=== PATIENT | male | born 1940 | race Caucasian/White ===

== ENCOUNTER 2023-10-09 04:10 | Emergency (ER) | payer MEDICARE, OTHER, SELFPAY ==
[2023-10-09 04:11] VITALS: BP 196/104; PULSE 83; RESP 16; TEMP 35.9; O2SAT 96; BMI 37.8
--- NOTE | 2023-10-09 04:39 | CT_ITS ---
INDICATION: RLQ pain EXAMINATION: CT ABDOMEN AND PELVIS WITHOUT CONTRAST - CT Abdomen And Pelvis W/O Contrast Injection TECHNIQUE: Helically acquired images were obtained of the abdomen and pelvis without oral or IV contrast. A radiation dose optimization technique was used for this scan. IV Contrast dosage and agent: None. Oral contrast: None. RADIATION DOSAGE (If Supplied By Facility): CTDIvol = ( 20.77 ) mGy, DLP = ( 1230.08 ) mGycm COMPARISON: No relevant prior comparison study available FINDINGS: LOWER CHEST: Groundglass opacities dependently could be atelectasis or chronic change. Coronary artery calcifications. No cardiomegaly or pericardial effusion. LIVER: The liver is normal in size, shape, and attenuation. No focal mass. GALLBLADDER AND BILIARY TREE: Cholecystectomy. No intra- or extrahepatic biliary ductal dilation. PANCREAS: No focal cystic or solid mass. SPLEEN: Normal size without focal cystic or solid mass. ADRENAL GLANDS: No nodules. KIDNEYS AND URETERS: Normal renal size and position. Simple cyst of the right kidney requires no specific follow-up. Mild to moderate bilateral hydroureteronephrosis. No obstructing calculus. The ureters are dilated to the bladder. PERITONEUM: No ascites or free air. No other fluid collection. BOWEL: The stomach is unremarkable. Normal caliber small bowel. No obstruction. Colonic diverticulosis without diverticulitis. No colonic wall thickening or inflammatory changes. No evidence of acute appendicitis. LYMPH NODES: No enlarged mesenteric or retroperitoneal lymph nodes. VESSELS: Aorta is non-dilated. Mild atherosclerotic calcifications. URINARY BLADDER: Distended bladder. No wall thickening. REPRODUCTIVE ORGANS: Enlarged prostate encroaching upon the base of the bladder. The prostate measures 7 cm transverse. ABDOMINAL WALL: No discrete abdominal or pelvic wall hernia. BONES: No acute or suspicious osseous abnormality. Degenerative changes are seen throughout the spine. Mild degenerative changes of the hips. CT/Abdomen/Pelvis without Cont IMPRESSION: Prostatomegaly with significantly distended bladder. Mild to moderate bilateral hydroureteronephrosis. This suggests outlet obstruction. Electronically Signed: Robert Valle MD at 5:54 EST ,
--- NOTE | 2023-10-09 04:42 | EDS_ITS ---
HPI HPI - GI History of Present Illness Chief Complaint: Abd Pain Informant: patient and spouse/S.O. Narrative Narrative: Patient presents with lower abdominal discomfort. Patient states that about a week or week and a half ago he started to get kind of discomfort in his lower abdomen. It is a little bit right of center but not completely to the right lower quadrant. He also noticed that he had to strain more to move his bowels. He still moving them. There is no blood or black. But he does have to push harder. He also then started to having occasional problems passing his urine. Sometimes he has a good stream and sometimes he has to push harder to get the urine out. Occasionally that has a small amount of discomfort with it. All these problems are new. He has had no fevers chills nausea or vomiting. He still eating and drinking fine. Last colonoscopy was approximately 5 years ago. He thinks he might have been told there was a small diverticula on one of his prior colonoscopies. But he is never had diverticulitis. Only abdominal surgery is cholecystectomy in the . Past medical history: High blood pressure high cholesterol Medications: Atenolol and atorvastatin No known drug allergies Surgeries: Cholecystectomy [facility] Medical History Failed total knee, left Home Medications atenolol 25 mg tablet 25 mg PO DAILY 10/09/23 [History Last Taken Unknown] atorvastatin 10 mg tablet 10 mg PO DAILY 10/09/23 [History Last Taken Unknown] tamsulosin 0.4 mg capsule (Flomax) 0.4 mg PO DAILY #30 caps 10/09/23 [Rx Last Taken Unknown] Allergy/AdvReac Type Severity Reaction Status Date / Time bee venom protein (honey bee) Allergy Mild Upset Verified 10/09/23 04:16 Stomach Surgical History (Updated 10/09/23 @ 04:17 by Naty Posada) History of cholecystectomy Social History Smoking Status: Never smoker ROS ROS ED ROS Narrative A complete review of systems was performed and is negative except as documented in the history of present illness. Some specific details below. Constitutional: No recent fevers or chills. He does not feel generalized ill. No malaise. EYE: No visual complaints or pain. ENT: No difficulty swallowing. No swelling. No pain. No GERD CV: No chest pain or palpitations. Respiratory: No dyspnea. No hemoptysis. No difficulty taking breaths. GI: Please see history of present illness. : See history of present illness. Musculoskeletal: No recent trauma. No pains. Skin: No rash. Nondiaphoretic. Neuro: No weakness or numbness. Endocrine: No polyuria or polydipsia. EXAM Physical Exam Narrative Exam Narrative: CONSTITUTIONAL: Patient is nontoxic in appearance. The patient looks comfortable. HEENT: No notable trauma. Mucous membranes moist. No sinus tenderness. No indication of pain with swallowing. EYES: No conjunctival injection. No proptosis. No pallor. No icterus. CARDIOVASCULAR: Regular rate. Regular rhythm. No notable murmur. No JVD. RESPIRATORY: No respiratory distress. Breathing is unlabored. No wheezes. GASTROINTESTINAL: Abdomen is somewhat obese but does not look distended. Bowel sounds do sound normal. There is very mild tenderness across the lower abdomen slightly more right than left. But it is mild. There is no rebound or guar ding. I feel no mass. GENITOURINARY: No tenderness over the bladder. No CVA tenderness noted on either side. MUSCULOSKELETAL: Atraumatic. No peripheral edema. NEUROLOGICAL: Patient is alert and appropriate. No focal deficit noted. SKIN: No noted rashes. No diaphoresis. PSYCHIATRIC: Patient is calm. Mood is appropriate. Const Vital Signs: 10/09/23 04:11 10/09/23 04:50 10/09/23 06:15 Temperature 96.7 F L Temperature Source Temporal Pulse Rate 83 64 61 Respiratory Rate 16 18 16 Blood Pressure 196/104 H 198/98 H 191/102 H Blood Pressure Mean 134 131 131 Pulse Ox 96 94 97 Oxygen Delivery Method Room Air Room Air Room Air MDM MDM MDM Narrative Medical decision making narrative: Patient CBC shows no marked abnormalities. Hemoglobin and platelets are both normal. Patient's electrolytes show high BUN and creatinine. But I have no prior lab test. I tried to sign onto the [employer] system but I am not able to gain access tonight I do not know if this is an acute or chronic issue. Patient's urine is overall clean on his urinalysis. My independent interpretation of the CT scan of the abdomen shows diverticula but no acute diverticulitis. I do note that his bladder is quite large. This may be the cause of his symptoms. This CT was done after he gave the urine sample. Postvoid residual still shows 1000 cc when we are able to get a bladder scanner down here. The urinary obstruction could definitely cause his symptoms with a distended bladder. This may be contributing to his elevated creatinine although I do not know if this is new or not. In either case, placing a Urena should relieve his symptoms, pressure, and should improve his creatinine. I was able to discuss the case with Dr. Suárez. We discussed the history findings slight bleeding afterwards and the elevated creatinine. We both expect this creatinine to come down. He can follow-up with the patient beginning of this coming week. My concern was that the patient it does not have an established primary care doctor now. His recently retired and he is trying to get in with Dr. Garcia but does not have an appointment yet. But he will follow- up with urology. He very likely will need a TURP in the future. I will get him started on Flomax. We will leave the catheter in. I rechecked the patient his urine is already coming out clear. There never were clots. He had some pinkish colored urine but it is already clearing. Lab Data Attestation: I reviewed the patient's lab results. Labs: Laboratory Results - last 24 hr 10/09/23 10/09/23 04:23 04:35 WBC 7.2 RBC 5.17 Hgb 15.7 Hct 46.0 MCV 89.0 MCH 30.4 MCHC 34.1 RDW Std Deviation 40.1 RDW Coeff of Herminio 12.3 Plt Count 158 MPV 9.4 Immature Gran % (Auto) 0.300 Neut % (Auto) 66.2 Lymph % (Auto) 16.5 L [place] % (Auto) 11.6 H Eos % (Auto) 4.7 Baso % (Auto) 0.7 Absolute Neuts (auto) 4.7 Absolute Lymphs (auto) 1.18 Nucleated RBC % 0 Sodium 144 Potassium 4.0 Chloride 113 H Carbon Dioxide 22.0 Anion Gap 9 BUN 43 H Creatinine 3.96 H Estim Creat Clear Calc 14.15 Est GFR (MDRD) Af Amer 19 L Est GFR (MDRD) Non-Af 16 L BUN/Creatinine Ratio 10.9 Glucose 110 H Calcium 8.6 Urine Color Yellow Urine Clarity Clear Urine pH 5.0 Ur Specific Bryant 1.015 Urine Protein Negative Urine Glucose (UA) Normal Urine Ketones Negative Urine Occult Blood Negative Urine Nitrite Negative Urine Bilirubin Negative Urine Urobilinogen Normal Ur Leukocyte Esterase Negative Urine RBC 0 SEEN Urine WBC 0 SEEN Ur Squamous Epith Cells 0 SEEN Urine Bacteria 0 SEEN Urine Mucus 0 SEEN Radiography Diagnostic Testing: Clinical Impression(s) from Imaging Studies Abdomen/Pelvis CT 10/09/23 04:39 IMPRESSION: Prostatomegaly with significantly distended bladder. Mild to moderate bilateral hydroureteronephrosis. This suggests outlet obstruction. Electronically Signed: Robert Valle MD at 5:54 EST , Discharge Plan Triage Chief Complaint: Abd Pain ED Provider: Kleber Bear Dx/Rx/DC Orders Clinical Impression: Acute kidney injury, Hematuria, Acute urinary retention, Prostatic hypertrophy Instructions: ED BPH (Enlarged Prostate), ED Urinary Retention, Male Prescriptions: New tamsulosin [Flomax] 0.4 mg capsule 0.4 mg PO DAILY Qty: 30 0RF No Action atenolol 25 mg tablet 25 mg PO DAILY Patient Comments: TAKE 1 TABLET BY MOUTH EVERY DAY atorvastatin 10 mg tablet 10 mg PO DAILY Patient Comments: TAKE 1 TABLET BY MOUTH EVERY DAY Primary Care Provider: NOT,DEFINED Referrals: Danial Suárez MD [Med Staff - Active Staff] - As soon as possible (Call today for an appointment early this coming week.) NOT,DEFINED [Primary Care Provider] - Disposition Disposition: Home, Self Care
[2023-10-09 04:44] LABS: Bacteria 0 SEEN /hpf (None Seen); Mucous, Urine 0 SEEN /hpf (<or=2+); Red Blood Cells-Urine 0 SEEN /hpf (0-5); Squamous Epithelial Cells - UA 0 SEEN /hpf (0-5); White Blood Cells 0 SEEN /hpf (0-5)
[2023-10-09] MEDS: 0.9% Normal Saline (1000mL) 500 ML 1000 ML IV (04:46)
[2023-10-09 04:49] LABS: Absolute Lymphocyte Count 1.18 X10^3/uL (0.83-4.51); Absolute Neutrophil Count 4.7 X10^3/uL (2.0-7.7); Basophil# 0.05 X10^3/uL; Basophil% 0.7 % (0-1); Eosinophil# 0.34 X10^3/uL; Eosinophils% 4.7 % (0-5); Hemoglobin 15.7 g/dL (13.0-16.5); Lymphocyte # 1.18 X10^3/ul (0.83-4.51); Lymphocyte % 16.5 % (19-41); Mean Corp Hgb Conc 34.1 g/dL (32-36); Mean Corpuscular Hgb 30.4 pg (27.0-32.0); Mean Platelet Vol. 9.4 fl (6.2-12.0); Monocyte# 0.83 X10^3/uL; Monocyte% 11.6 % (0-10); NRBC Flagged by Analyzer 0 % (0-5); Neutrophil # 4.74 X10^3/uL (2.7-7.7); Neutrophil % 66.2 % (47-70); Platelet Count 158 K/mm3 (150-450); RBC Distribution Width CV 12.3 % (11.6-14.6); RBC Distribution Width SD 40.1 fl (35.1-43.9); Red Blood Count 5.17 M/mm3 (4.6-6.2); White Blood Count 7.2 K/mm3 (4.4-11.0)
[2023-10-09 04:50] VITALS: BP 198/98; PULSE 64; RESP 18; O2SAT 94
[2023-10-09 04:50] LABS: Color, Urine Yellow (Yellow); Glucose, Dipstick Normal (Normal); Ketone-Dipstick Negative (Negative); Leukocyte Esterase-Dipstick Negative /ul (Negative); Nitrite-Dipstick Negative (Negative); Occult Blood-Urine Negative /ul (Negative); Protein-Dipstick Negative (Negative); Specific Gravity, Urine 1.015 (1.002-1.030); Urine Bilirubin Dipstick Negative (Negative); Urine Clarity Clear (Clear); Urine Urobilinogen Normal (Normal)
[2023-10-09 05:12] LABS: Anion Gap 9 (5-15); BUN 43 mg/dL (7-18); BUN/Creat Ratio 10.9 RATIO (10-20); Calcium,Total 8.6 mg/dL (8.5-10.1); Chloride 113 mmol/L (98-107); Creatinine, Serum 3.96 mg/dL (0.70-1.30); EST Glomerular Filtration Rate 16 mL/min (>60); Est Glom Filt Rate - Afr Amer 19 mL/min (>60); Estimated Creatinine Clearance 14.15 ml/min; Glucose 110 mg/dL (74-106); Sodium Level 144 mmol/L (136-145)
[2023-10-09 06:15] VITALS: BP 191/102; PULSE 61; RESP 16; O2SAT 97
== END 2023-10-09 09:24 | disposition home or self-care (01) ==
PROVIDERS: Emergency Provider Emergency Medicine; Visit Provider Emergency Medicine
DX: N17.9 Acute kidney failure, unspecified (principal); R31.9 Hematuria, unspecified; R33.8 Other retention of urine; N40.1 Benign prostatic hyperplasia with lower urinary tract symptoms; E78.00 Pure hypercholesterolemia, unspecified; I10 Essential (primary) hypertension; Z79.899 Other long term (current) drug therapy
CPT/HCPCS: 51702; 74176; 80048; 81001; 85025; 87086; 96360; 99283; J7040; A4216

== ENCOUNTER → 2023-10-13 | Outpatient (CLI) | payer MEDICARE, OTHER, SELFPAY ==
[2023-10-13 17:34] LABS: Absolute Lymphocyte Count 1.59 X10^3/uL (0.83-4.51); Absolute Neutrophil Count 4.7 X10^3/uL (2.0-7.7); Basophil# 0.04 X10^3/uL; Basophil% 0.5 % (0-1); Eosinophil# 0.48 X10^3/uL; Hematocrit 47.5 % (40-54); Hemoglobin 15.9 g/dL (13.0-16.5); Lymphocyte # 1.59 X10^3/ul (0.83-4.51); Lymphocyte % 19.9 % (19-41); Mean Corp Hgb Conc 33.5 g/dL (32-36); Mean Corpuscular Hgb 30.1 pg (27.0-32.0); Mean Corpuscular Volume 89.8 fL (80-94); Mean Platelet Vol. 9.8 fl (6.2-12.0); Monocyte# 1.13 X10^3/uL; Monocyte% 14.1 % (0-10); NRBC Flagged by Analyzer 0 % (0-5); Neutrophil # 4.72 X10^3/uL (2.7-7.7); Neutrophil % 58.9 % (47-70); Platelet Count 192 K/mm3 (150-450); RBC Distribution Width CV 12.1 % (11.6-14.6); RBC Distribution Width SD 39.8 fl (35.1-43.9); Red Blood Count 5.29 M/mm3 (4.6-6.2)
[2023-10-13 18:08] LABS: AST(SGOT) 18 U/L (15-37); Alanine Aminotransfer ALT/SGPT 28 U/L (16-61); Albumin, Serum 3.6 g/dL (3.2-5.0); Alkaline Phosphatase 118 U/L (45-117); Anion Gap 8 (5-15); BUN 25 mg/dL (7-18); BUN/Creat Ratio 11.7 RATIO (10-20); Calcium,Total 8.8 mg/dL (8.5-10.1); Chloride 107 mmol/L (98-107); Cholesterol 95 mg/dL (200); Creatinine, Serum 2.13 mg/dL (0.70-1.30); EST Glomerular Filtration Rate 32 mL/min (>60); Est Glom Filt Rate - Afr Amer 39 mL/min (>60); Globulin 3.7 g/dL (2.2-4.2); Glucose 106 mg/dL (74-106); High Density Lipoprotein 32 mg/dL; PSA,Total - Annual Screen 6.05 ng/mL (0.00-4.00); Potassium 4.2 mmol/L (3.5-5.1); Protein, Total 7.3 g/dL (6.4-8.2); Sodium Level 140 mmol/L (136-145); Triglycerides 78 mg/dL; Very Low Density Lipoprotein 16 mg/dL (5-40)
== END | disposition home or self-care (01) ==
LOC: MFPLAB 15:37
PROVIDERS: PCP Family Medicine; Visit Provider Family Medicine
DX: E78.5 Hyperlipidemia, unspecified (principal); N40.0 Benign prostatic hyperplasia without lower urinary tract symptoms; I10 Essential (primary) hypertension; Z12.5 Encounter for screening for malignant neoplasm of prostate
CPT/HCPCS: 36415; 80053; 80061; 84153; 85025; G0103

== ENCOUNTER 2023-11-04 17:09 | Inpatient (IN) | payer MEDICARE, OTHER, SELFPAY ==
[2023-11-04] VITALS (11 sets, daily range): BP systolic 129–169; BP diastolic 69–95; PULSE 54–99; RESP 14–18; TEMP 36.2–37.3; O2SAT 92–100; BMI 35.3; BMI 34.8
[2023-11-04] MEDS: Lactated Ringers 1,000 ML 15 ML IV ×2 (11:15→16:41)
--- NOTE | 2023-11-04 12:45 | PROSB_PTH ---
PATHOLOGY RESULTS PATIENT: REA LAWRENCE LOC: MS3 U#:[id number] AGE/SX: 83/M [facility] [facility] [place]04[place]: Dr. Danial Suárez MD : 1940 BED: 1 DIS: 11/06/2023 SPEC #: [id number] RECD: 11/05/23 07:31 STATUS: AMANDA OZUNA #: [id number] SUZETTE: 11/04/23 12:[address]: Danial Suárez DEPT: SURGICAL PATHOLOGY RECD BY: Anita Henley ENTERED: 11/05/23 07:31 SP TYPE: PROST BX OTHR DR: Yamileth Garcia MD Tissues: Prostate, NOS Procedures: Surgery Specimen Level V HEADER OPERATION: Laparoscopic robotic simple prostatectomy PRE-OP DIAGNOSIS: BPH with obstruction and urinary retention TISSUE SUBMITTED: Prostate tissue MICROSCOPIC DIAGNOSIS Prostate tissue, simple prostatectomy: Benign prostatic hyperplasia, glandular and stromal type. Chronic inflammation. SJ:chaitanya 11/06/2023 MICROSCOPIC DESCRIPTION Slides are reviewed. GROSS DESCRIPTION Received in fixative is one container labeled with the patient's name and designated prostate tissue. The specimen consists of a simple prostatectomy specimen in multiple pieces weighing 23.1 gm and measuring in aggregate 6.0 x 7.0 x 3.0 cm. The largest piece measures 4.0 cm in greatest dimension. Sections do not reveal any mass lesions. Chief Financial Officer sections are submitted in ten cassettes. / CASEY:chaitanya 11/05/2023 TC:5 CPT: 93102
[2023-11-04] MEDS: Cefazolin 2 GM in 0.9% Normal Saline (100mL Bag) 100 ML IV (13:36)
[2023-11-04] MEDS: Bupivacaine Mpf 0.5% 30 ML VIAL (16:07)
--- NOTE | 2023-11-04 16:23 | DCINST_ITS ---
Discharge Instructions Diet Discharge Diet: No restrictions, Light diet - advance as tolerated and Soft diet Activity Discharge Activity: Return to Normal Activity and May Drive Dressing / Incision Call your doctor if you observe: Fever of 101 or Higher Suture Line Care: Avoid Pulling/Pushing and Avoid Pinching/Bending Cleanse incision/area with: Soap & Water Catheter: Mendiola to leg bag and Mendiola to large bag Drain: [place] Follow Up Care Please Follow Up With: Danial Suárez MD When: 10 days to have mendiola removed Test Results: Test results from this visit will be discussed in further detail at your follow- up appointment, if applicable. Discharge Plan Admission Primary Reason for Your Visit: Simple prostatectomy Attending Provider: Danial Suárez Primary Care Provider: Yamileth Garcia Discharge Orders/Prescriptions Prescriptions: New ciprofloxacin HCl [Cipro] 500 mg tablet 500 mg PO BID Qty: 14 0RF oxycodone 5 mg tablet 5 mg PO Q6H PRN (Reason: pain) 7 Days Qty: 14 0RF Continued amlodipine 5 mg tablet 5 mg PO DAILY Patient Comments: TAKE 1 TABLET BY MOUTH EVERY DAY atenolol 25 mg tablet 25 mg PO DAILY Patient Comments: TAKE 1 TABLET BY MOUTH EVERY DAY atorvastatin 10 mg tablet 10 mg PO DAILY Patient Comments: TAKE 1 TABLET BY MOUTH EVERY DAY tamsulosin [Flomax] 0.4 mg capsule 0.4 mg PO DAILY Qty: 30 0RF Referrals / Follow Up: Yamileth Garcia MD [Primary Care Provider] - Danial Suárez MD [Med Staff - Active Staff] - Disposition Disposition (needs filled in before D/C Order can be placed): Home, Self Care
--- NOTE | 2023-11-04 16:23 | PCM.HP.STD ---
HPI - General General Date of Service: 11/04/23 Chief Complaint: Retention of urine HPI Narrative REA LAWRENCE, is a 83 M who presents For a simple robotic prostatectomy has a very large prostate we plan to proceed with a simple robotic prostatectomy for retention of urine PFSH Medical History (Updated 11/04/23 @ 16:[address] Danial Suárez MD) Failed total knee, left High cholesterol Hypertension Prostate disease Wears dentures Wears glasses Wears hearing aid Home Medications atenolol 25 mg tablet 25 mg PO DAILY 10/09/23 [History Last Taken 11/04/23] atorvastatin 10 mg tablet 10 mg PO DAILY 10/09/23 [History Last Taken 11/03/23] tamsulosin 0.4 mg capsule (Flomax) 0.4 mg PO DAILY #30 caps 10/09/23 [Rx Last Taken 11/03/23] amlodipine 5 mg tablet 5 mg PO DAILY 10/22/23 [History Last Taken 11/04/23] ciprofloxacin HCl 500 mg tablet (Cipro) 500 mg PO BID #14 tabs 11/04/23 [Rx Last Taken Unknown] oxycodone 5 mg tablet 5 mg PO Q6H PRN pain 7 days #14 tabs 11/04/23 [Rx Last Taken Unknown] Allergy/AdvReac Type Severity Reaction Status Date / Time bee venom protein (honey bee) Allergy Mild Upset Verified 11/04/23 11:00 Stomach Surgical History (Updated 10/22/23 @ 13:38 by Samantha Carlos) History of cholecystectomy History of colonoscopy History of total left knee replacement (TKR) Social History Smoking Status: Never smoker Vital Signs Vital Signs Vital Signs: 11/04/23 11:01 11/04/23 11:01 Temperature 97.7 F L Temperature Source Temporal Pulse Rate 60 Respiratory Rate 18 Respiratory Pattern Normal Blood Pressure 146/91 H Blood Pressure Mean 109 Blood Pressure Source Monitor Blood Pressure Position Semi-Fowlers Blood Pressure Location Left Arm Pulse Ox 97 Oxygen Delivery Method Room Air Weight Weight: 105.4 kg Body Mass Index (BMI) 35.3
--- NOTE | 2023-11-04 16:24 | PCM.OPRPT ---
Report of Operation Date of Procedure: 11/04/23 Pre-Operative Diagnosis: BPH with retention of urine very large prostate Post-Operative Diagnosis: Same Surgery/Procedure Performed:: Laparoscopic assisted robotic prostatectomy, simple Description of Surgical Findings:: Patient presents for a simple robotic prostatectomy. He understands that organ to do enucleation of the obstructing adenoma and then after his surgery he will need a catheter to allow this to heal. He understands is no guarantees that after the surgery he will be able to urinate spontaneously and may need to learn how to do self intermittent catheterization. We also talked about the risk of surgery which involves risk of bleeding and infection scar tissue formation bladder neck contracture. Patient was taken back to the operating room at this induction of anesthesia he underwent and intubation and was placed supine on the table. The abdomen was shaved prepped and draped in usual sterile fashion. A Urena catheter was placed into the penis. I then infiltrated the skin above the umbilicus with lidocaine and made a small 5 mm incision in the skin. I then advanced a Veress needle into the peritoneal cavity and inflated the peritoneal cavity with CO2 gas. Once the pressure was at 15 mm and a nice distention of the abdomen then the camera trocar was put into the abdomen. We then looked in with the 0 degree lens and we placed a right arm trocar and left arm trocar and then an air seal suction port high up in the abdomen to allow the program support assistant to use this for suction. The robot was then docked and then we proceeded with the dissection. The colon was mobilized from the flexure of the colon on the patient's left side once this was freed up then the bladder was distended with 300 cc of sterile normal saline. I then made an incision in the bladder in the midline once we got inside the bladder that drained out all the saline we then used 2 Kevin needles to retract the bladder laterally. Once the bladder was retracted in a clamshell fashion laterally then we got inside the bladder inspected the bladder deflated the balloon left the catheter in place. We then started with scoring the mucosa circumferentially all the way around very large protruding adenomatous prostate. I then dissected between the adenoma and the bladder inferiorly working my way in the avascular enucleation plane between the adenoma and the prostate capsule, pseudocapsule all the way inferiorly I then started working my way laterally up on the right side of the prostate until I got to the anterior part freeing up the adenomatous tissue from the prostate and the anterior tissue and cutting through the bladder muscle and mucosa. We then worked our way laterally on the left side of the adenomatous tissue freeing up the adenoma from the prostate and the bladder muscle and mucosa I then came on top of the adenoma and was able to retract the adenoma out and then split the adenoma in half and identified the catheter and then identified the urethral strip the urethral strip was then carefully transected and then the right adenomatous tissue was removed and then the left adenomatous tissue was removed all intact and all this was placed in Endo Catch bag. Then we cauterized the prostate fossa extensively to control hemostasis Floseal was placed in the prostatic fossa. I then used a 3 oh V-Loc stitch to bring down the mucosa and advance it down towards the urethra circumferentially to advance the mucosa down to the urethral stump. We then placed a Urena catheter, 20 Mauritanian into the bladder with no continuous irrigation. Irrigate out the bladder irrigate all the clots out we then closed the bladder with 2 layers using 2 oh V-Loc stitch and then a 4-0 Vicryl stitch. Both the Kevin needles were removed that were retracting the bladder. We then undocked the robot we extracted the prostate adenoma through the umbilicus port we closed the air seal port with 1012 stitch and then we closed all the other ports with subcuticular stitches once the prostate was extracted to the camera port and we reapproximated the fascia and the camera port with a 0 Vicryl [id number] fashion stitch. Minimal blood loss during the case catheter was irrigated and draining well patient anesthetic was reversed and he was taken back to the PACU in good condition. Surgeon: Danial Suárez Type of Anesthesia: General Drains: 22fr 3 way Estimated Blood Loss (mL): 250 Admit VTE Documentation VTE Present on Admission: No VTE Mechan Device Prophylaxis: SCD's VTE Pharm Prophylaxis ordered?: No
--- NOTE | 2023-11-04 17:31 | SUR.PHASEI ---
paper prescription for discharge pain meds was sent with pt, per md couldn't file them electronically.
[2023-11-04] MEDS: 0.9% Normal Saline (1000mL) 1,000 ML 50 ML IV (18:35)
[2023-11-04] MEDS: Tamsulosin HCl 0.4 MG Capsule 0.400000000000000022 MG PO (18:35)
[2023-11-04] MEDS: Ciprofloxacin 400 MG/200 ML BAG 200 MG IV (21:27)
[2023-11-04] MEDS: oxyCODONE 5 MG Tablet PO (21:29)
[2023-11-04] MEDS: Atorvastatin Calcium 10 MG Tablet PO (21:29)
[2023-11-04] MEDS: 0.9% Saline Lock 10 ML Syringe IV (21:29)
[2023-11-04] MEDS: Docusate Sodium 100 MG Capsule 200 MG PO (21:29)
[2023-11-04] MEDS: Tolterodine Tartrate 4 MG CAP.SA PO (22:39)
[2023-11-05] VITALS (7 sets, daily range): BP systolic 128–144; BP diastolic 68–90; PULSE 62–94; RESP 16–18; TEMP 36.6–37.7; O2SAT 92–96
[2023-11-05 05:40] LABS: Hematocrit 41.4 % (40-54); Hemoglobin 13.6 g/dL (13.0-16.5); Mean Corp Hgb Conc 32.9 g/dL (32-36); Mean Corpuscular Hgb 29.7 pg (27.0-32.0); Mean Corpuscular Volume 90.4 fL (80-94); Mean Platelet Vol. 9.1 fl (6.2-12.0); Platelet Count 171 K/mm3 (150-450); RBC Distribution Width CV 12.2 % (11.6-14.6); RBC Distribution Width SD 39.5 fl (35.1-43.9); Red Blood Count 4.58 M/mm3 (4.6-6.2); White Blood Count 9.6 K/mm3 (4.4-11.0)
[2023-11-05 06:08] LABS: Anion Gap 6 (5-15); BUN 23 mg/dL (7-18); BUN/Creat Ratio 13.4 RATIO (10-20); Calcium,Total 8.2 mg/dL (8.5-10.1); Chloride 107 mmol/L (98-107); Creatinine, Serum 1.72 mg/dL (0.70-1.30); EST Glomerular Filtration Rate 41 mL/min (>60); Est Glom Filt Rate - Afr Amer 49 mL/min (>60); Estimated Creatinine Clearance 32.59 ml/min; Glucose 145 mg/dL (74-106); Potassium 4.6 mmol/L (3.5-5.1); Sodium Level 140 mmol/L (136-145)
[2023-11-05] MEDS: Docusate Sodium 100 MG Capsule 200 MG PO ×2 (08:30→21:52)
[2023-11-05] MEDS: Atenolol 25 MG Tablet PO (08:30)
[2023-11-05] MEDS: amLODIPine 5 MG Tablet PO (08:30)
[2023-11-05] MEDS: Ciprofloxacin 400 MG/200 ML BAG 200 MG IV (10:09)
--- NOTE | 2023-11-05 11:24 | CASEMGMT ---
Social Work SW met with pt to discuss advance directives.? Pt confirms he has completed a living will and health care POA naming his Deedee Ybarra.? Pt notified that documents are not on file at [facility] and SW requested they be brought in for scanning into the EMR.? IRINEO Loja
[2023-11-05 12:01] LABS: Bedside Glucose 168 mg/dL (74-106)
[2023-11-05] MEDS: 0.9% Normal Saline (1000mL) 1,000 ML 50 ML IV (13:35)
--- NOTE | 2023-11-05 16:58 | CASEMGMT ---
Met with patient to complete CRANDALL form. CRANDALL form explained to patient who voiced understanding and signed form. Original form placed in pt?s chart and copy provided to patient.? Alayna Flores, Discharge Planning Asst
[2023-11-05] MEDS: Tamsulosin HCl 0.4 MG Capsule 0.400000000000000022 MG PO (17:17)
[2023-11-05] MEDS: Atorvastatin Calcium 10 MG Tablet PO (21:52)
[2023-11-06 02:43] VITALS: BP 148/82; PULSE 92; RESP 18; TEMP 36.7; O2SAT 92
[2023-11-06 07:00] VITALS: O2SAT 93
[2023-11-06] MEDS: Docusate Sodium 100 MG Capsule 200 MG PO (08:04)
[2023-11-06] MEDS: Atenolol 25 MG Tablet PO (08:04)
[2023-11-06] MEDS: amLODIPine 5 MG Tablet PO (08:04)
[2023-11-06 09:27] VITALS: BP 98/70; PULSE 88; RESP 16; TEMP 37.2; O2SAT 92
--- NOTE | 2023-11-06 10:30 | CASEMGMT ---
This RN CM to pt bedside at this time regarding pt DC needs. Pt states his only concern regarding DC is if his insurance will pay for his stay here. HARPER Miller CM to f/u on this. Pt also states that he is comfortable with Urena care, as he has had this in the past. Pt denies any other needs at time of DC. Pt states that he is independent and is ready to go home.
[2023-11-06 11:30] VITALS: BP 124/55; PULSE 88; RESP 16; TEMP 36.8; O2SAT 92
--- NOTE | 2023-11-06 14:00 | CASEMGMT ---
HARPER BATES Follow-up: This RN CM met with pt face to face. Pt alert sitting up in the chair. Pt states he was told if the documentation was appropriate he could be an inpt rather than an observation pt. Explained to pt that the is currently an observation outpatient due to his procedure being an outpatient procedure and not being on the inpt only list. Pt states he anticipates being discharged on this date to home. Informed pt that if he were to remain hospitalized, his case will be reviewed for possible conversion to inpt status if appropriate. Pt expressed understanding and denied any further questions at this time. Jefe Duran RN AC
[2023-11-06 15:20] VITALS: BP 111/67; PULSE 91; RESP 16; TEMP 37; O2SAT 92
--- NOTE | 2023-11-06 16:34 | PCM.PN.GU ---
Subjective Subjective Patient is status post simple radical prostatectomy robotically we will have to keep him longer so he will be inpatient because of bleeding postop Objective Data Objective Data Vital Signs: Vital Signs Temp Pulse Resp BP Pulse Ox O2 Del Method O2 Flow Rate 98.6 F 91 16 111/67 92 Room Air 2 11/06/23 15:20 11/06/23 15:20 11/06/23 15:20 11/06/23 15:20 11/06/23 15:20 11/06/23 15:20 11/05/23 01:24 Oxygen Flow Rate (L/min) 2 Oxygen Delivery Method Room Air Weight: 105.4 kg Body Mass Index (BMI) 34.8 Intake & Output: Intake and Output for Last 24 Hours 11/04/23 11/05/23 11/06/23 23:59 23:59 23:59 Intake Total 2488.92 / 2488.92 1328.34 / 1328.34 250 / 250 Output Total 4250 / 4250 1600 / 1600 Balance -1761.08 / -1761.08 -271.66 / -271.66 250 / 250 Lab / Micro Data 11/05/23 05:10 11/05/23 05:10
--- NOTE | 2023-11-06 16:35 | DS.PCM_ITS ---
Providers Date of Admission: 11/04/23 Date of Discharge: 11/06/23 Primary Care Physician: Yamileth Garcia MD Reason For Visit: Laparoscopic Robotic Simple Prostat Medications at Discharge Home Medications atenolol 25 mg tablet 25 mg PO DAILY 10/09/23 atorvastatin 10 mg tablet 10 mg PO DAILY 10/09/23 tamsulosin 0.4 mg capsule (Flomax) 0.4 mg PO DAILY #30 caps 10/09/23 amlodipine 5 mg tablet 5 mg PO DAILY 10/22/23 ciprofloxacin HCl 500 mg tablet (Cipro) 500 mg PO BID #14 tabs 11/04/23 oxycodone 5 mg tablet 5 mg PO Q6H PRN pain 7 days #14 tabs 11/04/23 Hospital Course Summary of Care Provided Minutes Spent on Discharge: 20 Hospital Course: 83-year-old male status post simple robotic prostatectomy had to stay tonight in the hospital because of postop bleeding finally stabilized to go home today with a catheter to gravity drainage Physical Exam Const alert and oriented x3 General Appearance: cooperative HEENT normocephalic and head/scalp atraumatic Eyes PERRL and EOMs intact bilaterally Neck supple, no JVD and no carotid bruits Resp normal respiratory effort, normal air movement and clear to auscultation bila terally Cardio regular rate and no murmurs GI normal to inspection, nondistended, normoactive bowel sounds and soft to palpation Extremity normal capillary refill General Extremity: no tenderness to palpation of joints or extremities; Negative for edema Skin no rashes or lesions noted and no wounds General Skin Exam: no breakdown Neuro CN's II-XII intact bilaterally Psych affect normal Appearance: appropriate Weight / BMI Weight Weight: 105.4 kg Body Mass Index (BMI) 34.8 ABG / Lab / Microbiology Data 11/05/23 05:10 11/05/23 05:10 D/C Instructions Discharge Diet: No restrictions, Light diet - advance as tolerated and Soft diet Call your doctor if you observe: Fever of 101 or Higher Suture Line Care: Avoid Pulling/Pushing and Avoid Pinching/Bending Cleanse incision/area with: Soap & Water Catheter: Mendiola to leg bag and [place]iola to large bag Drain: [place] Please Follow Up With: Danial Suárez MD When: 10 days to have mendiola removed Meaningful Use Info Meaningful Use Diagnoses (Choose all that apply): None applicable Discharge Plan Admission Admit Date/Time: 11/04/23 17:09 Primary Reason for Your Visit: Simple prostatectomy Attending Provider: Danial Suárez Primary Care Provider: Yamileth Garcia Discharge Orders/Prescriptions Prescriptions: New ciprofloxacin HCl [Cipro] 500 mg tablet 500 mg PO BID Qty: 14 0RF oxycodone 5 mg tablet 5 mg PO Q6H PRN (Reason: pain) 7 Days Qty: 14 0RF Continued amlodipine 5 mg tablet 5 mg PO DAILY Patient Comments: TAKE 1 TABLET BY MOUTH EVERY DAY atenolol 25 mg tablet 25 mg PO DAILY Patient Comments: TAKE 1 TABLET BY MOUTH EVERY DAY atorvastatin 10 mg tablet 10 mg PO DAILY Patient Comments: TAKE 1 TABLET BY MOUTH EVERY DAY tamsulosin [Flomax] 0.4 mg capsule 0.4 mg PO DAILY Qty: 30 0RF Referrals / Follow Up: Yamileth Garcia MD [Primary Care Provider] - Danial Suárez MD [Med Staff - Active Staff] -
--- OUTSIDE RECORDS SUMMARY | 2023-11-06 20:47 | XMS RPT_ITS | CCD ---
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 Name Role Phone Ming Levy Attending Unavailable Ina De Luna Primary Care Unavailable Ina De Luna Primary Care Unavailable Gregory Schafer Admitting Unavailable Gregory Schafer Attending Unavailable Garcia Pereira Consulting Unavailable Deyvi Bowling Admitting Unavailable Deyvi Bowling Attending Unavailable Deyvi Bowling Referring Unavailable Ina De Luna Primary Care Unavailable Ming Levy Attending Unavailable Ina De Luna Primary Care Unavailable Ina De Luna Primary Care Provider Ina De Luna Primary Care Provider INA DE LUNA Primary Care Unavailable MYRIAM OLSEN Attending Unava ilable Ina De Luna Primary Care Provider Ina De Luna MD Primary Care Provider Prabhakar Mcleod Unavailable GERMAN BLACKWELL Attending Unavailable INA DE LUNA Primary Care Unavailable GERMAN BLACKWELL Referring Unavailable INA DE LUNA Primary Care Unavailable GERMAN BLACKWELL Referring Unavailable GERMAN BLACKWELL Attending Unavailable Allergies Allergy Classification Reported Allergen(s) Allergy Type Date of Onset Reaction(s) Facility (5 sources) Bee Sting; Translations: [BEE STING] Allergy to substance 11-22-2014 Vomiting [facility] Medications Current Medications Medication Drug Class(es) Dates Sig (Normalized) Sig (Original) benoxinate hydrochloride 4 mg/ml / fluorescein sodium 2.5 mg/ml ophthalmic solution (1 source) Diagnostic Dye Start: 04-22-2022 End: 04-22-2022 fluorescein-benoxin ate 0.25-0.4 % 1 Drop (FLURESS) phenylephrine hydrochloride 25 mg/ml ophthalmic solution (3 sources) alpha-1 Adrenergic Agonist Start: 09-09-2023 End: 09-09-2023 PHENYLephrine 2.5 % 1 Drop (AK-DILATE, ROSEMARY-SYNEPHRINE) Completed/Discontinued Medications Medication Drug Class(es) Dates Sig (Normalized) Sig (Original) atorvastatin 10 mg oral tablet (4 sources) HMG-CoA Reductase Inhibitor take 1 tablet by mouth once daily atorvastatin (LIPITOR) 10 mg tablet Take 10 mg by mouth once daily. 0 Active Problems Problem Classification Problem Date Documented Da te Episodic/Chronic Blindness and vision defects (7 sources) Visual field defect; Translations: [Unspecified visual field defects] Onset: 01-28-2021 01-28-2021 Episodic Cataract (5 sources) Bilateral pseudophakia; Translations: [Presence of intraocular lens] Onset: 09-11-2016 09-11-2016 Chronic Chronic obstructive pulmonary disease and bronchiectasis (2 sources) Bronchitis, not specified as acute or chronic; Translations: [Bronchitis, not specified as acute or chronic] Onset: 09-08-2022 Episodic Essential hypertension (8 sources) Essential hypertension; Translations: [Essential (primary) hypertension] Onset: 12-14-2020 Chronic Glaucoma (11 sources) Low tension glaucoma of right eye; Translations: [Low-tension glaucoma, right eye, mild stage] Onset: 01-28-2021 Chronic Inflammation; infection of eye (except that caused by tuberculosis or sexually transmitteddisease) (4 sources) Bilateral punctate keratitis of eyes; Translations: [Punctate keratitis, bilateral] Onset: 09-10-2017 09-10-2017 Chronic Other eye disorders (8 sources) Optic cupping; Translations: [Glaucomatous optic atrophy, bilateral] Onset: 11-24-2020 Chronic Other eye disorders (4 sources) Bilateral vitreous floaters; Translations: [Other vitreous opacities, bilateral] Onset: 11-22-2014 09-11-2015 Chronic Results Test Name Value Interpretation Reference Range Facil ity Vital Signs Date Time Vital Sign Value Performing Clinician Cristian marcum 04-22-2022 11:18-0400 Diastolic blood pressure 96 mm[Hg] German Blackwell MD Work Phone: [facility] 04-22-2022 11:18-0400 Heart rate 89 /min German Blackwell MD Work Phone: [facility] 04-22-2022 11:18-0400 Systolic blood pressure 124 mm[Hg] German Blackwell MD Work Phone: [facility] Encounters Encounter Date Encounter Type Care Provider Facility Start: 09-09-2023 End: 09-09-2023 ambulatory GERMAN BLACKWELL Facility:[facility] Start: 09-09-2023 End: 09-09-2023 Patient encounter procedure German Blackwell MD Work Phone: Ophthalmology Procedures Date Procedure Procedure Detail Performing Clinician Start: 09-09-2023 End: 09-09-2023 Fundus photography w/interpretation & report German Blackwell MD Work Phone: Start: 09-09-2023 Visual field xm uni/ bi w/interp extended exam German Blackwell MD Work Phone: Start: 03-09-2023 History of laser ass isted in situ keratomileusis Hx of LASIK German Blackwell MD Work Phone: Start: 03-09-2023 End: 03-09-2023 Visual field xm uni/bi w/interp extended exam German Blackwell MD Work Phone: Start: 08-29-2022 Fundus photography w/interpretation & report German Blackwell MD Work Phone: Start: 04-22-2022 End: 04-22-2022 Visual field xm uni/bi w/interp extended exam German Blackwell MD Work Phone: Start: 12-14-2019 Follow-up visit Plan of Treatment Date Care Activity Detail Author Start: 07-10-2023 Covid-19 Vaccine ( season) Covid-19 Vaccine ( season) [facility] Start: 11-09-2022 ADVANCE DIRECTIVE DISCUSSION ADVANCE DIRECTIVE DISCUSSION [facility] Start: 11-09-2022 DEPRESSION ASSESSMENT DEPRESSION ASS ESSMENT [facility] Start: 07-10-2022 Influenza vaccination INFLUENZA (#1) [facility] Start: 02-08-2022 COVID-19 VACCINE (4 - Booster for Moderna series) COVID-19 VACCINE (4 - Booster for Moderna series) [facility] Start: 12-05-2021 COVID-19 VACCINE (4 - Booster for Moderna series) COVID-19 VACCINE (4 - Booster for Moderna series) [facility] Start: 11-09-2021 ADVANCE DIRECTIVE DISCUSSION ADVANCE DIRECTIVE DISCUSSION [facility] Start: 11-09-2021 DEPRESSION ASSESSMENT DEPRESSION ASS ESSMENT [facility] Start: 09-30-2018 Pneumococcal Vaccine : 65+ (2 - PCV) Pneumococcal Vaccine: 65+ (2 - PCV) [facility] Start: 2007 PNEUMOCOCCAL: 65+ (1 - PCV) PNEUMOCOCCAL: 65+ (1 - PCV) [facility] Start: 2002 RSV Vaccine (1 - 1-d ose 60+ series) RSV Vaccine (1 - 1-dose 60+ series) [facility] Start: 1992 SHINGRIX VACCINE (1 of 2) SHINGRIX V ACCINE (1 of 2) [facility] Start: 1987 DIABETES SCREEN [facility] Start: 1987 Diabetes Screening Diabetes Screenin g [facility] Start: 1961 Urine microalbumin profile [facility] Start: 1960 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 ELISA DISEASE VISIT ANNUAL PCP TEAM CHRONIC DISEASE VISIT [facility] Start: 1960 BP CONTROLLED (<130/80) BP CONTROLLE D (<130/80) [facility] Start: 1954 Adult depression screening assessment DEPRESSION SCREENING [facility] Payers Date Payer Category Payer Unknown 2016 Medicare [place] [employer]E [employer] VELIA MOSESS SUPPLEMENT [id number] 2016-Present [phone] [place], [place] [address] [address] Medicare [id number] 2007 Medicare [id number] 2007 Medicare 2007 Medicare MEDICARE MEDICAR E A AND B [id number] 2007-Present [phone] [address] [address] [place] [address] Medicare [id number] 1942 Unknown [id number] 1942 Unknown [id number] 1942 Unknown [id number] 1942 Unknown [id number] 1942 Unknown [id number] 1942 Unknown [id number] 1942 Unknown [id number] Medicare [id number] Unknown [id number] Social History Date Type Detail Facility Start: 11-22-2014 End: 11-04-2018 Tobacco smoking status MIIS Never smoked tobacco [facility] Start: 11-22-2014 End: 11-04-2018 Tobacco use and exposure Smokeless tobacco non-user [facility] Start: 04-22-2022 End: 09-09-2023 Alcohol intake Ex-drinker (finding) [facility] Start: 1940 Sex Assigned At Not on file [facility] Start: 04-12-2022 End: 08-29-2022 Exposure to SARS-CoV-2 (event) Not sure [facility] Start: 09-09-2023 History of Social function [facility] Start: 09-09-2023 Tobacco use panel [facility] National Score (1-10 0), lower number is lower risk 59 [facility] Clinical Notes 03-22-2021 to 09-09-2023 Patient InstructionsGerman Blackwell MD - 09/09/2023 9:43 AM EDTPatient InstructionsMojevon Blackwell MD - 03/09/2023 9:10 AM EDT Note Date & Type Note Facility 09-09-2023 Note HNO ID: [id number] Author: German Blackwell MD Service: ? Author Type: Physician Type: Progress Notes Filed: 09/09/2023 10:30 AM Note Text: ASSESSMENT/PLAN: 1. Primary open angle glaucoma (POAG) of both eyes, moderate stage - ICD9: 365.11, 365.72, ICD10: H40.1132 (primary diagnosis) 2. 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 The nature of glaucoma was discussed, with emphasis on the non-reversible damage to the optic nerve. Treatment options and the importance of regular examinations and testing were covered in detail, as well as the consequences of non-compliance. The patient was given the opportunity to ask questions. 3. Visual field loss - ICD9: 368.40, ICD10: H53.40 -Continue to monitor 4. Essential hypertension - ICD9: 401.9, ICD10: I10 -Continue to monitor with primary care physician. I have confirmed and edited as necessary the relevant ophthalmic history, review of systems, surgical history, and ophthalmological examination findings as obtained by the ophthalmic technical staff. I have seen and examined Rea Ybarra. I have discussed the examination findings, diagnosis, and treatment options with Rea Ybarra and/or his family. I have also reviewed and agree with the assessment and plan as stated above and agree with all its relevant components. I gave the patient the opportunity to ask questions about the findings, diagnosis, and treatment options. German Blackwell MD [facility] 09-09-2023 Instructions German Blackwell MD - 09/09/2023 10:30 AM EDT If you have any questions please contact our office at [phone]. After office hours or on the weekend, please call Dr. Blackwell on his cell phone at [phone]. documented in this encounter [facility] 09-09-2023 History of Present illness Narrative ASSESSMENT/PLAN: 1. Primary open angle glaucoma (POAG) of both eyes, moderate stage - ICD9: 365.11, 365.72, ICD10: H40.1132 (primary diagnosis) 2. 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 The nature of glaucoma was discussed, with emphasis on the non-reversible damage to the optic nerve. Treatment options and the importance of regular examinations and testing were covered in detail, as well as the consequences of non-compliance. The patient was given the opportunity to ask questions. 3. Visual field loss - ICD9: 368.40, ICD10: H53.40 -Continue to monitor 4. Essential hypertension - ICD9: 401.9, ICD10: I10 -Continue to monitor with primary care physician. I have confirmed and edited as necessary the relevant ophthalmic history, review of systems, surgical history, and ophthalmological examination findings as obtained by the ophthalmic technical staff. I have seen and examined Rea Ybarra. I have discussed the examination findings, diagnosis, and treatment options with Rea Ybarra and/or his family. I have also reviewed and agree with the assessment and plan as stated above and agree with all its relevant components. I gave the patient the opportunity to ask questions about the findings, diagnosis, and treatment options. German Blackwell MD documented in this encounter [facility] 03-09-2023 Note HNO ID: [id number] Author: German Blackwell MD Service: ? Author Type: Physician Type: Progress Notes Filed: 03/09/2023 9:57 AM Note Text: ASSESSMENT/PLAN: 1. Primary open angle glaucoma (POAG) of both eyes, mild stage - ICD9: 365.11, 365.71, ICD10: H40.1131 (primary diagnosis) 2. Optic cupping of both eyes - ICD9: 377.14, ICD10: H47.233 Selected laser trabeculoplasty right eye 08/12/2021 Selected laser trabeculoplasty left eye 04/19/2021 The nature of glaucoma was discussed, with emphasis on the non-reversible damage to the optic nerve. Treatment options and the importance of regular examinations and testing were covered in detail, as well as the consequences of non-compliance. The patient was given the opportunity to ask questions. 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 3. Pseudophakia of both eyes - ICD9: V43.1, ICD10: Z96.1 -Intraocular lens in good position Both eyes/ stable 4. Essential hypertension - ICD9: 401.9, ICD10: I10 -continue care with PCP I have confirmed and edited as necessary the relevant ophthalmic history, review of systems, surgical history, and ophthalmological examination findings as obtained by the ophthalmic technical staff. I have seen and examined Rea Ybarra. I have discussed the examination findings, diagnosis, and treatment options with Rea Ybarra and/or his family. I have also reviewed and agree with the assessment and plan as stated above and agree with all its relevant components. I gave the patient the opportunity to ask questions about the findings, diagnosis, and treatment options. German Blackwell MD [facility] 03-09-2023 Instructions German Blackwell MD - 03/09/2023 9:11 AM EDT The nature of glaucoma was discussed, with emphasis on the non-reversible damage to the optic nerve. Treatment options and the importance of regular examinations and testing were covered in detail, as well as the consequences of non-compliance. The patient was given the opportunity to ask questions. If you have any questions please contact our office at [phone]. After office hours or on the weekend, please call Dr. Blackwell on his cell phone at [phone]. documented in this encounter [facility] 03-09-2023 History of Present illness Narrative ASSESSMENT/PLAN: 1. Primary open angle glaucoma (POAG) of both eyes, mild stage - ICD9: 365.11, 365.71, ICD10: H40.1131 (primary diagnosis) 2. Optic cupping of both eyes - ICD9: 377.14, ICD10: H47.233 Selected laser trabeculoplasty right eye 08/12/2021 Selected laser trabeculoplasty left eye 04/19/2021 The nature of glaucoma was discussed, with emphasis on the non-reversible damage to the optic nerve. Treatment options and the importance of regular examinations and testing were covered in detail, as well as the consequences of non-compliance. The patient was given the opportunity to ask questions. 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 3. Pseudophakia of both eyes - ICD9: V43.1, ICD10: Z96.1 -Intraocular lens in good position Both eyes/ stable 4. Essential hypertension - ICD9: 401.9, ICD10: I10 -continue care with PCP I have confirmed and edited as necessary the relevant ophthalmic history, review of systems, surgical history, and ophthalmological examination findings as obtained by the ophthalmic technical staff. I have seen and examined Rea Ybarra. I have discussed the examination findings, diagnosis, and treatment options with Rea Ybarra and/or his family. I have also reviewed and agree with the assessment and plan as stated above and agree with all its relevant components. I gave the patient the opportunity to ask questions about the findings, diagnosis, and treatment options. German Blackwell MD documented in this encounter [facility] documented as of this encounter (statuses as of 09/09/2023) [facility] History of Present illness Narrative* German Blackwell MD - 08/29/2022 8:31 AM EDT ASSESSMENT/PLAN: 1. Normal tension glaucoma of right eye, mild stage - ICD9: 365.12, 365.71, ICD10: H40.1211 (primary diagnosis) 2. Normal tension glaucoma of left eye, severe stage - ICD9: 365.12, 365.73, ICD10: H40.1223 Selected laser trabeculoplasty right eye 08/12/2021 Selected laser trabeculoplasty left eye 04/19/2021 3. Optic cupping of both eyes - ICD9: 377.14, ICD10: H47.233 Monitor 4. Visual field loss - ICD9: 368.40, ICD10: H53.40 Monitor for progression Left Eye 5. Essential hypertension - ICD9: 401.9, ICD10: I10 Continue to monitor with primary care physician. BP slightly elevated at today's exam. Recommend patient seeing Dr. De Luna for further evaluation. German Blackwell MD I have confirmed and edited as necessary the relevant ophthalmic history, review of systems, surgical history, and ophthalmological examination findings as obtained by the ophthalmic technical staff.I have seen and examined Rea Ybarra. I have discussed the examination findings, diagnosis, and treatment options with Rea Ybarra and/or his family. I have also reviewed and agree with the assessment and plan as stated above and agree with all its relevant components. I gave the patient the opportunity to ask questions about the findings, diagnosis, and treatment options. [facility]* Patient Instructions* German Blackwell MD - 04/22/2022 11:33 AM EDT If you have any questions please contact our office at [phone]. After office hours or on the weekend, please call Dr. Blackwell on his cell phone at [phone]. [facility] History of Present illness Narrative* German Blackwell MD - 04/22/2022 11:14 AM EDT ASSESSMENT/PLAN: 1. Normal tension glaucoma of right eye, mild stage - ICD9: 365.12, 365.71, ICD10: H40.1211 (primary diagnosis) 2. Normal tension glaucoma of left eye, severe stage - ICD9: 365.12, 365.73, ICD10: H40.1223 Selected laser trabeculoplasty right eye 08/12/2021 Selected laser trabeculoplasty left eye 04/19/2021 Disc hemorrhage Left Eye resolved Follow up in 4 months for dilated exam/ fundus photos 3. Optic cupping of both eyes - ICD9: 377.14, ICD10: H47.233 Monitor 4. Visual field loss - ICD9: 368.40, ICD10: H53.40 Monitor for progression Left Eye 5. Essential hypertension - ICD9: 401.9, ICD10: I10 Continue to monitor with primary care physician. BP slightly elevated at today's exam. Recommend patient seeing Dr. De Luna for further evaluation. German Blackwell MD I have confirmed and edited as necessary the relevant ophthalmic history, review of systems, surgical history, and ophthalmological examination findings as obtained by the ophthalmic technical staff.I have seen and examined Rea Ybarra. I have discussed the examination findings, diagnosis, and treatment options with Rea Ybarra and/or his family. I have also reviewed and agree with the assessment and plan as stated above and agree with all its relevant components. I gave the patient the opportunity to ask questions about the findings, diagnosis, and treatment options. [facility] History of Past illness Narrative* Problem Noted Date Resolved Date Optic disc hemorrhage, right 01/28/202102/2021 Glaucoma suspect of both eyes 12/14/2020 Optic disc hemorrhage, left 12/14/2020 1002/2021 Dry eye 09/11/2015 09/11/2016 Pseudophakia, both eyes 11/22/2014 09/11/20 16 documented as of this encounter (statuses as of 04/22/2022) [facility] History of Past illness Narrative* Problem Noted Date Resolved Date Normal tension glaucoma of both eyes, mild stage 01/28/2021 08/29/2022 Optic disc hemorrhage, right 01/28/202102/2021 Glaucoma suspect of both eyes 12/14/2020 Optic disc hemorrhage, left 12/14/20200 02/2021 Dry eye 09/11/2015 09/11/2016 Pseudophakia, both eyes 11/22/2014 09/11/20 16 documented as of this encounter (statuses as of 08/29/2022) [facility] History of Past illness Narrative* Problem Noted Date Resolved Date Normal tension glaucoma of both eyes, mild stage 01/28/2021 08/29/2022 Optic disc hemorrhage, right 01/28/202102/2021 Glaucoma suspect of both eyes 12/14/2020 Optic disc hemorrhage, left 12/14/202002/2021 Dry eye 09/11/2015 09/11/2016 Pseudophakia, both eyes 11/22/2014 09/11/20 16 documented as of this encounter (statuses as of 03/09/2023) [facility] Normal tension glaucoma of right eye, 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, 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 Essential hypertension Unspecified essential hypertension [facility] Diagnosis Normal tension glaucoma of right eye, 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, 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, unspecified Essential hypertension Unspecified essential hypertension [facility] Diagnosis Primary open angle glaucoma (POAG) of both eyes, moderate stage- Primary 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, unspecified Hx of LASIK Other states following surgery of eye and adnexa Pseudophakia of both eyes Lens replaced by other means Essential hypertension Unspecified essential hypertension [facility] Diagnosis Primary open angle glaucoma (POAG) of both eyes, moderate stage- Primary 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, unspecified Essential hypertension Unspecified essential hypertension documented in this encounter [facility] Summary Purpose Family History No Family History Records FoundNo Family History Records FoundNo Family History Records FoundNo Family History Records FoundNo Family History Records FoundNo Family History Records Found Advance Directives No Advanced Directives Records FoundNo Advanced Directives Records FoundNo Advanced Directives Records FoundNo Advanced Directives Records FoundNo Advanced Directives Records FoundNo Advanced Directives Records Found Medications Administered Section Active Administered Medications - up to 3 most recent administrations Medication Order MAR Action Action Date Dose Rate Site PHENYLephrine 2.5 % 1 Drop (AK-DILATE, ROSEMARY-SYNEPHRINE) 1 Drop, BOTH EYES, DIRECTED, Starting on Thu08/29/22 at 0900, Until Thu08/29/22 at 2028, Administer for dilation PROTECT FROM LIGHT Given 08/29/2022 9:00 AM EDT 1 Drop proparacaine 0.5 % 1 Drop (ALCAINE) 1 Drop, BOTH EYES, DIRECTED, Starting on Thu08/29/22 at 0900, Until Thu08/29/22 at 2028, Administer for pneumo tonometry, tonopen tonometry, or pachymetry. In the event of a proparacaine shortage, administer tetracaine 0.5% ophthalmic drops 1 drop in the left eye as directed for pneumo tonometry, tonopen tonometry, or pachymetry Given 08/29/2022 9:00 AM EDT 1 Drop tropicamide 1 % 1 Drop (MYDRIACYL) 1 Drop, BOTH EYES, DIRECTED, Starting on Thu08/29/22 at 0900, Until Thu08/29/22 at 2028, Administer for dilation Given 08/29/2022 9:00 AM EDT 1 Drop Active Administered Medications - up to 3 most recent administrations Medication Order MAR Action Action Date Dose Rate Site PHENYLephrine 2.5 % 1 Drop (AK-DILATE, ROSEMARY-SYNEPHRINE) 1 Drop, BOTH EYES, DIRECTED, Starting on Thu03/09/23 at 0930, Until Thu03/09/23 at 2128, Administer for dilation PROTECT FROM LIGHT Given 03/09/2023 9:30 AM EDT 1 Drop proparacaine 0.5 % 1 Drop (ALCAINE) 1 Drop, BOTH EYES, DIRECTED, Starting on Thu03/09/23 at 0930, Until Thu03/09/23 at 2128, Administer for pneumo tonometry, tonopen tonometry, or pachymetry. In the event of a proparacaine shortage, administer tetracaine 0.5% ophthalmic drops 1 drop in the left eye as directed for pneumo tonometry, tonopen tonometry, or pachymetry Given 03/09/2023 9:30 AM EDT 1 Drop tropicamide 1 % 1 Drop (MYDRIACYL) 1 Drop, BOTH EYES, DIRECTED, Starting on Thu03/09/23 at 0930, Until Thu03/09/23 at 2128, Administer for dilation Given 03/09/2023 9:30 AM EDT 1 Drop Active Administered Medications - up to 3 most recent administrations Medication Order MAR Action Action Date Dose Rate Site PHENYLephrine 2.5 % 1 Drop (AK-DILATE, ROSEMARY-SYNEPHRINE) 1 Drop, BOTH EYES, DIRECTED, Starting on Thu09/09/23 at 0930, Until Thu09/09/23 at 2128, Administer for dilation PROTECT FROM LIGHT Given 09/09/2023 9:30 AM EDT 1 Drop proparacaine 0.5 % 1 Drop (ALCAINE) 1 Drop, BOTH EYES, DIRECTED, Starting on Thu09/09/23 at 0930, Until Thu09/09/23 at 2128, Administer for pneumo tonometry, tonopen tonometry, or pachymetry. In the event of a proparacaine shortage, administer tetracaine 0.5% ophthalmic drops 1 drop in the left eye as directed for pneumo tonometry, tonopen tonometry, or pachymetry Given 09/09/2023 9:30 AM EDT 1 Drop tropicamide 1 % 1 Drop (MYDRIACYL) 1 Drop, BOTH EYES, DIRECTED, Starting on Thu09/09/23 at 0930, Until Thu09/09/23 at 2128, Administer for dilation Given 09/09/2023 9:30 AM EDT 1 Drop Additional Source Comments (unrecognized sect ion and content) No Status Records FoundNo Status Records FoundNo Status Records FoundNo Status Records FoundNo Status Records FoundNo Status Records Found INFORMATION SOURCE (unrecogn ized section and content) DATE CREATED AUTHOR AUTHOR'S ORGANIZ ATION 12/28/2018 [facility] DATE CREATED AUTHOR AUTHOR'S ORGANIZ ATION 11/20/2019 [facility] DATE CREATED AUTHOR AUTHOR'S ORGANIZ ATION 12/14/2019 [facility] DATE CREATED AUTHOR AUTHOR'S ORGANIZ ATION 09/14/2022 [facility] DATE CREATED AUTHOR AUTHOR'S ORGANIZ ATION 09/10/2023 [facility] Source Comments (unrecognize d section and content) In the event this informatio n is protected by the Federal Confidentiality of Alcohol and Drug Abuse Patient Records regulations: The Federal rules restrict any use of the information to criminally investigate or prosecute any alcohol or drug abuse patient.[facility] Campus[facility] the event this information is protected by the Federal Confidentiality of Alcohol and Drug Abuse Patient Records regulations: The Federal rules restrict any use of the information to criminally investigate or prosecute any alcohol or drug abuse patient.[facility] Campus[facility] the event this information is protected by the Federal Confidentiality of Alcohol and Drug Abuse Patient Records regulations: The Federal rules restrict any use of the information to criminally investigate or prosecute any alcohol or drug abuse patient.[facility] Campus[facility] the event this information is protected by the Federal Confidentiality of Alcohol and Drug Abuse Patient Records regulations: The Federal rules restrict any use of the information to criminally investigate or prosecute any alcohol or drug abuse patient.[facility] Reason for Visit (unrecogniz ed section and content) Reason Comments Normal Tension Glaucoma Follow Up Reason Comments Glaucoma Follow Up Both eyes Pseudophakia Both eyes Reason Comments Primary Open Angle Glaucoma Follow Up Blurred Vision Left Eye Part of vision, intermittent Foreign Body Sensation Left eye, tempora l corner, intermittent Care Teams (unrecognized sec tion and content) Registered Safety Engineer Relationship Specialty Start Date End Date Ina De Luna PCP - General Family Medicine 07/21/12 Registered Safety Engineer Relationship Specialty Start Date End Date Ina De Luna PCP - General Family Medicine 07/21/12 Registered Safety Engineer Relationship Specialty Start Date End Date Ina De Luna MD PCP - General Family Medicine 07/21/12 [facility] [address] [id number] Optometry 09/09/23 FOR RECORDS PERTAINING TO PATIENTS WHO ARE OR HAVE BEEN ENROLLED IN A CHEMICAL DEPENDENCY/SUBSTANCEABUSE PROGRAM, SOME INFORMATION MAY BE OMITTED. This clinical summary was aggregated from multiple sources. Caution should be exercised in using it in the provision of clinical care. This summary normalizes information from multiple sources, and as a consequence, information in this document may materially change the coding, format and clinical context of patient data. In addition, data may be omitted in some cases. CLINICAL DECISIONS SHOULD BE BASED ON THE PRIMARY CLINICAL RECORDS. [facility]. provides no warranty or guarantee of the accuracy or completeness of information in this document.
== END 2023-11-06 17:14 | disposition home or self-care (01) | DRG 988 ==
LOC: MS3 11-05 08:51 → SDC 11-05 11:41 → MS3 11-06 16:58
PROVIDERS: Admitting Provider Urology; PCP Family Medicine; Referring Provider Urology; Visit Provider Urology
PROC: 0VT04ZZ Resection of Prostate, Percutaneous Endoscopic Approach (ICD-10-PCS; CPT 55867; principal; 2023-11-04 12:25)
DX: N99.820 Postprocedural hemorrhage of a genitourinary system organ or structure following a genitourinary system procedure (principal); N13.8 Other obstructive and reflux uropathy; I10 Essential (primary) hypertension; E78.00 Pure hypercholesterolemia, unspecified; N40.1 Benign prostatic hyperplasia with lower urinary tract symptoms; R33.8 Other retention of urine; Z79.899 Other long term (current) drug therapy
CPT/HCPCS: 36415; 80048; 82962; 85027; 88305; 88307; 94668; J7030; J7120; A4216; J0744; J2405

== ENCOUNTER 2023-11-18 07:41 | Emergency (ER) | payer MEDICARE, OTHER, SELFPAY ==
[2023-11-18 07:41] VITALS: BP 204/102; PULSE 81; RESP 18; TEMP 35.5; O2SAT 97; BMI 35.2
--- NOTE | 2023-11-18 08:00 | EDS_ITS ---
HPI History of Present Illness Chief Complaint: Complaint Detail of Chief Complaint: Urinary retention Informant: patient Narrative Narrative: Patient presents to the emergency department with complaint of inability to void. Patient states that he had robotic prostate surgery on November 04 and had a Urena catheter in place until yesterday. The catheter was removed yesterday and patient has been unable to void since that time. Patient denies fever or chills. Denies other complaints. [facility] Medical History (Updated 11/18/23 @ 09:[address] Matthias Smith DO) Failed total knee, left High cholesterol Hypertension Prostate disease Wears dentures Wears glasses Wears hearing aid Home Medications atenolol 25 mg tablet 25 mg PO DAILY 10/09/23 [History Last Taken 11/04/23] atorvastatin 10 mg tablet 10 mg PO DAILY 10/09/23 [History Last Taken 11/03/23] tamsulosin 0.4 mg capsule (Flomax) 0.4 mg PO DAILY #30 caps 10/09/23 [Rx Last Taken 11/03/23] amlodipine 5 mg tablet 5 mg PO DAILY 10/22/23 [History Last Taken 11/04/23] ciprofloxacin HCl 500 mg tablet (Cipro) 500 mg PO BID #14 tabs 11/04/23 [Rx Last Taken Unknown] oxycodone 5 mg tablet 5 mg PO Q6H PRN pain 7 days #14 tabs 11/04/23 [Rx Last Taken Unknown] cephalexin 500 mg capsule 500 mg PO Q6 #28 CAPSULES 11/18/23 [Rx Last Taken Unknown] Allergy/AdvReac Type Severity Reaction Status Date / Time bee venom protein (honey bee) Allergy Mild Upset Verified 11/18/23 07:52 Stomach Surgical History History of cholecystectomy History of colonoscopy History of total left knee replacement (TKR) Social History Smoking Status: Never smoker ROS ROS ED Review of Systems ROS Unobtainable: other Constitutional Constitutional ED: Reports lethargy; Denies chills, fever(s), sweats or weight loss Eyes Eyes: Denies blurry vision, change in vision or diplopia ENT ENT ED: Denies rhinorrhea or sore throat Cardiovascular Cardiovascular: Denies chest pain, orthopnea or racing heartbeat Respiratory/Chest Respiratory/Chest: Denies cough, dyspnea, dyspnea on exertion, orthopnea or sputum Gastrointestinal Gastrointestinal: Reports abdominal pain; Denies diarrhea, nausea or vomiting Genitourinary Genitourinary ED: Reports other Details: Urinary retention ; Denies dysuria, hematuria or urinary frequency Musculoskeletal Musculoskeletal: Denies arthralgias, back pain, myalgias or neck pain Integumentary Denies abscess, Abrasions or rash Neurologic Neurologic: Denies headache(s) or weakness Psychiatric Psychiatric: Denies anxiety, depression or suicidal thoughts Endocrine Endocrinology: Denies polydipsia, polyphagia or polyuria Hematologic/Lymphatic Hematologic/Lymphatic: Denies easy bleeding, easy bruising or lymphadenopathy Allergic/Immunologic Allergic/Immunologic ED: Denies mouth swelling, tongue swelling or urticaria EXAM Physical Exam Const Vital Signs: 11/18/23 07:41 Temperature 96 F L Temperature Source Temporal Pulse Rate 81 Respiratory Rate 18 Blood Pressure 204/102 H Blood Pressure Mean 136 Pulse Ox 97 Oxygen Delivery Method Room Air Positive well nourished and well developed General Appearance ED: well developed and NAD HEENT Reports TM's clear and moist mucous membranes normocephalic and atraumatic; Negative for trauma or tenderness Tympanic Membrane ED: Yes TM's clear Eyes PERRL and EOMs intact bilaterally General Eye ED: Negative for pale conjunctiva or scleral icterus Neck no lymphadenopathy, supple and no JVD General: Negative for tenderness Chest Wall inspection of chest normal and palpation of chest normal Chest: Negative for tenderness Resp normal respiratory effort and clear to auscultation bilaterally Effort and Inspection: Negative for respiratory distress or pain with movement Auscultation: Negative for rhonchi, wheezes or diminished lung sounds Cardio regular rate, regular rhythm, S1 normal heart sound, S2 normal heart sound and no murmurs Peripheral Pulses: pulses 2+ throughout GI normal to inspection, nondistended, normoactive bowel sounds, soft to palpation, non-distended and no masses GI Narrative: Mild fullness suprapubic region with diffuse tenderness to palpation. There is no rebound, rigidity, or pineal signs. No mass palpated. Back/Spine no CVA tenderness and no thoracic nor lumbar tenderness Extremity normal to inspection General Extremety ED: Negative for edema General Extremity: Negative for edema Neuro oriented x3, CN's II-XII intact bilaterally, no sensory deficits noted and gait normal Sensorium / Orientation: awake, alert, oriented to person, oriented to place and oriented to time Motor Exam: strength 5/5 throughout and strength abnormal Psych mental status grossly normal Skin no rashes or lesions noted and no wounds MDM MDM MDM Narrative Medical decision making narrative: Patient presents with urinary retention after prostate surgery and having his catheter removed yesterday. Patient had a Urena catheter placed and approximately a liter of fluid/urine was obtained. Patient had a urinalysis performed which showed 50-100 RBCs and 5-10 WBCs as well as +1 bacteria. I did send off a culture. Will attempt to contact patient's urologist to arrange close follow-up to attempt to remove catheter again. Will apparently start pat ient on Keflex. Lab Data Labs: Laboratory Results - last 24 hr 11/18/23 08:40 Urine Color Yellow Urine Clarity Sl Cldy Urine pH 5.0 Ur Specific [place] 1.015 Urine Protein 100 H Urine Glucose (UA) Normal Urine Ketones Negative Urine Occult Blood 250 H Urine Nitrite Negative Urine Bilirubin Negative Urine Urobilinogen Normal Ur Leukocyte Esterase 25 H Urine RBC 50-100 SEEN Urine WBC 5-10 SEEN Ur Squamous Epith Cells 0 SEEN Urine Bacteria 1+ Urine Mucus 0 SEEN Discharge Plan Triage Chief Complaint: Complaint ED Provider: Matthias Smith Dx/Rx/DC Orders Clinical Impression: Acute urinary retention Instructions: ED Urinary Retention, Male Prescriptions: New cephalexin [cephalexin] 500 mg capsule 500 mg PO Q6 Qty: 28 0RF No Action amlodipine 5 mg tablet 5 mg PO DAILY Patient Comments: TAKE 1 TABLET BY MOUTH EVERY DAY ciprofloxacin HCl [Cipro] 500 mg tablet 500 mg PO BID Qty: 14 0RF oxycodone 5 mg tablet 5 mg PO Q6H PRN (Reason: pain) 7 Days Qty: 14 0RF atenolol 25 mg tablet 25 mg PO DAILY Patient Comments: TAKE 1 TABLET BY MOUTH EVERY DAY atorvastatin 10 mg tablet 10 mg PO DAILY Patient Comments: TAKE 1 TABLET BY MOUTH EVERY DAY tamsulosin [Flomax] 0.4 mg capsule 0.4 mg PO DAILY Qty: 30 0RF Primary Care Provider: Yamileth Garcia Referrals: Yamileth Garcia MD [Primary Care Provider] - Danial Suárez MD [Med Staff - Active Staff] - 3-5 Days Disposition Disposition: Home, Self Care Discharge Date/Time: 11/18/23 10:12
[2023-11-18 08:49] LABS: Mucous, Urine 0 SEEN /hpf (<or=2+); Squamous Epithelial Cells - UA 0 SEEN /hpf (0-5)
[2023-11-18 09:12] LABS: Glucose, Dipstick Normal (Normal); Ketone-Dipstick Negative (Negative); Leukocyte Esterase-Dipstick 25 /ul (Negative); Nitrite-Dipstick Negative (Negative); Occult Blood-Urine 250 /ul (Negative); Protein-Dipstick 100 mg/dl (Negative); Specific Gravity, Urine 1.015 (1.002-1.030); Urine Bilirubin Dipstick Negative (Negative); Urine Urobilinogen Normal (Normal)
[2023-11-18 09:18] LABS: Color, Urine Yellow (Yellow); Urine Clarity Sl Cldy (Clear)
[2023-11-18 09:21] LABS: Red Blood Cells-Urine 50-100 SEEN /hpf (0-5)
[2023-11-18 09:22] LABS: Bacteria 1+ /hpf (None Seen); White Blood Cells 5-10 SEEN /hpf (0-5)
== END 2023-11-18 10:12 | disposition home or self-care (01) ==
PROVIDERS: Emergency Provider Emergency Medicine; PCP Family Medicine; Visit Provider Emergency Medicine
DX: R33.9 Retention of urine, unspecified (principal)
CPT/HCPCS: 51702; 81001; 87086; 99283

== ENCOUNTER 2023-12-07 20:48 | Emergency (ER) | payer MEDICARE, OTHER, SELFPAY ==
[2023-12-07 20:49] VITALS: BP 160/91; PULSE 117; RESP 18; TEMP 36.6; O2SAT 99; BMI 35.6
--- OUTSIDE RECORDS SUMMARY | 2023-12-07 22:15 | XMS RPT_ITS | CCD ---
Author Name Unknown Address [address] [place] [address] Organization [facility] Care Team Providers Care Volunteer Services Assistant Name Role Phone Ming Levy Attending Unavailable Ina De Luna Primary Care Unavailable Ina De Luna Primary Care Unavailable Gregory Schafer Admitting Unavailable Gregory Schafer Attending Unavailable Garcia Pereira Consulting Unavailable eDyvi Bowling Admitting Unavailable Deyvi Bowling Attending Unavailable [...] [BEE STING] Allergy to substance 11-22-2014 Vomiting [facility] Medications Current Medications Medication Drug Class(es) Dates [...] 96 mm[Hg] German Blackwell MD Work Phone: [facility] 04-22-2022 11:18-0400 Heart rate 89 /min German Blackwell MD Work Phone: [facility] 04-22-2022 11:18-0400 Systolic blood pressure 124 mm[Hg] German Blackwell MD Work Phone: [facility] Encounters Encounter Date Encounter Type Care Provider Facility Start: 09-09-2023 End: 09-09-2023 ambulatory GERMAN BLACKWELL Facility:[facility] Start: 09-09-2023 End: 09-09-2023 Patient [...] Vaccine ( season) Covid-19 Vaccine ( season) [facility] Start: 11-09-2022 ADVANCE DIRECTIVE DISCUSSION ADVANCE DIRECTIVE DISCUSSION [facility] Start: 11-09-2022 DEPRESSION ASSESSMENT DEPRESSION ASS ESSMENT [facility] Start: 07-10-2022 Influenza vaccination INFLUENZA (#1) [facility] Start: 02-08-2022 COVID-19 VACCINE (4 - Booster for Moderna series) COVID-19 VACCINE (4 - Booster for Moderna series) [facility] Start: 12-05-2021 COVID-19 VACCINE (4 - Booster for Moderna series) COVID-19 VACCINE (4 - Booster for Moderna series) [facility] Start: 11-09-2021 ADVANCE DIRECTIVE DISCUSSION ADVANCE DIRECTIVE DISCUSSION [facility] Start: 11-09-2021 DEPRESSION ASSESSMENT DEPRESSION ASS ESSMENT [facility] Start: 09-30-2018 Pneumococcal Vaccine : 65+ (2 - PCV) Pneumococcal Vaccine: 65+ (2 - PCV) [facility] Start: 2007 PNEUMOCOCCAL: 65+ (1 - PCV) PNEUMOCOCCAL: 65+ (1 - PCV) [facility] Start: 2002 RSV Vaccine (1 - 1-d ose 60+ series) RSV Vaccine (1 - 1-dose 60+ series) [facility] Start: 1992 SHINGRIX VACCINE (1 of 2) SHINGRIX V ACCINE (1 of 2) [facility] Start: 1987 [facility]EN [facility] Start: 1987 Diabetes Screening Diabetes Screenin g [facility] Start: 1961 Urine microalbumin profile [facility] Start: 1960 ANNUAL PCP TEAM HEALTH INSURANCE AGENT ELISA DISEASE VISIT ANNUAL PCP TEAM CHRONIC DISEASE VISIT [facility] Start: 1960 BP CONTROLLED (<130/80) BP CONTROLLE D (<130/80) [facility] Start: 1954 Adult depression screening assessment DEPRESSION SCREENING [facility] Payers Date Payer Category Payer Unknown 2016 Medicare [employer]IA MOS[employer] SUPPLEMENT [id number] 2016-Present [phone] [place], [place] [address] [address] Medicare [id number] 2007 Medicare [id number] 2007 Medicare 2007 Medicare MEDICARE MEDICAR E A AND B [id number] 2007-Present [phone] [address] [address] [place] [address] Medicare [id number] 1942 Unknown [id number] 1942 Unknown [id number] 1942 Unknown [id number] 1942 Unknown [id number] 1942 Unknown [id number] 1942 Unknown [id number] 1942 Unknown [id number] Medicare [id number] Unknown [id number] Social History Date Type Detail Facility Start: 11-22-2014 End: 11-04-2018 Tobacco smoking status MOIS Never smoked tobacco [facility] Start: 11-22-2014 End: 11-04-2018 Tobacco use and exposure Smokeless tobacco non-user [facility] Start: 04-22-2022 End: 09-09-2023 Alcohol intake Ex-drinker (finding) [facility] Start: 1940 Sex Assigned At Not on file [facility] Start: 04-12-2022 End: 08-29-2022 Exposure to SARS-CoV-2 (event) Not sure [facility] Start: 09-09-2023 History of Social function [facility] Start: 09-09-2023 Tobacco use panel [facility] National Score (1-10 0), lower number is lower risk 59 [facility] Clinical Notes 03-22-2021 to 09-09-2023 Patient InstructionsGerman Blacwkell MD - 09/09/2023 9:43 AM EDTPatient InstructionsMojevon Blackwell MD - 03/09/2023 9:10 AM EDT Note Date & Type Note Facility 09-09-2023 Note HNO ID: [id number] Author: German Blackwell MD Service: ? Author [...] diagnosis, and treatment options. German Blackwell MD [facility] 09-09-2023 Instructions German Blackwell MD - 09/09/2023 10:30 AM EDT If you have any questions please contact our office at [phone]. After office hours or on the weekend, please call Dr. Blackwell on his cell phone at [phone]. documented in this encounter [facility] 09-09-2023 History of Present illness Narrative ASSESSMENT/PLAN: [...] German Blackwell MD documented in this encounter [facility] 03-09-2023 Note HNO ID: [id number] Author: German Blackwell MD Service: ? Author [...] diagnosis, and treatment options. German Blackwell MD [facility] 03-09-2023 Instructions German Blackwell MD - 03/09/2023 [...] any questions please contact our office at [phone]. After office hours or on the weekend, please call Dr. Blackwell on his cell phone at [phone]. documented in this encounter [facility] 03-09-2023 History of Present illness Narrative ASSESSMENT/PLAN: [...] German Blackwell MD documented in this encounter [facility] documented as of this encounter (statuses as of 09/09/2023) [facility]10-21-2022 History of Present illness Narrative* German Blackwell [...] diagnosis, and treatment options. [facility] Instructions* Patient Instructions* German Blackwell MD - 04/22/2022 11:33 AM EDT If you have any questions please contact our office at [phone]. After office hours or on the weekend, please call Dr. Blackwell on his cell phone at [phone]. [facility] History of Present illness Narrative* German Blackwell [...] diagnosis, and treatment options. [facility] History of Past illness Narrative* Problem Noted Date Resolved Date Optic disc hemorrhage, right 01/28/202102/2021 Glaucoma suspect of both eyes 12/14/2020 Optic disc hemorrhage, left 12/14/2020 1002/2021 Dry eye 09/11/2015 09/11/2016 Pseudophakia, both eyes 11/22/2014 09/11/20 16 documented as of this encounter (statuses as of 04/22/2022) [facility] History of Past illness Narrative* Problem Noted Date Resolved Date Normal tension glaucoma of both eyes, mild stage 01/28/2021 08/29/2022 Optic disc hemorrhage, right 01/28/202102/2021 Glaucoma suspect of both eyes 12/14/2020 Optic disc hemorrhage, left 12/14/20200 02/2021 Dry eye 09/11/2015 09/11/2016 Pseudophakia, both eyes 11/22/2014 09/11/20 16 documented as of this encounter (statuses as of 08/29/2022) [facility] History of Past illness Narrative* Problem Noted Date Resolved Date Normal tension glaucoma of both eyes, mild stage 01/28/2021 08/29/2022 Optic disc hemorrhage, right 01/28/202102/2021 Glaucoma suspect of both eyes 12/14/2020 Optic disc hemorrhage, left 12/14/202002/2021 Dry eye 09/11/2015 09/11/2016 Pseudophakia, both eyes 11/22/2014 09/11/20 16 documented as of this encounter (statuses as of 03/09/2023) [facility] Diagnosis Normal tension glaucoma of right eye, 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, 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 Essential hypertension Unspecified essential hypertension [facility] Diagnosis Normal tension glaucoma of right eye, 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, 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, unspecified Essential hypertension Unspecified essential hypertension [facility] Diagnosis Primary open angle glaucoma (POAG) of both eyes, moderate stage- Primary 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, unspecified Hx of LASIK Other states following surgery of eye and adnexa Pseudophakia of both eyes Lens replaced by other means Essential hypertension Unspecified essential hypertension [facility] Diagnosis Primary open angle glaucoma (POAG) of both eyes, moderate stage- Primary 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, unspecified Essential hypertension Unspecified essential hypertension documented in this encounter [facility] Summary Purpose Family History No Family History [...] DATE CREATED AUTHOR AUTHOR'S ORGANIZ ATION 12/28/2018 [facility] DATE CREATED AUTHOR AUTHOR'S ORGANIZ ATION 11/20/2019 [facility] DATE CREATED AUTHOR AUTHOR'S ORGANIZ ATION 12/14/2019 [facility] DATE CREATED AUTHOR AUTHOR'S ORGANIZ ATION 09/14/2022 [facility] DATE CREATED AUTHOR AUTHOR'S ORGANIZ ATION 09/10/2023 [facility] Source Comments (unrecognize d section and content) In the event this informatio n is protected by the Federal Confidentiality of Alcohol and Drug Abuse Patient Records regulations: The Federal rules restrict any use of the information to criminally investigate or prosecute any alcohol or drug abuse patient.[facility] the event this information is protected by the Federal Confidentiality of Alcohol and Drug Abuse Patient Records regulations: The Federal rules restrict any use of the information to criminally investigate or prosecute any alcohol or drug abuse patient.[facility] Hospital[facility] the event this information is protected by the Federal Confidentiality of Alcohol and Drug Abuse Patient Records regulations: The Federal rules restrict any use of the information to criminally investigate or prosecute any alcohol or drug abuse patient.[facility] Hospital[facility] the event this information is protected by the Federal Confidentiality of Alcohol and Drug Abuse Patient Records regulations: The Federal rules restrict any use of the information to criminally investigate or prosecute any alcohol or drug abuse patient.[facility] Reason for Visit (unrecogniz ed section and content) Reason Comments Normal Tension Glaucoma Follow Up Reason Comments Glaucoma Follow Up Both eyes Pseudophakia Both eyes Reason Comments Primary Open Angle Glaucoma Follow Up Blurred Vision Left Eye Part of vision, intermittent Foreign Body Sensation Left eye, tempora l corner, intermittent Care Teams (unrecognized sec tion and content) Volunteer Services Assistant Relationship Specialty Start Date End Date Ina De Luna PCP - General Family Medicine 07/21/12 Volunteer Services Assistant Relationship Specialty Start Date End Date Ina De Luna PCP - General Family Medicine 07/21/12 Volunteer Services Assistant Relationship Specialty Start Date End Date Ina De Luna MD PCP - General Family Medicine 07/21/12 [facility] [address] [address] Optometry 09/09/23 FOR RECORDS PERTAINING [...] BE BASED ON THE PRIMARY CLINICAL RECORDS. [facility]. provides no warranty or guarantee of the accuracy or completeness of information in this document.
--- NOTE | 2023-12-07 22:29 | EX.ED.GUMALE ---
HPI History of Present Illness Chief Complaint: Male Pain/Injury Informant: patient Narrative Narrative: Patient is an 83-year-old male with history of BPH, urinary retention with laparoscopic assisted robotic prostatectomy with Dr. Suárez performed on 11/04/2023. Postop course was complicated by bleeding which was stabilized and he was discharged home 2 days later. Urena catheter was in place. Patient was subsequently seen in our ER on 11/18 for urinary retention and a Urena catheter had to be replaced.He was placed on Keflex at that time, however urine culture actually showed no growth. Patient states he woke up today with red testicular pain and swelling. He never had this before. He notes he has been urinating well and while he does have some hesitancy he denies any dysuria or hematuria. He feels like he is adequately emptying his bladder. Patient states he developed a fever today of 101.7 around 730 this evening. He had Tylenol at 4 PM (500 mg). Notes has been getting chills intermittently for the past month has not had any fevers. He is also having some intermittent myalgias. Denies any nausea, vomiting, change in bowel habits or any URI/flu symptoms. No other complaints or concerns at this time. [facility] Medical History Failed total knee, left High cholesterol Hypertension Prostate disease Wears dentures Wears glasses Wears hearing aid Home Medications atenolol 25 mg tablet 25 mg PO DAILY 10/09/23 [History Last Taken 11/04/23] atorvastatin 10 mg tablet 10 mg PO DAILY 10/09/23 [History Last Taken 11/03/23] tamsulosin 0.4 mg capsule (Flomax) 0.4 mg PO DAILY #30 caps 10/09/23 [Rx Last Taken 11/03/23] amlodipine 5 mg tablet 5 mg PO DAILY 10/22/23 [History Last Taken 11/04/23] ciprofloxacin HCl 500 mg tablet (Cipro) 500 mg PO BID #14 tabs 11/04/23 [Rx Last Taken Unknown] oxycodone 5 mg tablet 5 mg PO Q6H PRN pain 7 days #14 tabs 11/04/23 [Rx Last Taken Unknown] cephalexin 500 mg capsule 500 mg PO Q6 #28 CAPSULES 11/18/23 [Rx Last Taken Unknown] sulfamethoxazole 800 mg-trimethoprim 160 mg tablet (Bactrim DS) 1 tab PO BID 10 days #20 tabs 12/08/23 [Rx Last Taken Unknown] Allergy/AdvReac Type Severity Reaction Status Date / Time bee venom protein (honey bee) Allergy Mild Upset Verified 12/07/23 20:48 Stomach Surgical History History of cholecystectomy History of colonoscopy History of total left knee replacement (TKR) Social History Smoking Status: Never smoker ROS ROS ED Constitutional Constitutional ED: Reports chills and fever(s) ENT ENT ED: Denies rhinorrhea or sore throat Cardiovascular Cardiovascular: Denies chest pain Respiratory/Chest Respiratory/Chest: Denies cough or dyspnea Gastrointestinal Gastrointestinal: Reports abdominal pain; Denies diarrhea, nausea or vomiting Genitourinary Genitourinary ED: Reports other Details: Mild hesitancy, improving. Positive right testicular pain, swelling and redness ; Denies dysuria, hematuria or urinary frequency Musculoskeletal Musculoskeletal: Reports myalgias; Denies arthralgias Integumentary Denies rash Neurologic Neurologic: Denies headache(s) or weakness Psychiatric Psychiatric: Denies anxiety Hematologic/Lymphatic Hematologic/Lymphatic: Denies easy bleeding or easy bruising EXAM Physical Exam Const Vital Signs: 12/07/23 20:49 12/07/23 22:40 12/08/23 00:17 Temperature 97.9 F 102.9 F H 100.6 F H Temperature Source Temporal Oral Oral Pulse Rate 117 H 109 H Respiratory Rate 18 18 Blood Pressure 160/91 H 134/79 H Blood Pressure Mean 114 97 Pulse Ox 99 93 Oxygen Delivery Method Room Air Positive well nourished and well developed General Appearance ED: well developed and NAD HEENT Reports moist mucous membranes Eyes PERRL Neck supple Resp normal respiratory effort and clear to auscultation bilaterally Cardio regular rhythm and no murmurs Rate: tachycardic GI Inspection: Negative for abdominal distention Auscultation: normoactive bowel sounds Palpation: soft and tender RLQ and McBurney's point; Negative for guarding Narrative: Patient has asymmetric swelling of the right testicle. Is diffusely tender. Normal lie. Testicle itself is enlarged feeling and more firm. There is no abscess or drainage appreciated. Mild tenderness palpation along the right inguinal area/groin. Mild erythema noted to the right testicle. Groin / Perineum Exam: Negative for edema or lesions Extremity normal to inspection Neuro oriented x3 and moves all extremities Sensorium / Orientation: alert Psych mental status grossly normal Skin Skin Narrative: Healing abrasion to the proximal right thigh which patient states was from the Urena catheter. Healing surgical incisions to the abdomen from recent laparoscopic surgery. Mild erythema of the scrotum more pronounced on the right without a well-demarcated transition. MDM MDM MDM Narrative Medical decision making narrative: Patient evaluated for fever and right testicular pain and swelling. He is tachycardic on arrival. Will obtain a lactate in addition to blood work and ultrasound of the testicle. Patient declined any medication for pain at this time. Differential includes testicular abscess, epididymitis and less likely torsion. More concern for infectious etiology. Patient does not have leukocytosis. Mild anemia with hemoglobin 12.7 which appears stable. Creatinine is at baseline 1.61. Lactate is normal. While he meet SIRS criteria with likely epididymoorchitis/UTI as a cause of his symptoms he does not meet criteria for severe sepsis or septic shock. I am overall he is well-appearing is only had symptoms for a day as I feel like he can be treated on outpatient basis. Will follow-up with urology. Started on Bactrim which should cover for urinary tract infection as well as epididymitis. Patient agreeable this plan of care. Is given return precautions. Discharged home in stable condition. Counseled alternate ibuprofen and Tylenol as needed for fever control. Patient does not feel like he needs anything stronger for pain at time of discharge. History & Record Review Additional record(s) reviewed:: Prior inpatient record (see HPI) Lab Data Attestation: I reviewed the patient's lab results. Labs: Laboratory Results - last 24 hr 12/07/23 12/08/23 22:40 00:05 WBC 10.7 RBC 4.33 L Hgb 12.7 L Hct 39.0 L MCV 90.1 MCH 29.3 MCHC 32.6 RDW Std Deviation 41.8 RDW Coeff of Herminio 12.5 Plt Count 212 MPV 8.6 Immature Gran % (Auto) 0.500 Neut % (Auto) 79.2 H Lymph % (Auto) 8.7 L [place] % (Auto) 8.6 Eos % (Auto) 2.5 Baso % (Auto) 0.5 Absolute Neuts (auto) 8.5 H Absolute Lymphs (auto) 0.93 Nucleated RBC % 0 Sodium 137 Potassium 3.8 Chloride 107 Carbon Dioxide 24.0 Anion Gap 6 BUN 21 H Creatinine 1.61 H Estim Creat Clear Calc 42.55 Est GFR (MDRD) Af Amer 53 L Est GFR (MDRD) Non-Af 44 L BUN/Creatinine Ratio 13.0 Glucose 149 H Lactic Acid 1.0 Calcium 9.0 Total Bilirubin 0.90 AST 26 ALT 37 Alkaline Phosphatase 138 H Total Protein 6.5 Albumin 3.0 L Globulin 3.5 Albumin/Globulin Ratio 0.9 Urine Color Yellow Urine Clarity Cloudy Urine pH 6.0 Ur Specific Arabi 1.020 Urine Protein 100 H Urine Glucose (UA) Normal Urine Ketones 5 H Urine Occult Blood 250 H Urine Nitrite Positive H Urine Bilirubin Negative Urine Urobilinogen Normal Ur Leukocyte Esterase 500 H Urine RBC 0-5 SEEN Urine WBC >100 SEEN Ur Squamous Epith Cells 0 SEEN Urine Bacteria 2+ Urine Mucus 0 SEEN Radiography Diagnostic Testing: Clinical Impression(s) from Imaging Studies Testicular Ultrasound 12/07/23 22:36 IMPRESSION: Findings are most consistent with right epididymoorchitis. Mild right scrotal wall thickening. Mild-moderate and mildly complex right hydrocele. Hypervascular appearance of the right testis and epididymal head compared to the left. Electronically Signed: Nelly Pantoja MD at 0:30 EST Reading Location ID and State: [facility] / MD Tel , Service support , Discharge Plan Triage Chief Complaint: Male Pain/Injury ED Provider: Rebecca Saleh Dx/Rx/DC Orders Clinical Impression: Acute epididymo-orchitis, Urinary tract infection Instructions: ED Epididymitis, ED Orchitis, ED Bladder Infection, Male (Adult) Prescriptions: New sulfamethoxazole-trimethoprim [Bactrim DS] 800-160 mg tablet 1 tab PO BID 10 Days Qty: 20 0RF No Action amlodipine 5 mg tablet 5 mg PO DAILY Patient Comments: TAKE 1 TABLET BY MOUTH EVERY DAY ciprofloxacin HCl [Cipro] 500 mg tablet 500 mg PO BID Qty: 14 0RF oxycodone 5 mg tablet 5 mg PO Q6H PRN (Reason: pain) 7 Days Qty: 14 0RF atenolol 25 mg tablet 25 mg PO DAILY Patient Comments: TAKE 1 TABLET BY MOUTH EVERY DAY atorvastatin 10 mg tablet 10 mg PO DAILY Patient Comments: TAKE 1 TABLET BY MOUTH EVERY DAY tamsulosin [Flomax] 0.4 mg capsule 0.4 mg PO DAILY Qty: 30 0RF cephalexin [cephalexin] 500 mg capsule 500 mg PO Q6 Qty: 28 0RF Primary Care Provider: Yamileth Garcia Referrals: Yamileth Garcia MD [Primary Care Provider] - Danial Suárez MD [Med Staff - Active Staff] - As soon as possible Activity Restrictions/Additional Instructions: Your lab work was relatively normal. Your ultrasound showed inflammation of your right epididymis as well as your right testicle (we call this epididymoorchitis). Your urinalysis was also consistent with infection. You can start antibiotics to cover for this. You may alternate ibuprofen and Tylenol as needed for fever and pain control. Use ice and high riding underwear to help with the pain of your testicle. Please return to the ER if your symptoms progress or worsen. Please follow-up closely with your urologist.
--- NOTE | 2023-12-07 22:36 | US_ITS ---
EXAM: US SCROTUM CLINICAL INDICATION: right pain and swelling TECHNIQUE: Realtime ultrasound of the testicles was performed with grayscale and Color Doppler analysis. COMPARISON: No relevant prior studies available. FINDINGS: RIGHT TESTICLE: 4.1 cm x 3.1 cm x 3.2 cm. Normal in size and echotexture. No focal lesion. Increased arterial and venous blood flow is present compared to the left testis. LEFT TESTICLE: 3.8 cm x 2.2 cm x 1.9 cm. Normal in size and echotexture. No focal lesion. Normal blood flow is present. EPIDIDYMIDES: Mildly hypervascular appearance of the right epididymal head compared to the left. Right epididymal head 1.2 cm x 1.0 cm x 1.3 cm with a eccentric 3 mm cyst or spermatocele. 3.4 mm maximum diameter cyst or spermatocele in the left epididymal head left epididymal head 1.1 cm x 0.6 cm x 1.0 cm SCROTUM: Slightly thick-walled appearance of the anterior wall of the right scrotum compared to the left and mild increased vascularity in the scrotal wall between the testes, right anterior scrotal wall 6 mm compared to 4 mm on the left. Mild-moderate hydroceles, larger on the right with some slight low level echoes and a few incomplete septations or fibrinous strands, appears mildly complex on the right. No varicocele. US/Testicular with Arterial Flow IMPRESSION: Findings are most consistent with right epididymoorchitis. Mild right scrotal wall thickening. Mild-moderate and mildly complex right hydrocele. Hypervascular appearance of the right testis and epididymal head compared to the left. Electronically Signed: Nelly Pantoja MD at 0:30 EST ,
[2023-12-07] MEDS: 0.9% Normal Saline (1000mL) 1,000 ML 150 ML IV (22:39)
[2023-12-07 22:40] VITALS: TEMP 39.4
[2023-12-07 22:49] LABS: Absolute Lymphocyte Count 0.93 X10^3/uL (0.83-4.51); Absolute Neutrophil Count 8.5 X10^3/uL (2.0-7.7); Basophil# 0.05 X10^3/uL; Basophil% 0.5 % (0-1); Eosinophil# 0.27 X10^3/uL; Eosinophils% 2.5 % (0-5); Hemoglobin 12.7 g/dL (13.0-16.5); Lymphocyte # 0.93 X10^3/ul (0.83-4.51); Lymphocyte % 8.7 % (19-41); Mean Corp Hgb Conc 32.6 g/dL (32-36); Mean Corpuscular Hgb 29.3 pg (27.0-32.0); Mean Corpuscular Volume 90.1 fL (80-94); Mean Platelet Vol. 8.6 fl (6.2-12.0); Monocyte# 0.92 X10^3/uL; Monocyte% 8.6 % (0-10); NRBC Flagged by Analyzer 0 % (0-5); Neutrophil # 8.51 X10^3/uL (2.7-7.7); Neutrophil % 79.2 % (47-70); Platelet Count 212 K/mm3 (150-450); RBC Distribution Width CV 12.5 % (11.6-14.6); RBC Distribution Width SD 41.8 fl (35.1-43.9); Red Blood Count 4.33 M/mm3 (4.6-6.2); White Blood Count 10.7 K/mm3 (4.4-11.0)
[2023-12-07 23:07] LABS: ALB/GLOB Ratio 0.9 RATIO (0.9-2.4); AST(SGOT) 26 U/L (15-37); Alanine Aminotransfer ALT/SGPT 37 U/L (16-61); Alkaline Phosphatase 138 U/L (45-117); Anion Gap 6 (5-15); BUN 21 mg/dL (7-18); Chloride 107 mmol/L (98-107); Creatinine, Serum 1.61 mg/dL (0.70-1.30); EST Glomerular Filtration Rate 44 mL/min (>60); Est Glom Filt Rate - Afr Amer 53 mL/min (>60); Estimated Creatinine Clearance 42.55 ml/min; Globulin 3.5 g/dL (2.2-4.2); Glucose 149 mg/dL (74-106); Potassium 3.8 mmol/L (3.5-5.1); Protein, Total 6.5 g/dL (6.4-8.2); Sodium Level 137 mmol/L (136-145)
[2023-12-07] MEDS: Ketorolac 15 MG/ML Vial IV (23:07)
[2023-12-08 00:12] LABS: Mucous, Urine 0 SEEN /hpf (<or=2+); Squamous Epithelial Cells - UA 0 SEEN /hpf (0-5)
[2023-12-08 00:17] VITALS: BP 134/79; PULSE 109; RESP 18; TEMP 38.1; O2SAT 93
[2023-12-08 00:19] LABS: Color, Urine Yellow (Yellow); Glucose, Dipstick Normal (Normal); Ketone-Dipstick 5 mg/dl (Negative); Leukocyte Esterase-Dipstick 500 /ul (Negative); Nitrite-Dipstick Positive (Negative); Occult Blood-Urine 250 /ul (Negative); Protein-Dipstick 100 mg/dl (Negative); Urine Bilirubin Dipstick Negative (Negative); Urine Clarity Cloudy (Clear); Urine Urobilinogen Normal (Normal)
[2023-12-08 00:59] LABS: Red Blood Cells-Urine 0-5 SEEN /hpf (0-5); White Blood Cells >100 SEEN /hpf (0-5)
[2023-12-08 01:00] LABS: Bacteria 2+ /hpf (None Seen)
[2023-12-08 02:00] VITALS: BP 129/78; PULSE 98; RESP 18; TEMP 36.4; O2SAT 99
[2023-12-08] MEDS: Smz/Tmp Ds Tablet 1 TABLET PO (02:16)
[2023-12-08 02:18] VITALS: BP 129/78; PULSE 98; RESP 16; O2SAT 99
== END 2023-12-08 02:20 | disposition home or self-care (01) ==
PROVIDERS: Emergency Provider Emergency Medicine; PCP Family Medicine; Visit Provider Emergency Medicine
DX: N45.3 Epididymo-orchitis (principal); N39.0 Urinary tract infection, site not specified
CPT/HCPCS: 76870; 80053; 81001; 83605; 85025; 87077; 87086; 87088; 87186; 93976; 96374; 99283; J7030; A4216

== ENCOUNTER → 2023-12-08 | Outpatient (CLI) | payer MEDICARE, OTHER, SELFPAY ==
--- OUTSIDE RECORDS SUMMARY | 2023-12-08 16:51 | XMS RPT_ITS | CCD ---
Author Name Unknown Address [address] [place] [address] Organization [facility] Care Team Providers Care [employer] Name Role Phone Ming Levy Attending Unavailable [...] Ina De Luna MD Primary Care Provider [phone] Prabhakar Mcleod Unavailable GERMAN BLACKWELL Attending Unavailable INA DE LUNA Primary Care Unavailable GERMAN BLACKWELL Referring Unavailable INA DE LUNA Primary Care Unavailable GERMAN BLACKWELL Referring Unavailable GERMAN BLACKWELL Attending Unavailable Allergies Allergy Classification Reported Allergen(s) Allergy Type Date of Onset Reaction(s) Facility (5 sources) Bee Sting; Translations: [BEE STING] Allergy to substance 11-22-2014 Vomiting [facility] Medications Current Medications Medication Drug Class(es) [...] 96 mm[Hg] German Blackwell MD Work Phone: [facility] 04-22-2022 11:18-0400 Heart rate 89 /min German Blackwell MD Work Phone: [facility] 04-22-2022 11:18-0400 Systolic blood pressure 124 mm[Hg] German Blackwell MD Work Phone: [facility] Encounters Encounter Date Encounter Type Care Provider Facility Start: 09-09-2023 End: 09-09-2023 ambulatory GERMAN BLACKWELL Facility:[facility] Start: 09-09-2023 End: 09-09-2023 Patient encounter procedure [...] Vaccine ( season) Covid-19 Vaccine ( season) [facility] Start: 11-09-2022 ADVANCE DIRECTIVE DISCUSSION ADVANCE DIRECTIVE DISCUSSION [facility] Start: 11-09-2022 DEPRESSION ASSESSMENT DEPRESSION ASS ESSMENT [facility] Start: 07-10-2022 Influenza vaccination INFLUENZA (#1) [facility] Start: 02-08-2022 COVID-19 VACCINE (4 - Booster for Moderna series) COVID-19 VACCINE (4 - Booster for Moderna series) [facility] Start: 12-05-2021 COVID-19 VACCINE (4 - Booster for Moderna series) COVID-19 VACCINE (4 - Booster for Moderna series) [facility] Start: 11-09-2021 ADVANCE DIRECTIVE DISCUSSION ADVANCE DIRECTIVE DISCUSSION [facility] Start: 11-09-2021 DEPRESSION ASSESSMENT DEPRESSION ASS ESSMENT [facility] Start: 09-30-2018 Pneumococcal Vaccine : 65+ (2 - PCV) Pneumococcal Vaccine: 65+ (2 - PCV) [facility] Start: 2007 PNEUMOCOCCAL: 65+ (1 - PCV) PNEUMOCOCCAL: 65+ (1 - PCV) [facility] Start: 2002 RSV Vaccine (1 - 1-d ose 60+ series) RSV Vaccine (1 - 1-dose 60+ series) [facility] Start: 1992 SHINGRIX VACCINE (1 of 2) SHINGRIX V ACCINE (1 of 2) [facility] Start: 1987 [facility] Start: 1987 Diabetes Screening Diabetes Screenin g [facility] Start: 1961 Urine microalbumin profile [facility] Start: 1960 ANNUAL PCP TEAM GAS CONTROLLER ELISA DISEASE VISIT ANNUAL PCP TEAM CHRONIC DISEASE VISIT [facility] Start: 1960 BP CONTROLLED (<130/80) BP CONTROLLE D (<130/80) [facility] Start: 1954 Adult depression screening assessment DEPRESSION SCREENING [facility] Payers Date Payer Category Payer Unknown 2016 Medicare [place] [employer]ELIA [employer] SUPPLEMENT [id number] 2016-Present [phone] [address] [place], [place] [address], [place] [address] Medicare [id number] 2007 Medicare [id number] 2007 Medicare 2007 Medicare MEDICARE MEDICAR E A AND B [id number] 2007-Present [phone] [address] [address] [place] [address] Medicare [id number] 1942 Unknown [id number] 1942 Unknown [id number] 1942 Unknown [id number] 1942 Unknown [id number] 1942 Unknown [id number] 1942 Unknown [id number] 1942 Unknown [id number] Medicare [id number] Unknown [id number] Social History Date Type Detail Facility Start: 11-22-2014 End: 11-04-2018 Tobacco smoking status ARIS Never smoked tobacco [facility] Start: 11-22-2014 End: 11-04-2018 Tobacco use and exposure Smokeless tobacco non-user [facility] Start: 04-22-2022 End: 09-09-2023 Alcohol intake Ex-drinker (finding) [facility] Start: 1940 Sex Assigned At Not on file [facility] Start: 04-12-2022 End: 08-29-2022 Exposure to SARS-CoV-2 (event) Not sure [facility] Start: 09-09-2023 History of Social function [facility] Start: 09-09-2023 Tobacco use panel [facility] National Score (1-10 0), lower number is lower risk 59 [facility] Clinical Notes 03-22-2021 to 09-09-2023 Patient InstructionsGerman Blackwell MD - 09/09/2023 9:43 AM EDTPatient InstructionsMojevon Blackwell MD - 03/09/2023 9:10 AM EDT Note Date & Type Note Facility 09-09-2023 Note HNO ID: [id number] Author: German Blackwell MD Service: ? Author [...] diagnosis, and treatment options. German Blackwell MD [facility] 09-09-2023 Instructions German Blackwell MD - 09/09/2023 10:30 AM EDT If you have any questions please contact our office at [phone]. After office hours or on the weekend, please call Dr. Blackwell on his cell phone at [phone]. documented in this encounter [facility] 09-09-2023 History of Present illness Narrative [...] German Blackwell MD documented in this encounter [facility] 03-09-2023 Note HNO ID: [id number] Author: German Blackwell MD Service: ? Author [...] diagnosis, and treatment options. German Blackwell MD [facility] 03-09-2023 Instructions German Blackwell MD - 03/09/2023 [...] any questions please contact our office at [phone]. After office hours or on the weekend, please call Dr. Blackwell on his cell phone at [phone]. documented in this encounter [facility] 03-09-2023 History of Present illness Narrative [...] German Blackwell MD documented in this encounter [facility] documented as of this encounter (statuses as of 09/09/2023) [facility]10-21-2022 History of Present illness Narrative* German [...] diagnosis, and treatment options. [facility] Instructions* Patient Instructions* German Blackwell MD - 04/22/2022 11:33 AM EDT If you have any questions please contact our office at [phone]. After office hours or on the weekend, please call Dr. Blackwell on his cell phone at [phone]. [facility] History of Present illness Narrative* German [...] diagnosis, and treatment options. [facility] History of Past illness Narrative* Problem Noted Date Resolved Date Optic disc hemorrhage, right 01/28/202102/2021 Glaucoma suspect of both eyes 12/14/2020 Optic disc hemorrhage, left 12/14/2020 1002/2021 Dry eye 09/11/2015 09/11/2016 Pseudophakia, both eyes 11/22/2014 09/11/20 16 documented as of this encounter (statuses as of 04/22/2022) [facility] History of Past illness Narrative* Problem Noted Date Resolved Date Normal tension glaucoma of both eyes, mild stage 01/28/2021 08/29/2022 Optic disc hemorrhage, right 01/28/202102/2021 Glaucoma suspect of both eyes 12/14/2020 Optic disc hemorrhage, left 12/14/20200 02/2021 Dry eye 09/11/2015 09/11/2016 Pseudophakia, both eyes 11/22/2014 09/11/20 16 documented as of this encounter (statuses as of 08/29/2022) [facility] History of Past illness Narrative* Problem Noted Date Resolved Date Normal tension glaucoma of both eyes, mild stage 01/28/2021 08/29/2022 Optic disc hemorrhage, right 01/28/202102/2021 Glaucoma suspect of both eyes 12/14/2020 Optic disc hemorrhage, left 12/14/202002/2021 Dry eye 09/11/2015 09/11/2016 Pseudophakia, both eyes 11/22/2014 09/11/20 16 documented as of this encounter (statuses as of 03/09/2023) [facility] Diagnosis Normal tension glaucoma of right eye, 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, 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 Essential hypertension Unspecified essential hypertension [facility] Diagnosis Normal tension glaucoma of right eye, 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, 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, unspecified Essential hypertension Unspecified essential hypertension [facility] Diagnosis Primary open angle glaucoma (POAG) of both eyes, moderate stage- Primary 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, unspecified Hx of LASIK Other states following surgery of eye and adnexa Pseudophakia of both eyes Lens replaced by other means Essential hypertension Unspecified essential hypertension [facility] Diagnosis Primary open angle glaucoma (POAG) of both eyes, moderate stage- Primary 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, unspecified Essential hypertension Unspecified essential hypertension documented in this encounter [facility] Summary Purpose Family History No Family [...] DATE CREATED AUTHOR AUTHOR'S ORGANIZ ATION 12/28/2018 [facility] DATE CREATED AUTHOR AUTHOR'S ORGANIZ ATION 11/20/2019 [facility] DATE CREATED AUTHOR AUTHOR'S ORGANIZ ATION 12/14/2019 [employer] DATE CREATED AUTHOR AUTHOR'S ORGANIZ ATION 09/14/2022 [facility] DATE CREATED AUTHOR AUTHOR'S ORGANIZ ATION 09/10/2023 [facility] Source Comments (unrecognize d section and content) In the event this informatio n is protected by the Federal Confidentiality of Alcohol and Drug Abuse Patient Records regulations: The Federal rules restrict any use of the information to criminally investigate or prosecute any alcohol or drug abuse patient.[facility] the event this information is protected by the Federal Confidentiality of Alcohol and Drug Abuse Patient Records regulations: The Federal rules restrict any use of the information to criminally investigate or prosecute any alcohol or drug abuse patient.[facility] the event this information is protected by the Federal Confidentiality of Alcohol and Drug Abuse Patient Records regulations: The Federal rules restrict any use of the information to criminally investigate or prosecute any alcohol or drug abuse patient.[facility] the event this information is protected by the Federal Confidentiality of Alcohol and Drug Abuse Patient Records regulations: The Federal rules restrict any use of the information to criminally investigate or prosecute any alcohol or drug abuse patient.[facility] Reason for Visit (unrecogniz ed section and content) Reason Comments Normal Tension Glaucoma Follow Up Reason Comments Glaucoma Follow Up Both eyes Pseudophakia Both eyes Reason Comments Primary Open Angle Glaucoma Follow Up Blurred Vision Left Eye Part of vision, intermittent Foreign Body Sensation Left eye, tempora l corner, intermittent Care Teams (unrecognized sec tion and content) [employer] Field Techn[employer] Relationship Specialty Start Date End Date Ina De Luna PCP - General Family Medicine 07/21/12 [employer] Relationship Specialty Start Date End Date Ina De Luna PCP - General Family Medicine 07/21/12 [employer] Relationship Specialty Start Date End Date Ina De Luna MD PCP - General Family Medicine 07/21/12 Prabhakar Mcleod [address] [address] Optometry 09/09/23 FOR RECORDS PERTAINING [...] BE BASED ON THE PRIMARY CLINICAL RECORDS. [facility] [employer] [facility]. provides no warranty or guarantee of the accuracy or completeness of information in this document.
== END | disposition home or self-care (01) ==
LOC: LABSPEC 16:12
PROVIDERS: PCP Family Medicine; Referring Provider Urology; Visit Provider Urology
DX: N45.3 Epididymo-orchitis (principal)
CPT/HCPCS: 87077; 87086; 87088; 87186

== ENCOUNTER → 2023-12-18 | Outpatient (CLI) | payer MEDICARE, OTHER, SELFPAY ==
--- NOTE | 2023-12-18 10:54 | US_ITS ---
HISTORY: Swollen right testicle. TECHNIQUE: Realtime ultrasound of the testicles was performed with grayscale, Color Doppler and spectral Doppler analysis. 100 images. COMPARISON: 12/07/2023. FINDINGS: Right- TESTIS: 3.5 x 4 x 2.8 cm. Heterogeneous without focal lesion demonstrated. COLOR DOPPLER: Increased flow to the right testicle EPIDIDYMIS: 8 x 10 mm with a 5 mm complex cyst. No focal hyperemia. EXTRATESTICULAR CONTENTS: Increased moderate hydrocele with septations, echogenic material possible adhesions, and internal echoes. Increased right scrotal wall thickening. Left- TESTIS: 2.6 x 3.6 x 2.1 cm. Homogeneous echotexture with a 4 mm cyst again seen. COLOR DOPPLER: Normal arterial flow present in the testicle with monophasic waveforms. EPIDIDYMIS: 7 x 10 mm with 5 mm and 4 mm cysts. [No focal hyperemia. EXTRATESTICULAR CONTENTS: No significant hydrocele US/Testicular with Arterial Flow IMPRESSION: Right testicular heterogeneity with persistent hyperemia, concerning for persistent orchitis. Increased size of moderate complex right hydrocele with pyocele not excluded. Scrotal wall thickening. Small epididymal cysts. Electronically Signed: Nancy Lim MD at 10:53 EST ,
== END | disposition home or self-care (01) ==
LOC: US 10:51
PROVIDERS: PCP Family Medicine; Referring Provider Family Medicine; Visit Provider Family Medicine
DX: N50.89 Other specified disorders of the male genital organs (principal)
CPT/HCPCS: 76870; 93976

== ENCOUNTER 2024-01-04 17:08 | Inpatient (IN) | payer MEDICARE, OTHER, SELFPAY ==
[2024-01-04] VITALS (9 sets, daily range): BP systolic 111–143; BP diastolic 71–87; PULSE 93–119; RESP 18–93; TEMP 36.5–37.6; O2SAT 89–97; BMI 34.0; BMI 32.8
--- NOTE | 2024-01-04 18:46 | EX.ED.DYSGE1 ---
HPI <RUDY Rodrigues - Last Filed: 01/04/24 21:35> History of Present Illness Chief Complaint: Weakness Narrative Narrative: 83-year-old male with PMH of HTN has had 2 days of fever, chills, shakiness and weakness. He had his assist him when walking around today. He has no congestion or cough. No chest pain or shortness of breath. No GI symptoms. He is having normal bladder and bowel movements. Last dose of Tylenol was this morning. PFSH <RUDY Rodrigues - Last Filed: 01/04/24 21:35> PFSH Medical History Failed total knee, left High cholesterol Hypertension Prostate disease Wears dentures Wears glasses Wears hearing aid Home Medications amlodipine 10 mg tablet 10 mg PO DAILY 01/04/24 [History Last Taken Unknown] furosemide 20 mg tablet 20 mg PO DAILY PRN PRN swelling 01/04/24 [History Last Taken Unknown] Allergy/AdvReac Type Severity Reaction Status Date / Time bee venom protein (honey bee) Allergy Mild Upset Verified 01/04/24 17:11 Stomach Surgical History History of cholecystectomy History of colonoscopy History of total left knee replacement (TKR) Social History Smoking Status: Never smoker ROS <RUDY Rodrigues - Last Filed: 01/04/24 21:35> ROS ED ROS Narrative Constitutional: Positive for fever, chills, malaise. CVS: Negative for chest pain, syncope. Respiratory: Negative for shortness of breath, cough. GI: Negative for abdominal pain, nausea, vomiting, diarrhea. : Negative for dysuria. Neuro: Negative for headache. EXAM <RUDY Rodrigues - Last Filed: 01/04/24 21:35> Physical Exam Narrative Exam Narrative: CONST: Patient appears ill but nontoxic. EYES: Normal inspection. ENT: Normal inspection, slightly dry mucous membranes. NECK: Normal inspection. No meningismus. RESP: No respiratory distress, CTAB. CVS: Tachycardic with regular rhythm, no murmur, no gallop. ABD: Soft and nontender, no guarding or rebound, nondistended. SKIN: Color normal, no rash, warm, dry, intact. EXTREMITIES: Normal appearance, no pedal edema. NEURO: Oriented x4. PSYCH: Normal affect. Const Vital Signs: 01/04/24 17:09 01/04/24 18:57 01/04/24 19:02 Temperature 97.7 F L 99.6 F H Temperature Source Temporal Oral Pulse Rate 119 H 113 H Respiratory Rate 20 H 93 H Respiratory Effort Normal Non-Labored Respiratory Pattern Normal Blood Pressure 125/87 H 125/75 H Blood Pressure Mean 99 91 Pulse Ox 95 92 Oxygen Delivery Method Room Air Room Air 01/04/24 19:15 01/04/24 19:30 01/04/24 19:45 Temperature Temperature Source Pulse Rate Respiratory Rate Respiratory Effort Respiratory Pattern Blood Pressure 122/71 H 113/75 111/74 Blood Pressure Mean 86 87 84 Pulse Ox 92 89 Oxygen Delivery Method 01/04/24 20:00 01/04/24 20:29 Temperature 98.4 F Temperature Source Pulse Rate 93 Respiratory Rate 22 H Respiratory Effort Respiratory Pattern Blood Pressure 132/77 H 122/72 H Blood Pressure Mean 92 88 Pulse Ox 91 92 Oxygen Delivery Method <Geronimo Quan MD - Last Filed: 01/04/24 21:39> Physical Exam Const Vital Signs: 01/04/24 17:09 01/04/24 18:57 01/04/24 19:02 Temperature 97.7 F L 99.6 F H Temperature Source Temporal Oral Pulse Rate 119 H 113 H Respiratory Rate 20 H 93 H Respiratory Effort Normal Non-Labored Respiratory Pattern Normal Blood Pressure 125/87 H 125/75 H Blood Pressure Mean 99 91 Pulse Ox 95 92 Oxygen Delivery Method Room Air Room Air 01/04/24 19:15 01/04/24 19:30 01/04/24 19:45 Temperature Temperature Source Pulse Rate Respiratory Rate Respiratory Effort Respiratory Pattern Blood Pressure 122/71 H 113/75 111/74 Blood Pressure Mean 86 87 84 Pulse Ox 92 89 Oxygen Delivery Method 01/04/24 20:00 01/04/24 20:29 Temperature 98.4 F Temperature Source Pulse Rate 93 Respiratory Rate 22 H Respiratory Effort Respiratory Pattern Blood Pressure 132/77 H 122/72 H Blood Pressure Mean 92 88 Pulse Ox 91 92 Oxygen Delivery Method [facility] <RUDY Rodrigues - Last Filed: 01/04/24 21:35> MDM MDM Narrative Medical decision making narrative: History gathered from: Patient and Differential: Viral illness, pneumonia, UTI Patient is 2 days of fever, chills, and shakes. No other specific symptoms just does not feel well. He appears ill but nontoxic. HR is 119 with otherwise normal vital signs. He has slightly dry mucous membranes. Heart is rapid but regular with no murmurs. Lungs clear. Abdomen soft and nontender. CBC is WNL. Electrolytes are normal with BUN of 24, creatinine 2.03. Prior creatinine was 1.61. Urinalysis is positive for infection. Past cultures show pansensitive E. coli so I ordered Rocephin. Patient's heart rate has improved but he does not look well and is diaphoretic and I feel he should be admitted for observation. states he has been very weak at home. Case will be discussed with the hospitalist. Lab Data Attestation: I reviewed the patient's lab results. Labs: Laboratory Results - last 24 hr 01/04/24 01/04/24 18:50 19:30 WBC 9.5 RBC 4.98 Hgb 14.6 Hct 43.6 MCV 87.6 MCH 29.3 MCHC 33.5 RDW Std Deviation 42.6 RDW Coeff of Herminio 13.5 Plt Count 277 MPV 8.8 Immature Gran % (Auto) 0.900 Neut % (Auto) 70.8 H Lymph % (Auto) 10.1 L [place] % (Auto) 10.7 H Eos % (Auto) 6.7 H Baso % (Auto) 0.8 Absolute Neuts (auto) 6.7 Absolute Lymphs (auto) 0.96 Nucleated RBC % 0 Sodium 138 Potassium 4.1 Chloride 107 Carbon Dioxide 24.0 Anion Gap 7 BUN 24 H Creatinine 2.03 H Estim Creat Clear Calc 32.95 Est GFR (MDRD) Af Amer 41 L Est GFR (MDRD) Non-Af 34 L BUN/Creatinine Ratio 11.8 Glucose 128 H Calcium 9.6 Urine Color Yellow Urine Clarity Cloudy Urine pH 6.0 Ur Specific [place] 1.025 Urine Protein 30 H Urine Glucose (UA) Normal Urine Ketones 5 H Urine Occult Blood 150 H Urine Nitrite Positive H Urine Bilirubin Negative Urine Urobilinogen Normal Ur Leukocyte Esterase 500 H Urine RBC 0 SEEN Urine WBC >100 SEEN Ur Squamous Epith Cells 0 SEEN Urine Bacteria 0 SEEN Urine Mucus 0 SEEN Radiography Diagnostic Testing: Clinical Impression(s) from Imaging Studies Chest X-Ray 01/04/24 18:54 IMPRESSION: No radiographic evidence of acute cardiopulmonary disease. Electronically Signed: Tere Barton MD at 19:38 EST Reading Location ID and State: Replaced by [facility] / [place] Tel , Service support , <Geronimo Quan MD - Last Filed: 01/04/24 21:39> MDM MDM Narrative Medical decision making narrative: History gathered from: Patient and Differential: Viral illness, pneumonia, UTI Patient is 2 days of fever, chills, and shakes. No other specific symptoms just does not feel well. He appears ill but nontoxic. HR is 119 with otherwise normal vital signs. He has slightly dry mucous membranes. Heart is rapid but regular with no murmurs. Lungs clear. Abdomen soft and nontender. CBC is WNL. Electrolytes are normal with BUN of 24, creatinine 2.03. Prior creatinine was 1.61. Urinalysis is positive for infection. Past cultures show pansensitive E. coli so I ordered Rocephin. Patient's heart rate has improved but he does not look well and is diaphoretic and I feel he should be admitted for observation. states he has been very weak at home. Case will be discussed with the hospitalist. Dr. Quan: I have personally performed a face to face assessment of the patient and have reviewed the CHENCHO Note. I performed a substantive portion of the visit including all aspects of the following. My ray findings include: History is chills, generalized weakness, history of UTI Exam is afebrile. Vital signs noted. Regular rate and rhythm. Lungs clear to auscultation bilaterally. Abdomen soft and nontender with normal active bowel sounds. Medical Decision Making: Concern is for infectious cause of patient's diaphoresis, and shaking chills yesterday. Check labs. Check UA. Check respiratory swabs, check chest x-ray. Chest x-ray interpreted by myself and 1 view shows no evidence of an acute process, no pneumonia, no pneumothorax. Urinalysis positive for UTI. Given patient's age and diaphoresis with rigors, antibiotics and discussion with the hospitalist to be placed on observation. Patient is in stable condition. Other additions or changes: [None] History & Record Review Discussion w/independent historian: Patient and Family (Spouse) Lab Data Labs: Laboratory Results - last 24 hr 01/04/24 01/04/24 18:50 19:30 WBC 9.5 RBC 4.98 Hgb 14.6 Hct 43.6 MCV 87.6 MCH 29.3 MCHC 33.5 RDW Std Deviation 42.6 RDW Coeff of Herminio 13.5 Plt Count 277 MPV 8.8 Immature Gran % (Auto) 0.900 Neut % (Auto) 70.8 H Lymph % (Auto) 10.1 L [place] % (Auto) 10.7 H Eos % (Auto) 6.7 H Baso % (Auto) 0.8 Absolute Neuts (auto) 6.7 Absolute Lymphs (auto) 0.96 Nucleated RBC % 0 Sodium 138 Potassium 4.1 Chloride 107 Carbon Dioxide 24.0 Anion Gap 7 BUN 24 H Creatinine 2.03 H Estim Creat Clear Calc 32.95 Est GFR (MDRD) Af Amer 41 L Est GFR (MDRD) Non-Af 34 L BUN/Creatinine Ratio 11.8 Glucose 128 H Calcium 9.6 Urine Color Yellow Urine Clarity Cloudy Urine pH 6.0 Ur Specific [place] 1.025 Urine Protein 30 H Urine Glucose (UA) Normal Urine Ketones 5 H Urine Occult Blood 150 H Urine Nitrite Positive H Urine Bilirubin Negative Urine Urobilinogen Normal Ur Leukocyte Esterase 500 H Urine RBC 0 SEEN Urine WBC >100 SEEN Ur Squamous Epith Cells 0 SEEN Urine Bacteria 0 SEEN Urine Mucus 0 SEEN Radiography Diagnostic Testing: Clinical Impression(s) from Imaging Studies Chest X-Ray 01/04/24 18:54 IMPRESSION: No radiographic evidence of acute cardiopulmonary disease. Electronically Signed: Tere Barton MD at 19:38 EST , Discharge Plan Triage Chief Complaint: Weakness ED Midlevel Provider: Angela Martin ED Provider: Geronimo Quan Dx/Rx/DC Orders Clinical Impression: Acute UTI, Generalized weakness, DEAN (acute kidney injury) Prescriptions: No Action furosemide 20 mg tablet 20 mg PO DAILY PRN PRN (Reason: swelling) Patient Comments: 1 (ONE) TABLET BY MOUTH NEEDED, ONE A DAY NEEDED FOR SWOLLEN ANKLES amlodipine 10 mg tablet 10 mg PO DAILY Patient Comments: TAKE 1 TABLET BY MOUTH EVERY DAY Primary Care Provider: Yamileth Garcia Referrals: Yamileth Garcia MD [Primary Care Provider] -
[2024-01-04 18:54] LABS: Absolute Lymphocyte Count 0.96 X10^3/uL (0.83-4.51); Absolute Neutrophil Count 6.7 X10^3/uL (2.0-7.7); Basophil# 0.08 X10^3/uL; Basophil% 0.8 % (0-1); Eosinophil# 0.64 X10^3/uL; Eosinophils% 6.7 % (0-5); Hematocrit 43.6 % (40-54); Hemoglobin 14.6 g/dL (13.0-16.5); Lymphocyte # 0.96 X10^3/ul (0.83-4.51); Lymphocyte % 10.1 % (19-41); Mean Corp Hgb Conc 33.5 g/dL (32-36); Mean Corpuscular Hgb 29.3 pg (27.0-32.0); Mean Corpuscular Volume 87.6 fL (80-94); Mean Platelet Vol. 8.8 fl (6.2-12.0); Monocyte# 1.02 X10^3/uL; Monocyte% 10.7 % (0-10); NRBC Flagged by Analyzer 0 % (0-5); Neutrophil # 6.71 X10^3/uL (2.7-7.7); Neutrophil % 70.8 % (47-70); Platelet Count 277 K/mm3 (150-450); RBC Distribution Width CV 13.5 % (11.6-14.6); RBC Distribution Width SD 42.6 fl (35.1-43.9); Red Blood Count 4.98 M/mm3 (4.6-6.2); White Blood Count 9.5 K/mm3 (4.4-11.0)
[2024-01-04] MEDS: Acetaminophen 325 MG Tablet 650 MG PO (18:54)
--- NOTE | 2024-01-04 18:54 | RAD_ITS ---
INDICATION: fever EXAMINATION/TECHNIQUE: X-RAY - XR Chest 2 frontal images COMPARISON: CT of the abdomen and pelvis dated October 09, 2023 FINDINGS: LINES/DEVICES: None. LUNGS: There are low lung volumes. No consolidation, edema or effusion. No pneumothorax. MEDIASTINUM AND CARDIOVASCULAR STRUCTURES: Cardiac silhouette not enlarged. Central airways and mediastinal contour are unremarkable. BONES AND SOFT TISSUES: There are degenerative changes of the shoulders. RAD/Chest 1 View (Portable) IMPRESSION: No radiographic evidence of acute cardiopulmonary disease. Electronically Signed: Tere Barton MD at 19:38 EST ,
[2024-01-04] MEDS: 0.9% Normal Saline (1000mL) 1,000 ML 999 ML IV (18:55)
[2024-01-04 19:10] LABS: Anion Gap 7 (5-15); BUN 24 mg/dL (7-18); BUN/Creat Ratio 11.8 RATIO (10-20); Calcium,Total 9.6 mg/dL (8.5-10.1); Chloride 107 mmol/L (98-107); Creatinine, Serum 2.03 mg/dL (0.70-1.30); EST Glomerular Filtration Rate 34 mL/min (>60); Est Glom Filt Rate - Afr Amer 41 mL/min (>60); Estimated Creatinine Clearance 32.95 ml/min; Glucose 128 mg/dL (74-106); Potassium 4.1 mmol/L (3.5-5.1); Sodium Level 138 mmol/L (136-145)
[2024-01-04 19:39] LABS: Bacteria 0 SEEN /hpf (None Seen); Mucous, Urine 0 SEEN /hpf (<or=2+); Red Blood Cells-Urine 0 SEEN /hpf (0-5); Squamous Epithelial Cells - UA 0 SEEN /hpf (0-5)
[2024-01-04 19:44] LABS: Color, Urine Yellow (Yellow); Glucose, Dipstick Normal (Normal); Ketone-Dipstick 5 mg/dl (Negative); Leukocyte Esterase-Dipstick 500 /ul (Negative); Nitrite-Dipstick Positive (Negative); Occult Blood-Urine 150 /ul (Negative); Protein-Dipstick 30 mg/dl (Negative); Specific Gravity, Urine 1.025 (1.002-1.030); Urine Bilirubin Dipstick Negative (Negative); Urine Clarity Cloudy (Clear); Urine Urobilinogen Normal (Normal)
[2024-01-04 19:52] LABS: White Blood Cells >100 SEEN /hpf (0-5)
[2024-01-04] MEDS: Ceftriaxone 1 GM/50 ML BAG IV (20:28)
--- NOTE | 2024-01-04 21:23 | HP.PCM.HOS_ITS ---
[facility] - General General Date of Admission: 01/04/24 Date of Service: 01/04/24 Chief Complaint: Fevers, Chills and Malaise x 2 Days. HPI Narrative REA LAWRENCE, is a 83 M with a past medical history of essential hypertension, hyperlipidemia, obesity; with BMI of 34 this admission, BPH and OA; with history of failed Left TKR who presents to [facility] ER complaining of fever, chills and malaise. Mr. Lawrence reports his symptoms began approximately two days prior to admission with the gradual-onset of generalized weakness, fe miah and chills. He also admits to poor oral intake and his weakness worsening so that his had to assist him walking around today so they finally decided to come in for further evaluation and treatment after he took Tylenol which did help partially relieve his symptoms. He denies dysuria, abdominal pain, nausea, vomiting, diarrhea, constipation, chest pain or SOB. In the ER he was noted to have UA positive for acute cystitis; without hematuria complicated by laboratory evidence of acute kidney injury with elevated serum creatinine of 2.03 mg/dL (up from his baseline of 1.6 mg/dL few weeks ago) compounded by clinical evidence of generalized weakness with ambulatory dysfunction and he was then admitted to the general medical floor for ongoing care for status expected to be greater than 48 hours. [facility] Medical History Failed total knee, left High cholesterol Hypertension Prostate disease Wears dentures Wears glasses Wears hearing aid Home Medications amlodipine 10 mg tablet 10 mg PO DAILY 01/04/24 [History Last Taken Unknown] furosemide 20 mg tablet 20 mg PO DAILY PRN PRN swelling 01/04/24 [History Last Taken Unknown] Allergy/AdvReac Type Severity Reaction Status Date / Time bee venom protein (honey bee) Allergy Mild Upset Verified 01/04/24 17:11 Stomach Surgical History History of cholecystectomy History of colonoscopy History of total left knee replacement (TKR) Social History Smoking Status: Never smoker ROS ROS Narrative Review of systems: General: Patient admits to fever, chills and malaise. HENT: Denies headache, denies stuffy nose, denies sore throat EYES: Denies changes in vision or discharge from eyes Resp: Denies cough, denies shortness of breath Cardiac: Denies chest pain or palpitations GI: Denies abdominal pain, denies changes in bowel, denies nausea or vomiting : Patient admits to discolored and foul-smelling urine. Extremity: Denies swelling Musculoskeletal: Feels somewhat generally weak and unwell Neuro: Denies any numbness/tingling Heme: Denies any bleeding or bruising Skin: Denies rashes Psychiatric: No complaints voiced related to uncontrolled depression or anxiety. Endocrine: No polyuria, polydipsia or polyphagia. The rest of the 14 point ROS was negative except for positives in HPI. Vital Signs Vital Signs Vital Signs: 01/04/24 17:09 01/04/24 18:57 01/04/24 19:02 Temperature 97.7 F L 99.6 F H Temperature Source Temporal Oral Pulse Rate 119 H 113 H Respiratory Rate 20 H 93 H Respiratory Effort Normal Non-Labored Respiratory Pattern Normal Blood Pressure 125/87 H 125/75 H Blood Pressure Mean 99 91 Pulse Ox 95 92 Oxygen Delivery Method Room Air Room Air 01/04/24 19:15 01/04/24 19:30 01/04/24 19:45 Temperature Temperature Source Pulse Rate Respiratory Rate Respiratory Effort Respiratory Pattern Blood Pressure 122/71 H 113/75 111/74 Blood Pressure Mean 86 87 84 Pulse Ox 92 89 Oxygen Delivery Method 01/04/24 20:00 01/04/24 20:29 Temperature 98.4 F Temperature Source Pulse Rate 93 Respiratory Rate 22 H Respiratory Effort Respiratory Pattern Blood Pressure 132/77 H 122/72 H Blood Pressure Mean 92 88 Pulse Ox 91 92 Oxygen Delivery Method Weight Weight: 223 lb 11.2 oz Body Mass Index (BMI) 34.0 Physical Exam Const alert, oriented x3, no apparent distress and average body habitus General Appearance: cooperative HEENT normocephalic, head/scalp atraumatic, hearing grossly normal bilaterally and moist oral mucous membranes Eyes PERRL, EOMs intact bilaterally and conjunctivae normal Neck no lymphadenopathy and supple Resp normal respiratory effort, no retractions, no use of accessory muscles and clear to auscultation bilaterally Cardio regular rate and regular rhythm GI normal to inspection, nondistended, normoactive bowel sounds, soft to palpation, non-tender and non-distended Extremity normal to inspection, full ROM and no clubbing, cyanosis or edema Skin Skin Narrative: Patient has no evidence of rash or jaundice at this time. Neuro oriented x3, CN's II-XII intact bilaterally, moves all extremities and no focal motor deficits Sensorium / Orientation: awake, alert, oriented to person, oriented to place and oriented to time Speech: speech normal Motor Exam: strength 5/5 throughout Psych affect normal Results Medical Records Data Attestation: I reviewed the patient's medical records Lab / Micro Data Attestation: I reviewed the patient's lab results. 01/04/24 18:50 01/04/24 18:50 Labs: Laboratory Results - last 24 hr 01/04/24 18:50: WBC 9.5, RBC 4.98, Hgb 14.6, Hct 43.6, MCV 87.6, MCH 29.3, MCHC 33.5, RDW Std Deviation 42.6, RDW Coeff of Herminio 13.5, Plt Count 277, MPV 8.8, Immature Gran % (Auto) 0.900, Neut % (Auto) 70.8 H, Lymph % (Auto) 10.1 L, Perkins % (Auto) 10.7 H, Eos % (Auto) 6.7 H, Baso % (Auto) 0.8, Absolute Neuts (auto) 6.7, Absolute Lymphs (auto) 0.96, Nucleated RBC % 0, Sodium 138, Potassium 4.1, Chloride 107, Carbon Dioxide 24.0, Anion Gap 7, BUN 24 H, Creatinine 2.03 H, Estim Creat Clear Calc 32.95, Est GFR (MDRD) Af Amer 41 L, Est GFR (MDRD) Non-Af 34 L, BUN/Creatinine Ratio 11.8, Glucose 128 H, Calcium 9.6 01/04/24 19:30: Urine Color Yellow, Urine Clarity Cloudy, Urine pH 6.0, Ur Specific Freeland 1.025, Urine Protein 30 H, Urine Glucose (UA) Normal, Urine Ketones 5 H, Urine Occult Blood 150 H, Urine Nitrite Positive H, Urine Bilirubin Negative, Urine Urobilinogen Normal, Ur Leukocyte Esterase 500 H, Urine RBC 0 SEEN, Urine WBC >100 SEEN, Ur Squamous Epith Cells 0 SEEN, Urine Bacteria 0 SEEN, Urine Mucus 0 SEEN Micro: Microbiology 01/04/24 18:50 Mucosa - Nose SARS-CoV-2, Influenza & RSV (PCR) - Final Imaging Radiology Impression Chest X-Ray 01/04/24 18:54 IMPRESSION: No radiographic evidence of acute cardiopulmonary disease. Electronically Signed: Tere Barton MD at 19:38 EST Reading Location ID and State: [facility] / [place] Tel , Service support , Assessment & Plan Assessment/Plan (1) Acute cystitis without hematuria: (2) DEAN (acute kidney injury): (3) BPH (benign prostatic hyperplasia): QUALIFIERS: Lower urinary tract symptom detail: unspecified Lower urinary tract symptom presence: symptoms present Qualified Code(s): N40.1 - Benign prostatic hyperplasia with lower urinary tract symptoms (4) Generalized weakness: PLAN: Plan 1. Acute cystitis; without hematuria - Admit to general medical floor. Continue broad-spectrum antibiotics with IV Merrem and await culture and sensitivity data since patient continued to spike high temperatures on IV Rocephin. Give Tylenol as needed pain or fever. 2. Acute kidney injury; secondary to dehydration with serum creatinine of 2.03 mg/dL present on admission (up from baseline of 1.61 mg/dL one month ago) arising from #1 - Resume vigorous volume resuscitation begun in the ER and recheck BMP in the a.m. to ensure improvement. Avoid potentially nephrotoxic agents. 3. Generalized weakness with ambulatory dysfunction attributable to #1 & #2 - PT/OT and case management to consult and treat on rounds in the a.m. with help appreciated in advance. 4. Essential hypertension - Hold scheduled antihypertensives until volume status is corrected. Give IV hydralazine as needed for systolic blood pressure greater than 160 mmHg. 5. Hyperlipidemia - Stable. Check lipid profile this admission with patient currently not on treatment. 6. Obesity; with BMI of 34 this admission - Weight loss will be recommended. Check TSH. 7. BPH - Stable. Check PSA screen in light of #1 and #2. 8. OA; with history of failed Left TKR - Noted. Give Tylenol as needed. 9. DVT prophylaxis - Lovenox 30 mg subcu daily. Total time: Approximately 55 minutes. Charges/Coding Visit Charges Inpatient E&M: 94139 Init Hosp L2
[2024-01-04] MEDS: 0.9% Normal Saline (1000mL) 1,000 ML 125 ML IV (23:07)
[2024-01-04] MEDS: 0.9% Saline Lock 10 ML Syringe IV (23:10)
[2024-01-05] VITALS (9 sets, daily range): BP systolic 123–159; BP diastolic 79–95; PULSE 88–126; RESP 14–24; TEMP 36.4–38.4; O2SAT 94–97; BMI 34.1
--- OUTSIDE RECORDS SUMMARY | 2024-01-05 00:29 | XMS RPT_ITS | CCD ---
Author Name Unknown Address [address] [place] [address] Organization [facility] Care Team Providers Care [employer] Supervisor Name Role Phone Ming Levy Attending Unavailable [...] Ina De Luna MD Primary Care Provider [phone] Prabhakar Mcleod Unavailable GERMAN BLCAKWELL Attending Unavailable INA DE LUNA Primary Care Unavailable GERMAN BLACKWELL Referring Unavailable INA DE LUNA Primary Care Unavailable GERMAN BLACKWELL Referring Unavailable GERMAN BLACKWELL Attending Unavailable Allergies Allergy Classification Reported Allergen(s) Allergy Type Date of Onset Reaction(s) Facility (5 sources) Bee Sting; Translations: [BEE STING] Allergy to substance 11-22-2014 Vomiting [facility] Medications Current Medications Medication Drug Class(es) [...] 96 mm[Hg] German Blackwell MD Work Phone: [facility] 04-22-2022 11:18-0400 Heart rate 89 /min German Blackwell MD Work Phone: [facility] 04-22-2022 11:18-0400 Systolic blood pressure 124 mm[Hg] German Blackwell MD Work Phone: [facility] Encounters Encounter Date Encounter Type Care Provider Facility Start: 09-09-2023 End: 09-09-2023 ambulatory GERMAN BLACKWELL Facility:[facility] Start: 09-09-2023 End: 09-09-2023 Patient encounter [...] Vaccine ( season) Covid-19 Vaccine ( season) [facility] Start: 11-09-2022 ADVANCE DIRECTIVE DISCUSSION ADVANCE DIRECTIVE DISCUSSION [facility] Start: 11-09-2022 DEPRESSION ASSESSMENT DEPRESSION ASS ESSMENT [facility] Start: 07-10-2022 Influenza vaccination INFLUENZA (#1) [facility] Start: 02-08-2022 COVID-19 VACCINE (4 - Booster for Moderna series) COVID-19 VACCINE (4 - Booster for Moderna series) [facility] Start: 12-05-2021 COVID-19 VACCINE (4 - Booster for Moderna series) COVID-19 VACCINE (4 - Booster for Moderna series) [facility] Start: 11-09-2021 ADVANCE DIRECTIVE DISCUSSION ADVANCE DIRECTIVE DISCUSSION [facility] Start: 11-09-2021 DEPRESSION ASSESSMENT DEPRESSION ASS ESSMENT [facility] Start: 09-30-2018 Pneumococcal Vaccine : 65+ (2 - PCV) Pneumococcal Vaccine: 65+ (2 - PCV) [facility] Start: 2007 PNEUMOCOCCAL: 65+ (1 - PCV) PNEUMOCOCCAL: 65+ (1 - PCV) [facility] Start: 2002 RSV Vaccine (1 - 1-d ose 60+ series) RSV Vaccine (1 - 1-dose 60+ series) [facility] Start: 1992 SHINGRIX VACCINE (1 of 2) SHINGRIX V ACCINE (1 of 2) [facility] Start: 1987 [facility] Start: 1987 Diabetes Screening Diabetes Screenin g [facility] Start: 1961 Urine microalbumin profile [facility] Start: 1960 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 DISEASE 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 ANNUAL PCP TEAM CHRONIC DISEASE VISIT [facility] Start: 1960 BP CONTROLLED (<130/80) BP CONTROLLE D (<130/80) [facility] Start: 1954 Adult depression screening assessment DEPRESSION SCREENING [facility] Payers Date Payer Category Payer Unknown 2016 Medicare [place] [employer] MOSESS SUPPLEMENT [id number] 2016-Present [phone] [place], [place] [address], [place] [address] Medicare [id number] 2007 Medicare [id number] 2007 Medicare 2007 Medicare MEDICARE MEDICAR E A AND B [id number] 2007-Present [phone] [address] [address] [place] [address] Medicare [id number] 1942 Unknown [id number] 1942 Unknown [id number] 1942 Unknown [id number] 1942 Unknown [id number] 1942 Unknown [id number] 1942 Unknown [id number] 1942 Unknown [id number] Medicare [id number] Unknown [id number] Social History Date Type Detail Facility Start: 11-22-2014 End: 11-04-2018 Tobacco smoking status VTIS Never smoked tobacco [facility] Start: 11-22-2014 End: 11-04-2018 Tobacco use and exposure Smokeless tobacco non-user [facility] Start: 04-22-2022 End: 09-09-2023 Alcohol intake Ex-drinker (finding) [facility] Start: 1940 Sex Assigned At Not on file [facility] Start: 04-12-2022 End: 08-29-2022 Exposure to SARS-CoV-2 (event) Not sure [facility] Start: 09-09-2023 History of Social function [facility] Start: 09-09-2023 Tobacco use panel [facility] National Score (1-10 0), lower number is lower risk 59 [facility] Clinical Notes 03-22-2021 to 09-09-2023 Patient InstructionsGerman Blackwell MD - 09/09/2023 9:43 AM EDTPatient InstructionsMojevon Blackwell MD - 03/09/2023 9:10 AM EDT Note Date & Type Note Facility 09-09-2023 Note HNO ID: [id number] Author: German Blackwell MD Service: ? Author [...] diagnosis, and treatment options. German Blackwell MD [facility] 09-09-2023 Instructions German Blackwell MD - 09/09/2023 10:30 AM EDT If you have any questions please contact our office at [phone]. After office hours or on the weekend, please call Dr. Blackwell on his cell phone at [phone]. documented in this encounter [facility] 09-09-2023 History of Present illness Narrative [...] German Blackwell MD documented in this encounter [facility] 03-09-2023 Note HNO ID: [id number] Author: German Blackwell MD Service: ? Author [...] diagnosis, and treatment options. German Blackwell MD [facility] 03-09-2023 Instructions German Blackwell MD [...] any questions please contact our office at [phone]. After office hours or on the weekend, please call Dr. Blackwell on his cell phone at [phone]. documented in this encounter [facility] 03-09-2023 History of Present illness Narrative [...] German Blackwell MD documented in this encounter [facility] documented as of this encounter (statuses as of 09/09/2023) [facility]10-21-2022 History of Present illness Narrative* German [...] diagnosis, and treatment options. [facility] Instructions* Patient Instructions* German Blackwell MD - 04/22/2022 11:33 AM EDT If you have any questions please contact our office at [phone]. After office hours or on the weekend, please call Dr. Blackwell on his cell phone at [phone]. [facility] History of Present illness Narrative* German [...] diagnosis, and treatment options. [facility] History of Past illness Narrative* Problem Noted Date Resolved Date Optic disc hemorrhage, right 01/28/202102/2021 Glaucoma suspect of both eyes 12/14/2020 Optic disc hemorrhage, left 12/14/2020 1002/2021 Dry eye 09/11/2015 09/11/2016 Pseudophakia, both eyes 11/22/2014 09/11/20 16 documented as of this encounter (statuses as of 04/22/2022) [facility] History of Past illness Narrative* Problem Noted Date Resolved Date Normal tension glaucoma of both eyes, mild stage 01/28/2021 08/29/2022 Optic disc hemorrhage, right 01/28/202102/2021 Glaucoma suspect of both eyes 12/14/2020 Optic disc hemorrhage, left 12/14/20200 02/2021 Dry eye 09/11/2015 09/11/2016 Pseudophakia, both eyes 11/22/2014 09/11/20 16 documented as of this encounter (statuses as of 08/29/2022) [facility] History of Past illness Narrative* Problem Noted Date Resolved Date Normal tension glaucoma of both eyes, mild stage 01/28/2021 08/29/2022 Optic disc hemorrhage, right 01/28/202102/2021 Glaucoma suspect of both eyes 12/14/2020 Optic disc hemorrhage, left 12/14/202002/2021 Dry eye 09/11/2015 09/11/2016 Pseudophakia, both eyes 11/22/2014 09/11/20 16 documented as of this encounter (statuses as of 03/09/2023) [facility] Diagnosis Normal tension glaucoma of right eye, 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, 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 Essential hypertension Unspecified essential hypertension [facility] Diagnosis Normal tension glaucoma of right eye, 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, 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, unspecified Essential hypertension Unspecified essential hypertension [facility] Diagnosis Primary open angle glaucoma (POAG) of both eyes, moderate stage- Primary 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, unspecified Hx of LASIK Other states following surgery of eye and adnexa Pseudophakia of both eyes Lens replaced by other means Essential hypertension Unspecified essential hypertension [facility] Diagnosis Primary open angle glaucoma (POAG) of both eyes, moderate stage- Primary 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, unspecified Essential hypertension Unspecified essential hypertension documented in this encounter [facility] Summary Purpose Family History No Family [...] DATE CREATED AUTHOR AUTHOR'S ORGANIZ ATION 12/28/2018 [facility] DATE CREATED AUTHOR AUTHOR'S ORGANIZ ATION 11/20/2019 [facility] DATE CREATED AUTHOR AUTHOR'S ORGANIZ ATION 12/14/2019 [facility] [employer] DATE CREATED AUTHOR AUTHOR'S ORGANIZ ATION 09/14/2022 [facility] DATE CREATED AUTHOR AUTHOR'S ORGANIZ ATION 09/10/2023 [facility] Source Comments (unrecognize d section and content) In the event this informatio n is protected by the Federal Confidentiality of Alcohol and Drug Abuse Patient Records regulations: The Federal rules restrict any use of the information to criminally investigate or prosecute any alcohol or drug abuse patient.[facility] the event this information is protected by the Federal Confidentiality of Alcohol and Drug Abuse Patient Records regulations: The Federal rules restrict any use of the information to criminally investigate or prosecute any alcohol or drug abuse patient.[facility] the event this information is protected by the Federal Confidentiality of Alcohol and Drug Abuse Patient Records regulations: The Federal rules restrict any use of the information to criminally investigate or prosecute any alcohol or drug abuse patient.[facility] the event this information is protected by the Federal Confidentiality of Alcohol and Drug Abuse Patient Records regulations: The Federal rules restrict any use of the information to criminally investigate or prosecute any alcohol or drug abuse patient.[facility] Reason for Visit (unrecogniz ed section and content) Reason Comments Normal Tension Glaucoma Follow Up Reason Comments Glaucoma Follow Up Both eyes Pseudophakia Both eyes Reason Comments Primary Open Angle Glaucoma Follow Up Blurred Vision Left Eye Part of vision, intermittent Foreign Body Sensation Left eye, tempora l corner, intermittent Care Teams (unrecognized sec tion and content) [employer] Supervisor Relationship Specialty Start Date End Date Ina De Luna PCP - General Family Medicine 07/21/12 [employer] Supervisor Relationship Specialty Start Date End Date Ina eD Luna PCP - General Family Medicine 07/21/12 [employer] Supervisor Relationship Specialty Start Date End Date Ina De Luna MD PCP - General Family Medicine 07/21/12 Prabhakar Mcleod [address] [address] Optometry 09/09/23 FOR RECORDS PERTAINING [...] BE BASED ON THE PRIMARY CLINICAL RECORDS. [facility] [employer] [facility]. provides no warranty or guarantee of the accuracy or completeness of information in this document.
--- OUTSIDE RECORDS SUMMARY | 2024-01-05 00:29 | XMS RPT_ITS | CCD ---
Author Name Unknown Address [address] [place] [address] Organization [facility] Care Team Providers Care Thermite [employer]er Name Role Phone Ming Levy Attending Unavailable [...] MD Primary Care Provider Prabhakar Mcleod Unavailable [phone] GERMAN BLACKWELL Attending Unavailable INA DE LUNA Primary Care Unavailable GERMAN BLACKWELL Referring Unavailable INA DE LUNA Primary Care Unavailable GERMAN BLACKWELL Referring Unavailable GERMAN BLACKWELL Attending Unavailable Allergies Allergy Classification Reported Allergen(s) Allergy Type Date of Onset Reaction(s) Facility (5 sources) Bee Sting; Translations: [BEE STING] Allergy to substance 11-22-2014 Vomiting [facility] Medications Current Medications Medication Drug Class(es) Dates [...] 96 mm[Hg] German Blackwell MD Work Phone: [facility] 04-22-2022 11:18-0400 Heart rate 89 /min German Blackwell MD Work Phone: [facility] 04-22-2022 11:18-0400 Systolic blood pressure 124 mm[Hg] German Blackwell MD Work Phone: [facility] Encounters Encounter Date Encounter Type Care Provider Facility Start: 09-09-2023 End: 09-09-2023 ambulatory GERMAN BLACKWELL Facility:[facility] Start: 09-09-2023 End: 09-09-2023 Patient encounter [...] Vaccine ( season) Covid-19 Vaccine ( season) [facility] Start: 11-09-2022 ADVANCE DIRECTIVE DISCUSSION ADVANCE DIRECTIVE DISCUSSION [facility] Start: 11-09-2022 DEPRESSION ASSESSMENT DEPRESSION ASS ESSMENT [facility] Start: 07-10-2022 Influenza vaccination INFLUENZA (#1) [facility] Start: 02-08-2022 COVID-19 VACCINE (4 - Booster for Moderna series) COVID-19 VACCINE (4 - Booster for Moderna series) [facility] Start: 12-05-2021 COVID-19 VACCINE (4 - Booster for Moderna series) COVID-19 VACCINE (4 - Booster for Moderna series) [facility] Start: 11-09-2021 ADVANCE DIRECTIVE DISCUSSION ADVANCE DIRECTIVE DISCUSSION [facility] Start: 11-09-2021 DEPRESSION ASSESSMENT DEPRESSION ASS ESSMENT [facility] Start: 09-30-2018 Pneumococcal Vaccine : 65+ (2 - PCV) Pneumococcal Vaccine: 65+ (2 - PCV) [facility] Start: 2007 PNEUMOCOCCAL: 65+ (1 - PCV) PNEUMOCOCCAL: 65+ (1 - PCV) [facility] Start: 2002 RSV Vaccine (1 - 1-d ose 60+ series) RSV Vaccine (1 - 1-dose 60+ series) [facility] Start: 1992 SHINGRIX VACCINE (1 of 2) SHINGRIX V ACCINE (1 of 2) [facility] Start: 1987 DIABETES SCREEN DIABETES SCREEN [facility] Start: 1987 Diabetes Screening Diabetes Screenin g [facility] Start: 1961 Urine microalbumin profile [facility] Start: 1960 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 ANNUAL PCP TEAM CHRONIC DISEASE VISIT [facility] Start: 1960 BP CONTROLLED (<130/80) BP CONTROLLE D (<130/80) [facility] Start: 1954 Adult depression screening assessment DEPRESSION SCREENING [facility] Payers Date Payer Category Payer Unknown 2016 Medicare [place] [employer]IA MOSESS SUPPLEMENT [id number] 2016-Present [phone] [place], [place] [address] [address] Medicare [id number] 2007 Medicare [id number] 2007 Medicare 2007 Medicare MEDICARE MEDICAR E A AND B [id number] 2007-Present [phone] [address] [address] [place] [address] Medicare [id number] 1942 Unknown [id number] 1942 Unknown [id number] 1942 Unknown [id number] 1942 Unknown [id number] 1942 Unknown [id number] 1942 Unknown [id number] 1942 Unknown [id number] Medicare [id number] Unknown [id number] Social History Date Type Detail Facility Start: 11-22-2014 End: 11-04-2018 Tobacco smoking status PAIS Never smoked tobacco [facility] Start: 11-22-2014 End: 11-04-2018 Tobacco use and exposure Smokeless tobacco non-user [facility] Start: 04-22-2022 End: 09-09-2023 Alcohol intake Ex-drinker (finding) [facility] Start: 1940 Sex Assigned At Not on file [facility] Start: 04-12-2022 End: 08-29-2022 Exposure to SARS-CoV-2 (event) Not sure [facility] Start: 09-09-2023 History of Social function [facility] Start: 09-09-2023 Tobacco use panel [facility] National Score (1-10 0), lower number is lower risk 59 [facility] Clinical Notes 03-22-2021 to 09-09-2023 Patient InstructionsGerman Blackwell MD - 09/09/2023 9:43 AM EDTPatient InstructionsMojevon Blackwell MD - 03/09/2023 9:10 AM EDT Note Date & Type Note Facility 09-09-2023 Note HNO ID: [id number] Author: German Blackwell MD Service: ? Author [...] diagnosis, and treatment options. German Blackwell MD [facility] 09-09-2023 Instructions German Blackwell MD - 09/09/2023 10:30 AM EDT If you have any questions please contact our office at [phone]. After office hours or on the weekend, please call Dr. Blackwell on his cell phone at [phone]. documented in this encounter [facility] 09-09-2023 History of Present illness Narrative ASSESSMENT/PLAN: [...] German Blackwell MD documented in this encounter [facility] 03-09-2023 Note HNO ID: [id number] Author: German Blackwell MD Service: ? Author [...] diagnosis, and treatment options. German Blackwell MD [facility] 03-09-2023 Instructions German Blackwell MD [...] any questions please contact our office at [phone]. After office hours or on the weekend, please call Dr. Blackwell on his cell phone at [phone]. documented in this encounter [facility] 03-09-2023 History of Present illness Narrative ASSESSMENT/PLAN: [...] German Blackwell MD documented in this encounter [facility] documented as of this encounter (statuses as of 09/09/2023) [facility]20[facility] History of Present illness Narrative* German Blackwell [...] diagnosis, and treatment options. [facility] Instructions* Patient Instructions* German Blackwell MD - 04/22/2022 11:33 AM EDT If you have any questions please contact our office at [phone]. After office hours or on the weekend, please call Dr. Blackwell on his cell phone at [phone]. [facility] History of Present illness Narrative* German Blackwell [...] today's exam. Recommend patient seeing Dr. De uLna for further evaluation. German Blackwell MD I [...] diagnosis, and treatment options. [facility] History of Past illness Narrative* Problem Noted Date Resolved Date Optic disc hemorrhage, right 01/28/202102/2021 Glaucoma suspect of both eyes 12/14/2020 Optic disc hemorrhage, left 12/14/2020 1002/2021 Dry eye 09/11/2015 09/11/2016 Pseudophakia, both eyes 11/22/2014 09/11/20 16 documented as of this encounter (statuses as of 04/22/2022) [facility] History of Past illness Narrative* Problem Noted Date Resolved Date Normal tension glaucoma of both eyes, mild stage 01/28/2021 08/29/2022 Optic disc hemorrhage, right 01/28/202102/2021 Glaucoma suspect of both eyes 12/14/2020 Optic disc hemorrhage, left 12/14/20200 02/2021 Dry eye 09/11/2015 09/11/2016 Pseudophakia, both eyes 11/22/2014 09/11/20 16 documented as of this encounter (statuses as of 08/29/2022) [facility] History of Past illness Narrative* Problem Noted Date Resolved Date Normal tension glaucoma of both eyes, mild stage 01/28/2021 08/29/2022 Optic disc hemorrhage, right 01/28/202102/2021 Glaucoma suspect of both eyes 12/14/2020 Optic disc hemorrhage, left 12/14/202002/2021 Dry eye 09/11/2015 09/11/2016 Pseudophakia, both eyes 11/22/2014 09/11/20 16 documented as of this encounter (statuses as of 03/09/2023) [facility] Normal tension glaucoma of right eye, 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, 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 Essential hypertension Unspecified essential hypertension [facility] Diagnosis Normal tension glaucoma of right eye, 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, 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, unspecified Essential hypertension Unspecified essential hypertension [facility] Diagnosis Primary open angle glaucoma (POAG) of both eyes, moderate stage- Primary 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, unspecified Hx of LASIK Other states following surgery of eye and adnexa Pseudophakia of both eyes Lens replaced by other means Essential hypertension Unspecified essential hypertension [facility] Diagnosis Primary open angle glaucoma (POAG) of both eyes, moderate stage- Primary 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, unspecified Essential hypertension Unspecified essential hypertension documented in this encounter [facility] Summary Purpose Family History No Family History [...] DATE CREATED AUTHOR AUTHOR'S ORGANIZ ATION 12/28/2018 [facility] DATE CREATED AUTHOR AUTHOR'S ORGANIZ ATION 11/20/2019 [facility] DATE CREATED AUTHOR AUTHOR'S ORGANIZ ATION 12/14/2019 [employer] DATE CREATED AUTHOR AUTHOR'S ORGANIZ ATION 09/14/2022 [facility] DATE CREATED AUTHOR AUTHOR'S ORGANIZ ATION 09/10/2023 [facility] Source Comments (unrecognize d section and content) In the event this informatio n is protected by the Federal Confidentiality of Alcohol and Drug Abuse Patient Records regulations: The Federal rules restrict any use of the information to criminally investigate or prosecute any alcohol or drug abuse patient.[facility] the event this information is protected by the Federal Confidentiality of Alcohol and Drug Abuse Patient Records regulations: The Federal rules restrict any use of the information to criminally investigate or prosecute any alcohol or drug abuse patient.[facility] the event this information is protected by the Federal Confidentiality of Alcohol and Drug Abuse Patient Records regulations: The Federal rules restrict any use of the information to criminally investigate or prosecute any alcohol or drug abuse patient.[facility] the event this information is protected by the Federal Confidentiality of Alcohol and Drug Abuse Patient Records regulations: The Federal rules restrict any use of the information to criminally investigate or prosecute any alcohol or drug abuse patient.[facility] Reason for Visit (unrecogniz ed section and content) Reason Comments Normal Tension Glaucoma Follow Up Reason Comments Glaucoma Follow Up Both eyes Pseudophakia Both eyes Reason Comments Primary Open Angle Glaucoma Follow Up Blurred Vision Left Eye Part of vision, intermittent Foreign Body Sensation Left eye, tempora l corner, intermittent Care Teams (unrecognized sec tion and content) [employer]mite [employer] Loader Relationship Specialty Start Date End Date Ina De Luna PCP - General Family Medicine 07/21/12 Thermite [employer] Loader Relationship Specialty Start Date End Date Ina De Luna PCP - General Family Medicine 07/21/12 Thermite [employer] Loader Relationship Specialty Start Date End Date Ina De Luna MD PCP - General Family Medicine 07/21/12 Prabhakar Mcleod [address] [address] Optometry 09/09/23 FOR RECORDS PERTAINING [...] BE BASED ON THE PRIMARY CLINICAL RECORDS. [facility] [employer] [facility]. provides no warranty or guarantee of the accuracy or completeness of information in this document.
--- OUTSIDE RECORDS SUMMARY | 2024-01-05 00:30 | XMS RPT_ITS | CCD ---
Author Name Unknown Address [address] [place] [address] Organization [facility] Care Team Providers Care Emt Name Role Phone Ming Levy Attending Unavailable [...] [BEE STING] Allergy to substance 11-22-2014 Vomiting [facility] Medications Current Medications Medication Drug Class(es) [...] 96 mm[Hg] German Blackwell MD Work Phone: [facility] 04-22-2022 11:18-0400 Heart rate 89 /min German Blackwell MD Work Phone: [facility] 04-22-2022 11:18-0400 Systolic blood pressure 124 mm[Hg] German Blackwell MD Work Phone: [facility] Encounters Encounter Date Encounter Type Care Provider Facility Start: 09-09-2023 End: 09-09-2023 ambulatory GERMAN BLACKWELL Facility:[facility] Start: 09-09-2023 End: 09-09-2023 Patient [...] Vaccine ( season) Covid-19 Vaccine ( season) [facility] Start: 11-09-2022 ADVANCE DIRECTIVE DISCUSSION ADVANCE DIRECTIVE DISCUSSION [facility] Start: 11-09-2022 DEPRESSION ASSESSMENT DEPRESSION ASS ESSMENT [facility] Start: 07-10-2022 Influenza vaccination INFLUENZA (#1) [facility] Start: 02-08-2022 COVID-19 VACCINE (4 - Booster for Moderna series) COVID-19 VACCINE (4 - Booster for Moderna series) [facility] Start: 12-05-2021 COVID-19 VACCINE (4 - Booster for Moderna series) COVID-19 VACCINE (4 - Booster for Moderna series) [facility] Start: 11-09-2021 ADVANCE DIRECTIVE DISCUSSION ADVANCE DIRECTIVE DISCUSSION [facility] Start: 11-09-2021 DEPRESSION ASSESSMENT DEPRESSION ASS ESSMENT [facility] Start: 09-30-2018 Pneumococcal Vaccine : 65+ (2 - PCV) Pneumococcal Vaccine: 65+ (2 - PCV) [facility] Start: 2007 PNEUMOCOCCAL: 65+ (1 - PCV) PNEUMOCOCCAL: 65+ (1 - PCV) [facility] Start: 2002 RSV Vaccine (1 - 1-d ose 60+ series) RSV Vaccine (1 - 1-dose 60+ series) [facility] Start: 1992 SHINGRIX VACCINE (1 of 2) SHINGRIX V ACCINE (1 of 2) [facility] Start: 1987 [facility] Start: 1987 Diabetes Screening Diabetes Screenin g [facility] Start: 1961 Urine microalbumin profile [facility] Start: 1960 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 2007 Medicare [id number] 2007 Medicare 2007 Medicare MEDICARE MEDICAR E A AND B [id number] 2007-Present [phone] [address] [address] [place] [address] Medicare [id number] 1942 Unknown [id number] 1942 Unknown [id number] 1942 Unknown [id number] 1942 Unknown [id number] 1942 Unknown [id number] 1942 Unknown [id number] 1942 Unknown [id number] Medicare [id number] Unknown [id number] Social History Date Type Detail Facility Start: 11-22-2014 End: 11-04-2018 Tobacco smoking status RIIS Never smoked tobacco [facility] Start: 11-22-2014 End: 11-04-2018 Tobacco use and exposure Smokeless tobacco non-user [facility] Start: 04-22-2022 End: 09-09-2023 Alcohol intake Ex-drinker (finding) [facility] Start: 1940 Sex Assigned At Not on file [facility] Start: 04-12-2022 End: 08-29-2022 Exposure to SARS-CoV-2 (event) Not sure [facility] Start: 09-09-2023 History of Social function [facility] Start: 09-09-2023 Tobacco use panel [facility] National Score (1-10 0), lower number is lower risk 59 [facility] Clinical Notes 03-22-2021 to 09-09-2023 Patient InstructionsGerman Blackwell MD - 09/09/2023 9:43 AM EDTPatient InstructionsMojevon Blackwell MD - 03/09/2023 9:10 AM EDT Note Date & Type Note Facility 09-09-2023 Note HNO ID: [id number] Author: German Blackwell MD Service: ? Author [...] diagnosis, and treatment options. German Blackwell MD [facility] 09-09-2023 Instructions German Blackwell MD - 09/09/2023 10:30 AM EDT If you have any questions please contact our office at [phone]. After office hours or on the weekend, please call Dr. Blackwell on his cell phone at [phone]. documented in this encounter [facility] 09-09-2023 History of Present illness Narrative [...] German Blackwell MD documented in this encounter [facility] 03-09-2023 Note HNO ID: [id number] Author: German Blackwell MD Service: ? Author [...] diagnosis, and treatment options. German Blackwell MD [facility] 03-09-2023 Instructions German Blackwell MD - [...] any questions please contact our office at [phone]. After office hours or on the weekend, please call Dr. Blackwell on his cell phone at [phone]. documented in this encounter [facility] 03-09-2023 History of Present illness Narrative [...] German Blackwell MD documented in this encounter [facility] documented as of this encounter (statuses as of 09/09/2023) [facility]10-21-2022 History of Present illness Narrative* German [...] diagnosis, and treatment options. [facility] Inst[facility]* Patient Instructions* German Blackwell MD - 04/22/2022 11:33 AM EDT If you have any questions please contact our office at [phone]. After office hours or on the weekend, please call Dr. Blackwell on his cell phone at [phone]. [facility] History of Present illness Narrative* German [...] diagnosis, and treatment options. [facility] History of Past illness Narrative* Problem Noted Date Resolved Date Optic disc hemorrhage, right 01/28/202102/2021 Glaucoma suspect of both eyes 12/14/2020 Optic disc hemorrhage, left 12/14/2020 1002/2021 Dry eye 09/11/2015 09/11/2016 Pseudophakia, both eyes 11/22/2014 09/11/20 16 documented as of this encounter (statuses as of 04/22/2022) [facility] History of Past illness Narrative* Problem Noted Date Resolved Date Normal tension glaucoma of both eyes, mild stage 01/28/2021 08/29/2022 Optic disc hemorrhage, right 01/28/202102/2021 Glaucoma suspect of both eyes 12/14/2020 Optic disc hemorrhage, left 12/14/20200 02/2021 Dry eye 09/11/2015 09/11/2016 Pseudophakia, both eyes 11/22/2014 09/11/20 16 documented as of this encounter (statuses as of 08/29/2022) [facility] History of Past illness Narrative* Problem Noted Date Resolved Date Normal tension glaucoma of both eyes, mild stage 01/28/2021 08/29/2022 Optic disc hemorrhage, right 01/28/202102/2021 Glaucoma suspect of both eyes 12/14/2020 Optic disc hemorrhage, left 12/14/202002/2021 Dry eye 09/11/2015 09/11/2016 Pseudophakia, both eyes 11/22/2014 09/11/20 16 documented as of this encounter (statuses as of 03/09/2023) [facility] Diagnosis Normal tension glaucoma of right eye, 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, 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 Essential hypertension Unspecified essential hypertension [facility] Diagnosis Normal tension glaucoma of right eye, 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, 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, unspecified Essential hypertension Unspecified essential hypertension [facility] Diagnosis Primary open angle glaucoma (POAG) of both eyes, moderate stage- Primary 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, unspecified Hx of LASIK Other states following surgery of eye and adnexa Pseudophakia of both eyes Lens replaced by other means Essential hypertension Unspecified essential hypertension [facility] Diagnosis Primary open angle glaucoma (POAG) of both eyes, moderate stage- Primary 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, unspecified Essential hypertension Unspecified essential hypertension documented in this encounter [facility] Summary Purpose Family History No Family [...] DATE CREATED AUTHOR AUTHOR'S ORGANIZ ATION 12/28/2018 [facility] DATE CREATED AUTHOR AUTHOR'S ORGANIZ ATION 11/20/2019 [facility] DATE CREATED AUTHOR AUTHOR'S ORGANIZ ATION 12/14/2019 [employer] DATE CREATED AUTHOR AUTHOR'S ORGANIZ ATION 09/14/2022 [facility] DATE CREATED AUTHOR AUTHOR'S ORGANIZ ATION 09/10/2023 [facility] Source Comments (unrecognize d section and content) In the event this informatio n is protected by the Federal Confidentiality of Alcohol and Drug Abuse Patient Records regulations: The Federal rules restrict any use of the information to criminally investigate or prosecute any alcohol or drug abuse patient.[facility] the event this information is protected by the Federal Confidentiality of Alcohol and Drug Abuse Patient Records regulations: The Federal rules restrict any use of the information to criminally investigate or prosecute any alcohol or drug abuse patient.[facility] the event this information is protected by the Federal Confidentiality of Alcohol and Drug Abuse Patient Records regulations: The Federal rules restrict any use of the information to criminally investigate or prosecute any alcohol or drug abuse patient.[facility] the event this information is protected by the Federal Confidentiality of Alcohol and Drug Abuse Patient Records regulations: The Federal rules restrict any use of the information to criminally investigate or prosecute any alcohol or drug abuse patient.[facility] Reason for Visit (unrecogniz ed section and content) Reason Comments Normal Tension Glaucoma Follow Up Reason Comments Glaucoma Follow Up Both eyes Pseudophakia Both eyes Reason Comments Primary Open Angle Glaucoma Follow Up Blurred Vision Left Eye Part of vision, intermittent Foreign Body Sensation Left eye, tempora l corner, intermittent Care Teams (unrecognized sec tion and content) Emt Relationship Specialty Start Date End Date Ina De Luna PCP - General Family Medicine 07/21/12 Emt Relationship Specialty Start Date End Date Ina De Luna PCP - General Family Medicine 07/21/12 Emt Relationship Specialty Start Date End Date Ina De Luna MD PCP - General Family Medicine 07/21/12 Prabhakar Mcleod [address] [address] Optometry 09/09/23 FOR RECORDS PERTAINING [...] BE BASED ON THE PRIMARY CLINICAL RECORDS. [facility]. provides no warranty or guarantee of the accuracy or completeness of information in this document.
--- OUTSIDE RECORDS SUMMARY | 2024-01-05 00:30 | XMS RPT_ITS | CCD ---
Author Name Unknown Address [address] [place] [address] Organization [facility] Care Team Providers Care Spot Billing Clerk Name Role Phone Ming Levy Attending Unavailable [...] Ina De Luna Primary Care Provider Ina eD Luna Primary Care Provider INA DE LUNA Primary Care Unavailable MYRIAM OLSEN Attending Unava ilable Ina De Luna Primary Care Provider Ina De Luna MD Primary Care Provider Prabhakar Mcleod Unavailable [phone] GERMAN BLACKWELL Attending Unavailable INA DE LUNA Primary Care Unavailable GERMAN BLACKWELL Referring Unavailable INA DE LUNA Primary Care Unavailable GERMAN BLACKWELL Referring Unavailable GERMAN BLACKWELL Attending Unavailable Allergies Allergy Classification Reported Allergen(s) Allergy Type Date of Onset Reaction(s) Facility (5 sources) Bee Sting; Translations: [BEE STING] Allergy to substance 11-22-[address] [facility] Medications Current Medications Medication Drug Class(es) [...] 96 mm[Hg] German Blackwell MD Work Phone: [facility] 04-22-2022 11:18-0400 Heart rate 89 /min German Blackwell MD Work Phone: [facility] 04-22-2022 11:18-0400 Systolic blood pressure 124 mm[Hg] German Blackwell MD Work Phone: [facility] Encounters Encounter Date Encounter Type Care Provider Facility Start: 09-09-2023 End: 09-09-2023 ambulatory GERMAN BLACKWELL Facility:[facility] Start: 09-09-2023 End: 09-09-2023 Patient encounter [...] Vaccine ( season) Covid-19 Vaccine ( season) [facility] Start: 11-09-2022 ADVANCE DIRECTIVE DISCUSSION ADVANCE DIRECTIVE DISCUSSION [facility] Start: 11-09-2022 DEPRESSION ASSESSMENT DEPRESSION ASS ESSMENT [facility] Start: 07-10-2022 Influenza vaccination INFLUENZA (#1) [facility] Start: 02-08-2022 COVID-19 VACCINE (4 - Booster for Moderna series) COVID-19 VACCINE (4 - Booster for Moderna series) [facility] Start: 12-05-2021 COVID-19 VACCINE (4 - Booster for Moderna series) COVID-19 VACCINE (4 - Booster for Moderna series) [facility] Start: 11-09-2021 ADVANCE DIRECTIVE DISCUSSION ADVANCE DIRECTIVE DISCUSSION [facility] Start: 11-09-2021 DEPRESSION ASSESSMENT DEPRESSION ASS ESSMENT [facility] Start: 09-30-2018 Pneumococcal Vaccine : 65+ (2 - PCV) Pneumococcal Vaccine: 65+ (2 - PCV) [facility] Start: 2007 PNEUMOCOCCAL: 65+ (1 - PCV) PNEUMOCOCCAL: 65+ (1 - PCV) [facility] Start: 2002 RSV Vaccine (1 - 1-d ose 60+ series) RSV Vaccine (1 - 1-dose 60+ series) [facility] Start: 1992 SHINGRIX VACCINE (1 of 2) SHINGRIX V ACCINE (1 of 2) [facility] Start: 1987 [address]ET[facility] [facility] Start: 1987 Diabetes Screening Diabetes Screenin g [facility] Start: [address] 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 Start: 1960 BP CONTROLLED (<130/80) BP CONTROLLE D (<130/80) [facility] Start: 1954 Adult depression screening assessment DEPRESSION SCREENING [facility] Payers Date Payer Category Payer Unknown 2016 Medicare [employer] [employer] FUND VELIA MOSESS SUPPLEMENT [id number] 2016-Present [phone] [place], [place] [address] [address] Medicare [id number] 2007 Medicare [id number] 2007 Medicare 2007 Medicare MEDICARE MEDICAR E A AND B [id number] 2007-Present [phone] [address] [address] [place] [address] Medicare [id number] 1942 Unknown [id number] 1942 Unknown [id number] 1942 Unknown [id number] 1942 Unknown [id number] 1942 Unknown [id number] 1942 Unknown [id number] 1942 Unknown [id number] Medicare [id number] Unknown [id number] Social History Date Type Detail Facility Start: 11-22-2014 End: 11-04-2018 Tobacco smoking status RIIS Never smoked tobacco [facility] Start: 11-22-2014 End: 11-04-2018 Tobacco use and exposure Smokeless tobacco non-user [facility] Start: 04-22-2022 End: 09-09-2023 Alcohol intake Ex-drinker (finding) [facility] Start: 1942 Sex Assigned At Not on file [facility] Start: 04-12-2022 End: 08-29-2022 Exposure to SARS-CoV-2 (event) Not sure [facility] Start: 09-09-2023 History of Social function [facility] Start: 09-09-2023 Tobacco use panel [facility] National Score (1-10 0), lower number is lower risk [address] [facility] Clinical Notes 03-22-2021 to 09-09-2023 Patient InstructionsGerman Blackwell MD - 09/09/2023 9:43 AM EDTPatient InstructionsMojevon Blackwell MD - 03/09/2023 9:10 AM EDT Note Date & Type Note Facility 09-09-2023 Note HNO ID: [id number] Author: German Blackwell MD Service: ? Author [...] diagnosis, and treatment options. German Blackwell MD [facility] 09-09-2023 Instructions German Blackwell MD - 09/09/2023 10:30 AM EDT If you have any questions please contact our office at [phone]. After office hours or on the weekend, please call Dr. Blackwell on his cell phone at [phone]. documented in this encounter [facility] 09-09-2023 History of Present illness Narrative [...] German Blackwell MD documented in this encounter [facility] 03-09-2023 Note HNO ID: [id number] Author: German Blackwell MD Service: ? Author [...] diagnosis, and treatment options. German Blackwell MD [facility] 03-09-2023 Instructions German Blackwell MD - [...] any questions please contact our office at [phone]. After office hours or on the weekend, please call Dr. Blackwell on his cell phone at [phone]. documented in this encounter [facility] 03-09-2023 History of Present illness Narrative [...] German Blackwell MD documented in this encounter [facility] documented as of this encounter (statuses as of 09/09/2023) [facility] History of Present illness Narrative* German [...] diagnosis, and treatment options. [facility] Instructions* Patient Instructions* German Blackwell MD - 04/22/2022 11:33 AM EDT If you have any questions please contact our office at [phone]. After office hours or on the weekend, please call Dr. Blackwell on his cell phone at [phone]. [facility] History of Present illness Narrative* German [...] diagnosis, and treatment options. [facility] History of Past illness Narrative* Problem Noted Date Resolved Date Optic disc hemorrhage, right 01/28/202102/2021 Glaucoma suspect of both eyes 12/14/2020 Optic disc hemorrhage, left 12/14/2020 1002/2021 Dry eye 09/11/2015 09/11/2016 Pseudophakia, both eyes 11/22/2014 09/11/20 16 documented as of this encounter (statuses as of 04/22/2022) [facility] History of Past illness Narrative* Problem Noted Date Resolved Date Normal tension glaucoma of both eyes, mild stage 01/28/2021 08/29/2022 Optic disc hemorrhage, right 01/28/202102/2021 Glaucoma suspect of both eyes 12/14/2020 Optic disc hemorrhage, left 12/14/20200 02/2021 Dry eye 09/11/2015 09/11/2016 Pseudophakia, both eyes 11/22/2014 09/11/20 16 documented as of this encounter (statuses as of 08/29/2022) [facility] History of Past illness Narrative* Problem Noted Date Resolved Date Normal tension glaucoma of both eyes, mild stage 01/28/2021 08/29/2022 Optic disc hemorrhage, right 01/28/202102/2021 Glaucoma suspect of both eyes 12/14/2020 Optic disc hemorrhage, left 12/14/202002/2021 Dry eye 09/11/2015 09/11/2016 Pseudophakia, both eyes 11/22/2014 09/11/20 16 documented as of this encounter (statuses as of 03/09/2023) 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 Summary Purpose Family History No Family [...] DATE CREATED AUTHOR AUTHOR'S ORGANIZ ATION 12/28/2018 [facility] DATE CREATED AUTHOR AUTHOR'S ORGANIZ ATION 11/20/2019 [facility] DATE CREATED AUTHOR AUTHOR'S ORGANIZ ATION 12/14/2019 [email or web address] DATE CREATED AUTHOR AUTHOR'S ORGANIZ ATION 09/14/2022 [facility] DATE CREATED AUTHOR AUTHOR'S ORGANIZ ATION 09/10/2023 [facility] Source Comments (unrecognize d section and content) In the event this informatio n is protected by the Federal Confidentiality of Alcohol and Drug Abuse Patient Records regulations: The Federal rules restrict any use of the information to criminally investigate or prosecute any alcohol or drug abuse patient.[facility] the event this information is protected by the Federal Confidentiality of Alcohol and Drug Abuse Patient Records regulations: The Federal rules restrict any use of the information to criminally investigate or prosecute any alcohol or drug abuse patient.[facility] the event this information is protected by the Federal Confidentiality of Alcohol and Drug Abuse Patient Records regulations: The Federal rules restrict any use of the information to criminally investigate or prosecute any alcohol or drug abuse patient.[facility] the event this information is protected by the Federal Confidentiality of Alcohol and Drug Abuse Patient Records regulations: The Federal rules restrict any use of the information to criminally investigate or prosecute any alcohol or drug abuse patient.[facility] Reason for Visit (unrecogniz ed section and content) Reason Comments Normal Tension Glaucoma Follow Up Reason Comments Glaucoma Follow Up Both eyes Pseudophakia Both eyes Reason Comments Primary Open Angle Glaucoma Follow Up Blurred Vision Left Eye Part of vision, intermittent Foreign Body Sensation Left eye, tempora l corner, intermittent Care Teams (unrecognized sec tion and content) Spot Billing Clerk Relationship Specialty Start Date End Date Ina De Luna PCP - General Family Medicine 07/21/12 Spot Billing Clerk Relationship Specialty Start Date End Date Ina De Luna PCP - General Family Medicine 07/21/12 Spot Billing Clerk Relationship Specialty Start Date End Date Ina De Luna MD PCP - General Family Medicine 07/21/12 Prabhakar Mcleod [address] [address] Optometry 09/09/23 FOR RECORDS PERTAINING [...] BE BASED ON THE PRIMARY CLINICAL RECORDS. [facility]. provides no warranty or guarantee of the accuracy or completeness of information in this document.
[2024-01-05] MEDS: Acetaminophen 325 MG Tablet 650 MG PO ×3 (02:10→16:08)
[2024-01-05] MEDS: Meropenem 1 GM in 0.9% Normal Saline (100mL Bag) 100 ML IV ×3 (03:20→21:23)
[2024-01-05 07:22] LABS: Absolute Neutrophil Count 5.6 X10^3/uL (2.0-7.7); Basophil# 0.05 X10^3/uL; Basophil% 0.7 % (0-1); Eosinophil# 0.24 X10^3/uL; Eosinophils% 3.4 % (0-5); Hematocrit 38.1 % (40-54); Hemoglobin 12.4 g/dL (13.0-16.5); Lymphocyte % 7.1 % (19-41); Mean Corp Hgb Conc 32.5 g/dL (32-36); Mean Corpuscular Hgb 28.8 pg (27.0-32.0); Mean Corpuscular Volume 88.6 fL (80-94); Mean Platelet Vol. 8.8 fl (6.2-12.0); Monocyte# 0.64 X10^3/uL; Monocyte% 9.1 % (0-10); NRBC Flagged by Analyzer 0 % (0-5); Neutrophil # 5.55 X10^3/uL (2.7-7.7); Neutrophil % 78.8 % (47-70); POSITIVE DIFFERENTIAL YES; Platelet Count 208 K/mm3 (150-450); RBC Distribution Width CV 13.7 % (11.6-14.6)
[2024-01-05] MEDS: 0.9% Normal Saline (1000mL) 1,000 ML 125 ML IV ×3 (07:33→21:23)
--- NOTE | 2024-01-05 07:41 | PN.HOSP_ITS ---
Subjective Subjective Feels better. Objective Data Objective Data Vital Signs: Vital Signs Temp Pulse Resp BP Pulse Ox O2 Del Method 36.4 C L 88 18 123/81 H 96 Room Air 01/05/24 07:32 01/05/24 07:32 01/05/24 07:32 01/05/24 07:32 01/05/24 07:32 01/05/24 07:32 Oxygen Delivery Method Room Air Weight: 98.3 kg Body Mass Index (BMI) 32.8 Intake & Output: Intake and Output for Last 24 Hours 01/03/24 01/04/24 01/05/24 23:59 23:59 23:59 Intake Total 1050 / 1250 1320 / 1320 Output Total 150 / 150 Balance 1050 / 1250 1170 / 1170 Lab / Micro Data 01/05/24 07:08 01/05/24 07:08 Labs: Laboratory Results - last 24 hr 01/04/24 18:50: WBC 9.5, RBC 4.98, Hgb 14.6, Hct 43.6, MCV 87.6, MCH 29.3, MCHC 33.5, RDW Std Deviation 42.6, RDW Coeff of Herminio 13.5, Plt Count 277, MPV 8.8, Immature Gran % (Auto) 0.900, Neut % (Auto) 70.8 H, Lymph % (Auto) 10.1 L, Baker % (Auto) 10.7 H, Eos % (Auto) 6.7 H, Baso % (Auto) 0.8, Absolute Neuts (auto) 6.7, Absolute Lymphs (auto) 0.96, Nucleated RBC % 0, Sodium 138, Potassium 4.1, Chloride 107, Carbon Dioxide 24.0, Anion Gap 7, BUN 24 H, Creatinine 2.03 H, Estim Creat Clear Calc 32.95, Est GFR (MDRD) Af Amer 41 L, Est GFR (MDRD) Non-Af 34 L, BUN/Creatinine Ratio 11.8, Glucose 128 H, Calcium 9.6 01/04/24 19:30: Urine Color Yellow, Urine Clarity Cloudy, Urine pH 6.0, Ur Specific [place] 1.025, Urine Protein 30 H, Urine Glucose (UA) Normal, Urine Ketones 5 H, Urine Occult Blood 150 H, Urine Nitrite Positive H, Urine Bilirubin Negative, Urine Urobilinogen Normal, Ur Leukocyte Esterase 500 H, Urine RBC 0 SEEN, Urine WBC >100 SEEN, Ur Squamous Epith Cells 0 SEEN, Urine Bacteria 0 S EEN, Urine Mucus 0 SEEN 01/05/24 07:08: WBC 7.0, RBC 4.30 L, Hgb 12.4 L, Hct 38.1 L, MCV 88.6, MCH 28.8, MCHC 32.5, RDW Std Deviation 44.0 H, RDW Coeff of Herminio 13.7, Plt Count 208, MPV 8 .8, Immature Gran % (Auto) 0.900, Neut % (Auto) 78.8 H, Lymph % (Auto) 7.1 L, Baker % (Auto) 9.1, Eos % (Auto) 3.4, Baso % (Auto) 0.7, Absolute Neuts (auto) 5.6, Absolute Lymphs (auto) 0.50 L, Nucleated RBC % 0 Micro: Microbiology 01/04/24 18:50 Mucosa - Nose SARS-CoV-2, Influenza & RSV (PCR) - Final Radiography Diagnostic Testing: Radiology Impression Chest X-Ray 01/04/24 18:54 IMPRESSION: No radiographic evidence of acute cardiopulmonary disease. Electronically Signed: Tere Barton MD at 19:38 EST , Physical Exam Const alert and no apparent distress HEENT head/scalp atraumatic Cardio regular rate, regular rhythm, S1 normal heart sound and S2 normal heart sound GI normal to inspection, nondistended, normoactive bowel sounds, soft to palpation, non-tender and non-distended Extremity normal to inspection Neuro Sensorium / Orientation: awake and alert Assessment & Plan Assessment/Plan (1) Acute cystitis without hematuria: (2) BPH (benign prostatic hyperplasia): QUALIFIERS: Lower urinary tract symptom detail: unspecified Lower urinary tract symptom presence: symptoms present Qualified Code(s): N40.1 - Benign prostatic hyperplasia with lower urinary tract symptoms (3) Generalized weakness: PLAN: Plan UTI * Previously has had E. coli that was pansensitive back in November. Patient had received ceftriaxone in the switched over to meropenem as patient is still having fevers. I do not feel that that was necessarily a failure of the ceftriaxone. Will continue with the meropenem for now and wait on final results of urine culture. * Patient does have a history of catheters and self catheterizations, however, patient has not had need of a catheter nor self-catheterization in about 3 weeks, therefore, this is not a CAUTI Acute kidney injury ruled out. Creatinine was 2.03 with a baseline of 1.61. This does not substantiate the diagnosis of acute kidney injury. Debility * secondary to urinary tract infection. * PT OT evaluate and treat. Chronic conditions: * Essential hypertension - Hold scheduled antihypertensives until volume status is corrected. Give IV hydralazine as needed for systolic blood pressure greater than 160 mmHg. * Hyperlipidemia - Stable. Check lipid profile this admission with patient currently not on treatment. * Obesity; with BMI of 34 this admission - Weight loss will be recommended. Check TSH. * BPH - Stable. Check PSA screen in light of #1 and #2. * OA; with history of failed Left TKR - Noted. Give Tylenol as needed. DVT prophylaxis - Lovenox 30 mg subcu daily. Charges/Coding Visit Charges Inpatient E&M: 16231 Subs Hosp L2
[2024-01-05 07:47] LABS: Phosphorus 3.8 mg/dL (2.5-4.9)
[2024-01-05 08:24] LABS: ALB/GLOB Ratio 0.9 RATIO (0.9-2.4); AST(SGOT) 18 U/L (15-37); Alanine Aminotransfer ALT/SGPT 30 U/L (16-61); Albumin, Serum 2.8 g/dL (3.2-5.0); Alkaline Phosphatase 113 U/L (45-117); Anion Gap 6 (5-15); BUN 24 mg/dL (7-18); Calcium,Total 8.5 mg/dL (8.5-10.1); Chloride 110 mmol/L (98-107); Cholesterol 110 mg/dL (200); EST Glomerular Filtration Rate 44 mL/min (>60); Est Glom Filt Rate - Afr Amer 54 mL/min (>60); Estimated Creatinine Clearance 41.16 ml/min; Glucose 131 mg/dL (74-106); High Density Lipoprotein 27 mg/dL; Magnesium 1.8 mg/dL (1.6-2.6); Potassium 3.9 mmol/L (3.5-5.1); Protein, Total 5.8 g/dL (6.4-8.2); Sodium Level 139 mmol/L (136-145); Thyroid Stim Hormone (TSH) 1.58 uIU/mL (0.358-3.74); Triglycerides 91 mg/dL; Very Low Density Lipoprotein 18 mg/dL (5-40)
[2024-01-05] MEDS: Zinc Sulfate 50 mg zinc (220 mg) ORAL capsule PO (09:36)
[2024-01-05] MEDS: Enoxaparin 40 MG/0.4 ML Syringe SC (09:36)
[2024-01-05] MEDS: Ascorbic Acid 500 MG Tablet 1000 MG PO ×2 (09:36→16:09)
[2024-01-05] MEDS: Cholecalciferol (Vit D3) 125 MCG CAPSULE (5,000 UNITS) PO (09:36)
--- NOTE | 2024-01-05 12:21 | CASEMGMT ---
HARPER BATES Assessment Face to Face with patient for initial transition planning/care coordination assessment. HARPER BATES introduced self and role at [facility], pt voices understanding. Pt is A&Ox4 and is resting comfortably in the chair and is calm. Pt at bedside. Care providers, pharmacy, and demographics verified. Admitting dx: UTI, DEAN, Gen Weakness LACE Strata: 2 PCP: Radha Specialists: Kamini Hartman Pharmacy: [facility] Insurance: [facility], [facility] SUPP Prescription Benefit: Yes LNOK: Deedee Ybarra (W) Living Arrangements: Pt lives with his in a single story home with a BM and HR and 2 steps to enter the home without HR. Pt denies issues using the steps. ADLs/IADLs: Ind Transportation: Pt and pt drive DME: Walk in shower with GB and seat. Cane but does not use. Pt denies all other DME uses or needs. HHC/SNF: Denies history or needs. Pt?s goal: Home no needs Plan: Pt 6-Click is 24. Therapy is not recommending any additional therapy. Pt states that he feels safe and comfortable DC home with no additional needs at this time. Phillip Calloway RN, CM
[2024-01-06] MEDS: Acetaminophen 325 MG Tablet 650 MG PO (03:05)
[2024-01-06 03:08] VITALS: BP 146/70; PULSE 103; RESP 16; TEMP 38.3; O2SAT 97
[2024-01-06 04:07] VITALS: TEMP 37.4
[2024-01-06] MEDS: 0.9% Normal Saline (1000mL) 1,000 ML 125 ML IV (05:19)
[2024-01-06 05:30] VITALS: BMI 34.5
--- NOTE | 2024-01-06 07:34 | PN.HOSP_ITS ---
Reason for Visit Reason for Visit: Diagnoses Acute kidney failure, unspecified (01/04/24) Acute cystitis without hematuria (01/04/24) Benign prostatic hyperplasia with lower urinary tract symptoms (01/04/24) Weakness (01/04/24) Subjective Subjective Feels better. Objective Data Objective Data Vital Signs: Vital Signs Temp Pulse Resp BP Pulse Ox O2 Del Method 37.4 C H 103 H 16 146/70 H 97 Room Air 01/06/24 04:07 01/06/24 03:08 01/06/24 03:08 01/06/24 03:08 01/06/24 03:08 01/06/24 03:19 Oxygen Delivery Method Room Air Weight: 103.4 kg Body Mass Index (BMI) 34.5 Intake & Output: Intake and Output for Last 24 Hours 01/04/24 01/05/24 01/06/24 23:59 23:59 23:59 Intake Total 1050 / 1250 3289.17 / 3289.17 991.67 / 991.67 Output Total 150 / 150 Balance 1050 / 1250 3139.17 / 3139.17 991.67 / 991.67 Lab / Micro Data 01/05/24 07:08 01/05/24 07:08 Labs: Laboratory Results - last 24 hr 01/05/24 07:08: WBC 7.0, RBC 4.30 L, Hgb 12.4 L, Hct 38.1 L, MCV 88.6, MCH 28.8, MCHC 32.5, RDW Std Deviation 44.0 H, RDW Coeff of Herminio 13.7, Plt Count 208, MPV 8.8, Immature Gran % (Auto) 0.900, Neut % (Auto) 78.8 H, Lymph % (Auto) 7.1 L, [place] % (Auto) 9.1, Eos % (Auto) 3.4, Baso % (Auto) 0.7, Absolute Neuts (auto) 5.6, Absolute Lymphs (auto) 0.50 L, Nucleated RBC % 0, Sodium 139, Potassium 3.9, Chloride 110 H, Carbon Dioxide 23.0, Anion Gap 6, BUN 24 H, Creatinine 1.60 H, Estim Creat Clear Calc 41.16, Est GFR (MDRD) Af Amer 54 L, Est GFR (MDRD) Non-Af 44 L, BUN/Creatinine Ratio 15.0, Glucose 131 H, Calcium 8.5, Phosphorus 3.8, Magnesium 1.8, Total Bilirubin 0.90, AST 18, ALT 30, Alkaline Phosphatase 113, Total Protein 5.8 L, Albumin 2.8 L, Globulin 3.0, Albumin/Globulin Ratio 0.9, Triglycerides 91, Cholesterol 110, LDL Cholesterol 65, VLDL Cholesterol 18, HDL Cholesterol 27 L, TSH 1.58 Micro: Microbiology 01/04/24 19:30 Urine, Random Urine Culture - Preliminary GNR lactose manager of security 01/04/24 18:50 Mucosa - Nose SARS-CoV-2, Influenza & RSV (PCR) - Final Physical Exam Const alert and no apparent distress Resp normal respiratory effort, no retractions, no use of accessory muscles and clear to auscultation bilaterally Cardio regular rate, regular rhythm, S1 normal heart sound and S2 normal heart sound GI normal to inspection, nondistended, normoactive bowel sounds, soft to palpation, non-tender and non-distended Neuro Sensorium / Orientation: awake and alert Assessment & Plan Assessment/Plan (1) Acute cystitis without hematuria: (2) BPH (benign prostatic hyperplasia): QUALIFIERS: Lower urinary tract symptom detail: unspecified Lower urinary tract symptom presence: symptoms present Qualified Code(s): N40.1 - Benign prostatic hyperplasia with lower urinary tract symptoms (3) Generalized weakness: PLAN: Plan UTI * Previously has had E. coli that was pansensitive back in November. Patient had received ceftriaxone in the switched over to meropenem as patient is still having fevers. I do not feel that that was necessarily a failure of the ceftriaxone. Will continue with the meropenem for now and wait on final results of urine culture. * Patient does have a history of catheters and self catheterizations, however, patient has not had need of a catheter nor self-catheterization in about 3 weeks, therefore, this is not a CAUTI * UCx E. coli, espinal-sensitive and possible Enterococcus sp (11-25k cfus) * Will change to cephalexin. Acute kidney injury ruled out. Creatinine was 2.03 with a baseline of 1.61. This does not substantiate the diagnosis of acute kidney injury. Debility * secondary to urinary tract infection. * Improved. Did well. No additional therapy. Chronic conditions: * Essential hypertension - Hold scheduled antihypertensives until volume status is corrected. Give IV hydralazine as needed for systolic blood pressure greater than 160 mmHg. * Hyperlipidemia - Stable. Check lipid profile this admission with patient currently not on treatment. * Obesity; with BMI of 34 this admission - Weight loss will be recommended. Check TSH. * BPH - Stable. Check PSA screen in light of #1 and #2. * OA; with history of failed Left TKR - Noted. Give Tylenol as needed. DVT prophylaxis - Lovenox 30 mg subcu daily.
[2024-01-06 07:39] VITALS: BP 144/81; PULSE 87; RESP 18; TEMP 36.7; O2SAT 98
[2024-01-06] MEDS: Zinc Sulfate 50 mg zinc (220 mg) ORAL capsule PO (07:44)
[2024-01-06] MEDS: Cholecalciferol (Vit D3) 125 MCG CAPSULE (5,000 UNITS) PO (07:44)
[2024-01-06] MEDS: Enoxaparin 40 MG/0.4 ML Syringe SC (07:44)
[2024-01-06] MEDS: Ascorbic Acid 500 MG Tablet 1000 MG PO (07:44)
[2024-01-06] MEDS: Meropenem 1 GM in 0.9% Normal Saline (100mL Bag) 100 ML IV (09:31)
[2024-01-06 10:44] VITALS: O2SAT 97
--- NOTE | 2024-01-06 11:52 | PCM.DC.SUM ---
Providers Date of Admission: 01/04/24 Primary Care Physician: Yamileth Garcia MD Reason For Visit: UTI, DEAN & GENERALIZED WEAKNESS WITH AMBULATORY Diagnosis Discharge Diagnosis (1) Acute cystitis without hematuria: Status: Acute Code(s): N30.00 - Acute cystitis without hematuria (2) BPH (benign prostatic hyperplasia): Status: Acute Code(s): N40.0 - Benign prostatic hyperplasia without lower urinary tract symptoms Qualifiers: Lower urinary tract symptom presence: symptoms present Lower urinary tract symptom detail: unspecified Qualified Code(s): N40.1 - Benign prostatic hyperplasia with lower urinary tract symptoms (3) Generalized weakness: Status: Acute Code(s): R53.1 - Weakness Plan UTI Previously has had E. coli that was pansensitive back in November. Patient had received ceftriaxone in the switched over to meropenem as patient is still having fevers. I do not feel that that was necessarily a failure of the ceftriaxone. Will continue with the meropenem for now and wait on final results of urine culture. Patient does have a history of catheters and self catheterizations, however, patient has not had need of a catheter nor self-catheterization in about 3 weeks, therefore, this is not a CAUTI UCx E. coli, espinal-sensitive and possible Enterococcus sp (11-25k cfus) Will change to cephalexin. Acute kidney injury ruled out. Creatinine was 2.03 with a baseline of 1.61. This does not substantiate the diagnosis of acute kidney injury. Debility secondary to urinary tract infection. Improved. Did well. No additional therapy. Chronic conditions: Essential hypertension - Hold scheduled antihypertensives until volume status is corrected. Give IV hydralazine as needed for systolic blood pressure greater than 160 mmHg. Hyperlipidemia - Stable. Check lipid profile this admission with patient currently not on treatment. Obesity; with BMI of 34 this admission - Weight loss will be recommended. Check TSH. BPH - Stable. Check PSA screen in light of #1 and #2. OA; with history of failed Left TKR - Noted. Give Tylenol as needed. DVT prophylaxis - Lovenox 30 mg subcu daily. Medications at Discharge Home Medications amlodipine 10 mg tablet 10 mg PO DAILY 01/04/24 furosemide 20 mg tablet 20 mg PO DAILY PRN PRN swelling 01/04/24 cephalexin 500 mg capsule 500 mg PO Q8H #15 caps 01/06/24 Hospital Course Operations None Procedures None Summary of Care Provided Minutes Spent on Discharge: 32 Hospital Course: Patient presented with weakness. Patient found to have a urinary tract infection. Came back showing E. coli and possible Enterococcus. Enterococcus possibility was low 10-25,000 coliform units. That is felt not to be actual infection but rather E. coli which is pansensitive. Patient will be discharged with cephalexin. With his weakness, patient was evaluate by therapy who recommended no additional services. Patient be discharged home Weight / BMI Weight Weight: 103.4 kg Body Mass Index (BMI) 34.5 ABG / Lab / Microbiology Data 01/05/24 07:08 01/05/24 07:08 Microbiology: Microbiology 01/04/24 19:30 Urine, Random Urine Culture - Preliminary Escherichia coli GPC Poss Enterococcus sp 01/04/24 18:50 Mucosa - Nose SARS-CoV-2, Influenza & RSV (PCR) - Final D/C Instructions Discharge Diet: No restrictions Meaningful Use Info Meaningful Use Diagnoses (Choose all that apply): None applicable Discharge Plan Admission Admit Date/Time: 01/04/24 21:38 Primary Reason for Your Visit: Urinary tract infection Attending Provider: Aldo Jones Primary Care Provider: Yamileth Garcia Consulting Providers: Vicente Luke Discharge Orders/Prescriptions Prescriptions: New cephalexin 500 mg capsule 500 mg PO Q8H Qty: 15 0RF Continued furosemide 20 mg tablet 20 mg PO DAILY PRN PRN (Reason: swelling) Patient Comments: 1 (ONE) TABLET BY MOUTH NEEDED, ONE A DAY NEEDED FOR SWOLLEN ANKLES amlodipine 10 mg tablet 10 mg PO DAILY Patient Comments: TAKE 1 TABLET BY MOUTH EVERY DAY Referrals / Follow Up: Yamileth Garcia MD [Primary Care Provider] - Within 2 Weeks Disposition Disposition (needs filled in before D/C Order can be placed): Home, Self Care Charges/Coding Visit Charges Inpatient E&M: 26245 Disch Hosp >30min
[2024-01-06 13:37] VITALS: BP 163/103; PULSE 104; RESP 18; TEMP 37.2; O2SAT 93
--- NOTE | 2024-01-06 14:08 | PHA.DC.MC.R ---
Pharmacy [facility] has performed discharge medication reconciliation and counseling for this patient. Patient was initially counseled on cephalexin but patient said he would rather not take that as he had it last month and had trouble tolerating it (weakness, upset stomach, nausea). Texted Dr. Jones and he sent in levofloxacin in place of cephalexin. 1. LEVOFLOXACIN 750MG Q48 X 3 DOSES The patient's discharge medication list was reviewed for discrepancies and discrepancies were resolved. The patient was counseled on the following discharge medications and changes in medications for homegoing were reviewed. The Reason for Use, instructions for use, and potential side effects were reviewed for all new medications. The patient's questions regarding all of their medications were answered. The patient was able to verbally demonstrate an understanding of their discharge medications. Patient counseled by pharmacy affairs assistant, Torito. Medications at Discharge Home Medications amlodipine 10 mg tablet 10 mg PO DAILY 01/04/24 cephalexin 500 mg capsule 500 mg PO Q8H #15 caps 01/06/24 levofloxacin 750 mg tablet 750 mg PO Q48H #3 tabs 01/06/24
== END 2024-01-06 14:00 | disposition home or self-care (01) | DRG 690 ==
LOC: ED 20:27 → MS3 21:44
PROVIDERS: Physician Assistant; Admitting Provider Internal Medicine; Emergency Provider Emergency Medicine; PCP Family Medicine
DX: N30.00 Acute cystitis without hematuria (principal); B95.2 Enterococcus as the cause of diseases classified elsewhere; I10 Essential (primary) hypertension; E78.00 Pure hypercholesterolemia, unspecified; M19.90 Unspecified osteoarthritis, unspecified site; E66.9 Obesity, unspecified; N40.1 Benign prostatic hyperplasia with lower urinary tract symptoms; R53.1 Weakness; Z79.899 Other long term (current) drug therapy; Z68.34 Body mass index [BMI] 34.0-34.9, adult
CPT/HCPCS: 71045; 80048; 80053; 80061; 81001; 83735; 84100; 84443; 85025; 87077; 87086; 87088; 87186; 87631; 94668; 97161; 97165; 99283; J2185; J7030; A4216

== ENCOUNTER → 2025-01-11 | Outpatient (CLI) | payer MEDICARE, OTHER, SELFPAY ==
[2025-01-11 10:07] LABS: Absolute Lymphocyte Count 1.55 X10^3/uL (0.83-4.51); Absolute Neutrophil Count 3.2 X10^3/uL (2.0-7.7); Basophil# 0.08 X10^3/uL; Basophil% 1.2 % (0-1); Eosinophil# 0.76 X10^3/uL; Eosinophils% 11.5 % (0-5); Hemoglobin 17.1 g/dL (13.0-16.5); Lymphocyte # 1.55 X10^3/ul (0.83-4.51); Lymphocyte % 23.5 % (19-41); Mean Corp Hgb Conc 34.2 g/dL (32-36); Mean Corpuscular Hgb 30.3 pg (27.0-32.0); Mean Corpuscular Volume 88.7 fL (80-94); Mean Platelet Vol. 9.1 fl (6.2-12.0); Monocyte% 15.2 % (0-10); NRBC Flagged by Analyzer 0 % (0-5); Neutrophil # 3.16 X10^3/uL (2.7-7.7); Platelet Count 219 K/mm3 (150-450); RBC Distribution Width CV 12.6 % (11.6-14.6); RBC Distribution Width SD 40.9 fl (35.1-43.9); Red Blood Count 5.64 M/mm3 (4.6-6.2); White Blood Count 6.6 K/mm3 (4.4-11.0)
[2025-01-11 11:06] LABS: ALB/GLOB Ratio 1.5 RATIO (0.9-2.4); AST(SGOT) 27 U/L (<=37); Alanine Aminotransfer ALT/SGPT 27 U/L (<=46); Albumin, Serum 4.2 g/dL (3.4-4.8); Alkaline Phosphatase 127 U/L (40-129); Anion Gap 13 (5-15); BUN 22 mg/dL (4-19); BUN/Creat Ratio 13.3 RATIO (10-20); Calcium,Total 9.8 mg/dL (7.6-11.0); Carbon Dioxide 22.1 mmol/L (21.0-32.0); Chloride 104 mmol/L (98-108); Cholesterol 160 mg/dL (<=200); Creatinine, Serum 1.68 mg/dL (0.70-1.20); EST Glomerular Filtration Rate 40 (>60); Globulin 2.8 g/dL (2.2-4.2); Glucose 101 mg/dL (70-99); High Density Lipoprotein 35 mg/dL; Low Density Lipoprotein Calc. 96 mg/dL; PSA,Total - Annual Screen 3.72 ng/mL (0.02-4.00); Potassium 4.4 mmol/L (3.3-5.1); Sodium Level 140 mmol/L (133-145); Total Bilirubin 1.05 mg/dL (0.00-1.30); Triglycerides 146 mg/dL; Very Low Density Lipoprotein 29 mg/dL (5-40); cholesterol:hdl ratio screen 4.58
== END | disposition home or self-care (01) ==
LOC: MFPLAB 09:05
PROVIDERS: PCP Family Medicine; Referring Provider Family Medicine; Visit Provider Family Medicine
DX: I10 Essential (primary) hypertension (principal); Z12.5 Encounter for screening for malignant neoplasm of prostate
CPT/HCPCS: 36415; 80053; 80061; 84153; 85025; G0103

== ENCOUNTER → 2025-06-12 | Outpatient (CLI) | payer MEDICARE, OTHER, SELFPAY ==
[2025-06-12 10:54] LABS: Hematocrit 51.3 % (40-54); Hemoglobin 17.8 g/dL (13.0-16.5); Immature Granulocytes Count 0.040 X10^3/uL (0.0-0.0); Mean Corp Hgb Conc 34.7 g/dL (32-36); Mean Corpuscular Volume 88.8 fL (80-94); Mean Platelet Vol. 9.4 fl (6.2-12.0); NRBC Flagged by Analyzer 0 % (0-5); Platelet Count 221 K/mm3 (150-450); RBC Distribution Width CV 13.0 % (11.6-14.6); RBC Distribution Width SD 42.5 fl (35.1-43.9); Red Blood Count 5.78 M/mm3 (4.6-6.2); White Blood Count 5.6 K/mm3 (4.4-11.0)
[2025-06-12 11:36] LABS: AST(SGOT) 28 U/L (<=37); Alanine Aminotransfer ALT/SGPT 35 U/L (<=46); Albumin, Serum 4.4 g/dL (3.4-4.8); Alkaline Phosphatase 105 U/L (40-129); Anion Gap 14 (5-15); BUN 21 mg/dL (4-19); BUN/Creat Ratio 13.8 RATIO (10-20); Calcium,Total 9.7 mg/dL (7.6-11.0); Carbon Dioxide 21.4 mmol/L (21.0-32.0); Chloride 105 mmol/L (98-108); Cholesterol 158 mg/dL (<=200); Globulin 2.8 g/dL (2.2-4.2); Glucose 107 mg/dL (70-99); Low Density Lipoprotein Calc. 89 mg/dL; Potassium 4.2 mmol/L (3.3-5.1); Triglycerides 168 mg/dL; Very Low Density Lipoprotein 34 mg/dL (5-40); cholesterol:hdl ratio screen 4.43
== END | disposition home or self-care (01) ==
LOC: MFPLAB 08:07
PROVIDERS: PCP Family Medicine; Visit Provider Family Medicine
DX: I10 Essential (primary) hypertension (principal); N40.0 Benign prostatic hyperplasia without lower urinary tract symptoms
CPT/HCPCS: 36415; 80053; 80061; 85025

== ENCOUNTER → 2025-06-19 | Outpatient (CLI) | payer MEDICARE, OTHER, SELFPAY ==
--- NOTE | 2025-06-19 10:45 | RAD_ITS ---
PROCEDURE: LUMBAR SPINE 2 OR 3 VIEWS 06/19/2025 REASON FOR EXAM: DORSALGIA TECHNIQUE: LUMBAR SPINE 2 OR 3 VIEWS FINDINGS: [id number] discogenic degenerative changes of the visualized spine. Lower lumbar facet arthropathy. Grade 1 retrolisthesis of L1 on L2, L2 on L3. And grade 1 anterolisthesis of L4 on L5. RAD/Lumbar Spine 2 or 3 Views IMPRESSION: Spondylosis. Spondylolisthesis. Reading Location: [id number]
--- NOTE | 2025-06-19 10:45 | RAD_ITS ---
PROCEDURE: LUMBAR SPINE 2 OR 3 VIEWS 06/19/2025 REASON FOR EXAM: DORSALGIA TECHNIQUE: LUMBAR SPINE 2 OR 3 VIEWS FINDINGS: [id number] discogenic degenerative changes of the visualized spine. Lower lumbar facet arthropathy. Grade 1 retrolisthesis of L1 on L2, L2 on L3. And grade 1 anterolisthesis of L4 on L5. RAD/Lumbar Spine 2 or 3 Views IMPRESSION: Spondylosis. Spondylolisthesis. Reading Location: [id number]
== END | disposition home or self-care (01) ==
LOC: MTRAD 10:43
PROVIDERS: PCP Family Medicine; Referring Provider Family Medicine; Visit Provider Family Medicine
DX: M54.9 Dorsalgia, unspecified (principal)
CPT/HCPCS: 72100